=== PATIENT | female | born 1945 | race Caucasian/White ===

== ENCOUNTER → 2017-07-19 08:21 | Outpatient (CLI) | payer MEDICARE, OTHER, SELFPAY ==
[2017-07-19 12:34] LABS: AST(SGOT) 32 U/L (15-37); Alanine Aminotransfer ALT/SGPT 47 U/L (13-56); Albumin, Serum 3.5 g/dL (3.2-5.0); Alkaline Phosphatase 107 U/L (45-117); Bilirubin, Direct 0.07 mg/dL (0.00-0.30); Cholesterol 171 mg/dL (200); Globulin 3.8 g/dL (2.2-4.2); High Density Lipoprotein 50 mg/dL; Protein, Total 7.3 g/dL (6.4-8.2); Triglycerides 165 mg/dL; Very Low Density Lipoprotein 33 mg/dL (5-40)
== END ==
PROVIDERS: Family Provider Family Medicine; PCP Family Medicine; Visit Provider Physician Assistant Medical
DX: E78.5 Hyperlipidemia, unspecified (principal); Z79.899 Other long term (current) drug therapy
CPT/HCPCS: 36415; 80061; 80076

== ENCOUNTER → 2018-02-16 09:44 | Outpatient (CLI) | payer MEDICARE, OTHER, SELFPAY ==
[2018-02-16 12:18] LABS: Absolute Lymphocyte Count 1.27 X10^3/ul (0.83-4.51); Absolute Neutrophil Count 3.6 X10^3/uL (2.0-7.7); Basophil# 0.06 X10^3/uL; Basophil% 1.1 % (0-1); Eosinophil# 0.18 X10^3/uL; Eosinophils% 3.3 % (0-5); Hematocrit 39.2 % (37-47); Lymphocyte # 1.27 X10^3/ul (4.0); Lymphocyte % 23.4 % (19-41); Mean Corp Hgb Conc 30.6 g/gl (32-36); Mean Corpuscular Hgb 25.2 pg (27.0-32.0); Mean Corpuscular Volume 82.4 fL (81-99); Mean Platelet Vol. 9.8 fl (6.2-12.0); Monocyte# 0.33 X10^3/uL; Monocyte% 6.1 % (0-10); Neutrophil # 3.58 X10^3/uL (2.7-7.7); Neutrophil % 65.9 % (47-70); Platelet Count 275 K/mm3 (150-450); RBC Distribution Width CV 14.5 % (11.6-14.6); RBC Distribution Width SD 43.3 fl (35.1-43.9); Red Blood Count 4.76 M/mm3 (4.2-5.4); White Blood Count 5.4 K/mm3 (4.4-11.0)
[2018-02-16 12:21] LABS: POSITIVE COUNT NO; POSITIVE DIFFERENTIAL NO; POSITIVE MORPHOLOGY NO
[2018-02-16 12:36] LABS: ALB/GLOB Ratio 0.8 RATIO (0.9-2.4); AST(SGOT) 27 U/L (15-37); Alanine Aminotransfer ALT/SGPT 36 U/L (13-56); Albumin, Serum 3.4 g/dL (3.2-5.0); Alkaline Phosphatase 110 U/L (45-117); Anion Gap 9 (5-15); BUN 16 mg/dL (7-18); BUN/Creat Ratio 16.1 RATIO (10-20); Calcium,Total 8.5 mg/dL (8.5-10.1); Chloride 109 mmol/L (98-107); Creatinine, Serum 0.99 mg/dL (0.55-1.02); EST Glomerular Filtration Rate 59 mL/min (>60); Est Glom Filt Rate - Afr Amer 71 mL/min (>60); Globulin 4.1 g/dL (2.2-4.2); Glucose 110 mg/dL (74-106); Protein, Total 7.5 g/dL (6.4-8.2); Sodium Level 141 mmol/L (136-145); T4 Free Direct 1.21 ng/dL (0.76-1.46); Thyroid Stim Hormone (TSH) 5.14 uIU/mL (0.358-3.74)
== END ==
PROVIDERS: Family Provider Family Medicine; PCP Family Medicine; Visit Provider Nurse Practitioner Family
DX: E03.9 Hypothyroidism, unspecified (principal); E78.5 Hyperlipidemia, unspecified; R73.01 Impaired fasting glucose
CPT/HCPCS: 36415; 80053; 84439; 84443; 85025

== ENCOUNTER → 2018-03-31 10:41 | Outpatient (CLI) | payer MEDICARE, OTHER, SELFPAY ==
--- NOTE | 2018-03-31 10:44 | BI_ITS ---
MAMMOGRAPHY - BILATERAL SCREENING REASON FOR EXAM: Female, 72 years old. Routine annual screening examination. PERTINENT HISTORY: Mother with breast cancer. TECHNIQUE: Digital bilateral breast jelena (3D mammographic acquisition) in the CC and MLO projections. 2-D mediolateral oblique (MLO) and craniocaudad (CC) views of both breasts were obtained. CAD: Full Field Digital Mammography with Computer Added Detection was performed. COMPARISON: Comparison is made with prior study dated December 22, 2016 and December 16, 2015. FINDINGS: Breast Composition: There are scattered areas of fibroglandular density. There now is evidence of a 1 cm x 1 cm slightly irregular nodule in the deep upper lateral portion of the right breast. Correlation with ultrasound is recommended. No other significant abnormalities are identified. BI/SCREENING MAMM (CAD), BILAT IMPRESSION: 1 cm x 1 cm slightly irregular nodule in the deep upper lateral portion of the right breast. Correlation with ultrasound is recommended. ASSESSMENT CATEGORY: BIRADS Category 0: Incomplete. Need additional imaging evaluation. A letter regarding these results will be sent to the patient by the facility within 30 days. Approximately 10% of breast cancers are not detected by mammography. A normal mammogram should not delay biopsy of a clinically suspicious abnormality. [id number] Electronically Signed: Jarad Max MD at 12:26 EST Tel [phone], Service support ,
--- OUTSIDE RECORDS SUMMARY | 2018-05-26 06:49 | XMS RPT_ITS ---
:1945 Author Organization OHIP Support Name Relationship Address Phone RADHA THORNTON Unavailable [address] [facility] + [place] [address] R Unavailable Unavailable Unavailable NORBERTO, RADHA Unavailable [address] [facility] + [place] [address] R Unavailable Unavailable Unavailable NORBERTO, RADHA Unavailable [address] [facility] + [place] [address] R Unavailable Unavailable Unavailable NORBERTO, RADHA Unavailable [address] [facility] + [place] [address] R Unavailable Unavailable Unavailable NORBERTO, RADHA Unavailable [address] [facility] + [place] [address] R Unavailable Unavailable Unavailable NORBERTO, RADHA Unavailable [address] [facility] + [place] [address] R Unavailable Unavailable Unavailable NORBERTO, RADHA Unavailable [address] [facility] + [place] [address] R Unavailable Unavailable Unavailable NORBERTO, RADHA Unavailable [address] [facility] + [place] [address] R Unavailable Unavailable Unavailable NORBERTO, RADHA Unavailable [address] [facility] + [place] [address] R Unavailable Unavailable Unavailable NORBERTO, RADHA Unavailable [address] [facility] + [place] [address] R Unavailable Unavailable Unavailable Care Team Providers Name Role Phone Ermias Vallejo Attending Unavailable Portillo Qureshi Referring Unavailable Nova Hussein Attending Unavailable Portillo Qureshi Primary Care Unavailable Cecilia Mcmanus Attending Unavailable Cecilia Mcmanus Attending Unavailable Cathy Camargo Attending Unavailable Alexis Noriega Attending Unavailable Portillo Qureshi Referring Unavailable Portillo Qureshi Primary Care Unavailable Alexis Noriega Attending Unavailable Portillo Qureshi Referring Unavailable Hari, Alexis Humphrey Attending Unavailable Portillo Qureshi Primary Care Unavailable Portillo Qureshi Attending Unavailable Portillo Qureshi Primary Care Unavailable Portillo Qureshi Attending Unavailable Portillo Qureshi Primary Care Unavailable PROBLEMS PROBLEMS DATE TYPE CONDITION / CODE ATTENDING STATUS SOURCE 03/31/2018 Unknown Z12.31 - Encounter Portillo Qureshi Active [place] for screening Community mammogram for Hospital malignant neoplasm of Repository breast / Z12.31(ICD-10) 02/16/2018 Unknown R73.01 - Impaired RoofAlexis Active [place] fasting glucose / Community R73.01(ICD-10) Hospital Repository 02/16/2018 Unknown E03.9 - Roof, Alexis Active [place] Hypothyroidism, Community unspecified / Hospital E03.9(ICD-10) Repository 02/16/2018 Unknown E78.5 - RoofAlexis Active [place] Hyperlipidemia, [facility] unspecified / Hospital E78.5(ICD-10) Repository 02/13/2018 Unknown I25.10 - Alexis Noriega Active [place] Atherosclerotic heart [facility] disease [facility] coronary artery Repository without angina pectoris / I25.10(ICD-10) 02/13/2018 Unknown E78.00 - Pure RoofAlexis Active [place] hypercholesterolemia, [facility] unspecified / Hospital E78.00(ICD-10) Repository 02/13/2018 Unknown I10 - Essential Alexis Noriega Active [place] (primary) Community hypertension / Hospital I10(ICD-10) Repository 08/19/2017 Unknown Z98.61 - [facility] [place] [facility] status / Community Z98.61(ICD-10) Hospital Repository PROCEDURES PROCEDURES No Procedure Records FoundRESULTS RESULTS BREAST LIMITED Observed: 04/03/2018 Status: F Source: [place] UNILATERAL 12:06 PM [facility] REPOSITORY [facility] Imaging Services [address] [place] [address] Breast Limited Unilateral MR#: [id number] Acct: [id number] Name: SUJATHA THORNTON Rep #: [id number] : 1945 F 72 From: Jarad Max MD PCP: Portillo Qureshi MD Status: REG CLI Study: Breast Limited Unilateral Date of Exam: 04/03/18 Exam# [id number] Ordering Dr: Portillo Qureshi MD STUDY: ULTRASOUND BREAST - RIGHT REASON FOR EXAM: Female, 72 years old. Abnormal screening mammogram. TECHNIQUE: Axial and longitudinal images of the RIGHT breast were performed with a high resolution ultrasound transducer. COMPARISON: Comparison is made with prior mammogram done earlier in the day and prior ultrasound of the right breast dated February 11, 2014. FINDINGS: RIGHT Breast: 9 mm x 9 mm x 4 mm septated cyst at the 11:00 position of the breast at 7 cm from the nipple. US/Breast Limited Unilateral IMPRESSION: The mammographic abnormality corresponds to a small septated cyst at the 11:00 position of the breast at 7 cm from the nipple. ASSESSMENT CATEGORY: BIRADS Category 2: Benign. A letter regarding these results will be sent to the patient by the facility within 30 days. Electronically Signed: Jarad Max MD at 15:05 EST Tel [phone], Service support , CC: Portillo Qureshi MD Car Blocker: Signed SCREENING MAMM (CAD), Observed: 03/31/2018 Status: F Source: [place] BILAT 10:44 AM [facility] [place] [facility] Imaging Services [address] [place] [id number] SCREENING MAMM (CAD), BILAT MR#: [id number] Acct: [id number] Name: SUJATHA THORNTON Rep #: [id number] : 1945 F 72 From: Jarad Max MD PCP: Portillo Qureshi MD Status: [facility] CLI Study: SCREENING MAMM (CAD), BILAT Date of Exam: 03/31/18 Exam# [id number] Ordering Dr: Portillo Qureshi MD MAMMOGRAPHY - BILATERAL SCREENING REASON FOR EXAM: Female, 72 years old. Routine annual screening examination. PERTINENT HISTORY: Mother with breast cancer. TECHNIQUE: Digital bilateral breast jelena (3D mammographic acquisition) in the CC and MLO projections. 2-D mediolateral oblique (MLO) and craniocaudad (CC) views of both breasts were obtained. CAD: Full Field Digital Mammography with Computer Added Detection was performed. COMPARISON: Comparison is made with prior study dated December 22, 2016 and December 16, 2015. FINDINGS: Breast Composition: There are scattered areas of fibroglandular density. There now is evidence of a 1 cm x 1 cm slightly irregular nodule in the deep upper lateral portion of the right breast. Correlation with ultrasound is recommended. No other significant abnormalities are identified. BI/SCREENING MAMM (CAD), BILAT IMPRESSION: 1 cm x 1 cm slightly irregular nodule in the deep upper lateral portion of the right breast. Correlation with ultrasound is recommended. ASSESSMENT CATEGORY: BIRADS Category 0: Incomplete. Need additional imaging evaluation. A letter regarding these results will be sent to the patient by the facility within 30 days. Approximately 10% of breast cancers are not detected by mammography. A normal mammogram should not delay biopsy of a clinically suspicious abnormality. [id number] Electronically Signed: Jarad Max MD at 12:26 EST Tel [phone], Service support , CC: Portillo Qureshi MD Car Blocker: Signed CBC W/DIFF, AUTOMATED Collected: 02/16/2018 Status: F Source: [place] 9:47 AM [facility] [place] Order Comment: PLEASE SEND FINISH REMOVER. ROOF COPY OF CMP TYPE CODE TESTS RESULT OUT OF RANGE REFERENCE UNITS LAB L100.1000 4.4-11.0 K/mm3 Normal WBC 5.4 LAB L100.1200 4.2-5.4 M/mm3 Normal RBC 4.76 LAB L100.1300 12.0-15.0 g/dl Normal HGB 12.0 LAB L100.1400 37-47 % Normal HCT 39.2 LAB L100.1500 81-99 fL Normal MCV 82.4 LAB L100.1600 27.0-32.0 pg Low MCH 25.2 LAB L100.1700 32-36 g/gl Low MCHC 30.6 LAB L100.1810 11.6-14.6 % Normal RDW CV 14.5 LAB L100.1820 35.1-43.9 fl Normal RDW SD 43.3 LAB L100.1900 150-450 K/mm3 Normal PLT 275 LAB L100.2000 6.2-12.0 fl Normal MPV 9.8 LAB L100.2100 47-70 % Normal NEUT% 65.9 LAB L100.2200 19-41 % Normal LY% 23.4 LAB L100.2300 0-10 % Normal MONO% 6.1 LAB L100.2400 0-5 % Normal EO% 3.3 LAB L100.2500 0-1 % High BASO% 1.1 LAB L100.2550 0.0-0.9 % Normal IM GRAN % 0.200 Result Comment: IG% - Immature Granulocytes (promyelocytes, myelocytes and metamyelocytes) > 1% indicates that a LEFT SHIFT is Present. LAB L100.2620 2.0-7.7 X10 3/uL Normal Absolute Neut 3.6 LAB L100.2720 0.83-4.51 X10 3/ul Normal Absolute Lymph 1.27 Performed By: #### L100.0100 #### [facility] [address] [place], [address] COMPREHENSIVE METABOLIC Collected: 02/16/2018 Status: F Source: [place]OME[place] 9:47 AM [facility] [place] Order Comment: PLEASE SEND FINISH REMOVER. ROOF COPY OF CMP TYPE CODE TESTS RESULT OUT OF RANGE REFERENCE UNITS LAB L501.0100 74-106 mg/dL High GLU 110 Result Comment: Fasting Glucose result from 100 to 125 mg/dL suggests IMPAIRED HOMEOSTASIS per A.D.A. criteria. Please note revised GLUCOSE reference range effective 2017. LAB L501.1000 7-18 mg/dL Normal BUN 16 LAB L501.1100 0.55-1.02 mg/dL Normal CREAT,SERUM 0.99 Result Comment: The validity of the calculated GFR AND GFRAA in patients over 70 years has not been determined. Clinical correlation is essential. LAB L501.1110 >60 mL/min Low EST GFR 59 Result Comment: Non- GFR Calc LAB L501.1115 >60 mL/min Normal EST GFR - AA 71 Result Comment: GFR Calc LAB L501.1300 10-20 RATIO Normal BUN/CRE 16.1 LAB L501.1500 6.4-8.2 g/dL T Normal PROT 7.5 LAB L501.1800 3.2-5.0 g/dL Normal ALB 3.4 LAB L501.1950 2.2-4.2 g/dL Normal GLOB 4.1 LAB L501.2000 0.9-2.4 RATIO Low A/G 0.8 LAB L501.2200 8.5-10.1 mg/dL CA Normal 8.5 LAB L501.4100 15-37 U/L Normal AST 27 LAB L501.4305 45-117 U/L Normal ALK P 110 LAB L501.4405 13-56 U/L Normal ALT 36 LAB L501.4600 0.20-1.00 mg/dL T Normal BILI 0.40 LAB L501.5300 136-145 mmol/L NA Normal 141 LAB L501.5600 3.5-5.1 mmol/L K Normal 4.0 LAB L501.5900 98-107 mmol/L High CL 109 LAB L501.6100 21.0-32.0 mmol/L Normal CO2 23.0 LAB L501.6200 5-15 Normal GAP 9 Performed By: #### L500.4050, L501.9520, L506.0400 #### [facility] [address] [place], [place], [id number] THYROID STIM HORMONE Collected: 02/16/2018 Status: F Source: [place] (TSH) 9:47 AM [facility] [place] Order Comment: PLEASE SEND FINISH REMOVER. ROOF COPY OF CMP TYPE CODE TESTS RESULT OUT OF RANGE REFERENCE UNITS LAB L501.9520 0.358-3.74 uIU/mL High TSH 5.14 Performed By: #### L500.4050, L501.9520, L506.0400 #### [facility] [address] [place], [address] T4 FREE DIRECT Collected: 02/16/2018 Status: F Source: [place] 9:47 AM [facility] Order Comment: PLEASE SEND NP. NORIEGA COPY OF CMP TYPE CODE TESTS RESULT OUT OF RANGE REFERENCE UNITS LAB L506.0400 0.76-1.46 ng/dL Normal T4 FREE 1.21 DIRECT Performed By: #### L500.4050, L501.9520, L506.0400 #### [facility] [address] [place], [address] CARDIOLOGY VISIT Observed: 02/13/2018 Status: F Source: [place] REPORT 11:56 AM [facility] [place] [facility] [address] [place] [address] OFFICE VISIT Date of Service: 02/13/18 MR#: [id number] Acct: [id number] Name: SUJATHA THORNTON Rep #: [id number] : 1945 Provider: RED Noriega Age/Sex: 72/F Location: [facility] Status: Signed HPI HPI Details: SUJATHA THORNTON, is a 72 F who presents to the office today for a cardiovascular outpatient follow-up. She is a history of coronary artery disease status post angioplasty and stenting to the mid to proximal LAD and PTCA diagonal 1 in September 2014. She also has history of hypertension and hyperlipidemia. Pt denies chest, arm, jaw, or neck discomfort. Her exercise tolerance is stable. Pt denies symptoms of CHF, lightheadedness, near syncopal or syncopal episodes. Pt denies edema or claudication issues. Pt. denies orthopnea, PND, fever, chills, blood in urine, blood in stool, myalgia, or unexplainable fatigue. Pt. states when resting she gets a spell that she describes a flutter. This occurs rarely and can occur at rest and with exertion. She states feeling dizziness with quick position changes. Intake Vital Signs02/13/18 Height 5 ft 4 in 02/13/18 Weight: 190 lb 02/13/18 Body Mass Index (BMI) 32.5 02/13/18 Blood Pressure 148/78 H 02/13/18 Blood Pressure Location Lt brachial Intake Visit Reasons: 6 M FU Supervisory Clerk Required: No Accompanied by: None Is patient in pain?: No Allergies Penicillins Allergy (Unknown, Verified 02/13/18 11:13) Hives Medications Fluoxetine HCl [Sarafem] 40 mg PO DAILY 09/17/13 [History Confirmed 02/13/18] Naproxen Sodium [Aleve] 220 mg PO DAILY PRN PRN 09/17/13 [History Confirmed 02/13/18] Aspirin [Aspirin, Baby] 81 mg PO DAILY@0800 10/15/14 [History Confirmed 02/13/18] atorvastatin 80 mg tablet 80 mg PO QDAY 08/16/17 [History Confirmed 02/13/18] clopidogrel 75 mg tablet 75 mg PO QDAY 08/16/17 [History Confirmed 02/13/18] lisinopril 5 mg tablet 5 mg PO QDAY 08/16/17 [History Confirmed 02/13/18] metoprolol succinate ER 25 mg tablet,extended release 24 hr 25 mg PO QDAY 08/16/17 [History Confirmed 02/13/18] omeprazole 20 mg capsule,delayed release 20 mg PO BID cap 08/19/17 [History Confirmed 02/13/18] levothyroxine 100 mcg capsule 100 mcg PO DAILY 02/13/18 [History Confirmed 02/13/18] Ejection fraction %: 65 to 70 PFSH Medical History Pure hypercholesterolemia (Chronic) Atherosclerosis of torres martinez coronary artery of torres martinez heart without angina pectoris (Chronic) Palpitations (Chronic) Nonrheumatic mitral valve insufficiency (Chronic) Abnormal stress test (Chronic) Encounter for long-term current use of high risk medication (Chronic) Bradycardia, sinus (Chronic) Essential (primary) hypertension (Chronic) Dizziness and giddiness (Acute) Surgical History History of carpal tunnel surgery (Resolved) History of tonsillectomy (Resolved) H/O percutaneous transluminal coronary angioplasty (Resolved) History of herniated intervertebral disc (Resolved) Family History Mother Breast cancer Hypertension Father Cancer lung Brother CAD (coronary artery disease) Myocardial infarction Social History Smoking Status: Never smoker alcohol intake: current alcohol intake frequency: a few times a month Alcohol type: wine substance use type: does not use caffeine: Yes Type: coffee Number of servings: 2 what type of physical activity do you participate in: none seatbelt use: always do you feel safe at home: Yes ROS Const Const: Negative for fatigue, weakness, body ache, fever(s) or chills ENT ENT: Positive for dizziness Cardio Chest Pain: No Palpitations: Yes (unchanged) Edema: None Muscle aches with walking: None Resp Respiratory: Negative for SOB with activity, SOB at rest, SOB orthopnea\SOB lying down or paroxysmal nocturnal dyspnea GI GI: Negative nausea, black,tarry stools, bright, red blood in stools or vomiting blood/hematemesis : Negative for hematuria or frequent nighttime urination/ nocturia Musc Musc: Positive for joint pain; negative for muscle aches/ myalgia Skin Skin: Negative non-healing lesions or rash Neuro Neuro: Positive for dizziness; negative for weakness, lightheadedness, near syncope, syncope or orthostatic symptoms Endo Endo: Negative for fatigue Allergy Allergy/Immunology: Negative for rash Cardiology Exam Const Appearance: cooperative, healthy appearing, comfortable and no acute distress Nutritional Appearance: average body habitus and well nourished Orientation: alert, awake and oriented x3 Head Head: normal to inspection Ears: hearing grossly normal bilaterally Nose: external nose normal Face and Sinus: face symmetric Mouth: oral mucosae normal Eyes General: appearance normal, both eyes and all related structures Eyelids: eyelids normal EOM: EOM intact bilaterally Neck Neck: no JVD and normal visual inspection Carotids: normal carotid upstroke Chest Chest inspection: normal inspection of the chest and normal respiratory effort; negative cough Auscultation: Bilateral: Clear to Auscultation Cardio Rate: regular rate Rhythm: regular rhythm Heart sounds: S1 normal and S2 normal; negative rub or gallop Murmur: Grade 1/6, soft and RLSB GI GI: normal to inspection Neuro General: alert, awake, oriented x3 and CN's II-XI intact bilaterally Skin Skin: no rashes or lesions noted Extremities Pulses: Normal: Right Posterior Tibial Pulse, Left Posterior Tibial Pulse, Right Radial Pulse, Left Radial Pulse Lower Extremity Edema: None: Bilateral Psych Psychological: normal affect Supplemental Info Heart catheterization from September 2014 showed an estimated ejection fraction of 65%, left main coronary artery that is angiographically normal, proximal LAD with 95% stenosis second diagonal 35% stenosis, LCx with minimal luminal irregularities as a large codominant vessel, intermediate ramus that was angiographically normal, RCA was a moderate-sized codominant vessel with proximal 25% stenosis, and trace mitral valve regurgitation. She underwent successful stenting of mid and proximal LAD. Echocardiogram from September 2014 should estimate ejection fraction of 65%, mild mitral valve insufficiency, trivial tricuspid valve insufficiency, trivial pulmonic valve insufficiency, and an RVSP of 30 mmHg. Assessment AND Plan 1. Atherosclerosis of torres martinez coronary artery of torres martinez heart without angina pectoris I25.10 S/P angioplasty and stenting to mid to proximal LAD and PTCA to first diagonal in September 2014 @ CC; Plan Patient denies any chest pain, arm pain, jaw pain, neck pain, shortness of breath, or fatigue suggestive of angina at this time. We will continue to monitor this. We will not make any medication regimen changes and will continue risk factor modification. Orders Orders: 2. Essential (primary) hypertension I10 Plan Patient's blood pressure is slightly elevated today in office. She did not take her medications prior to office visit. She is instructed to continue medications daily and to monitor blood pressure at home. She was also instructed to contact our office if she knows that it is consistently elevated. Orders Orders: 3. Pure hypercholesterolemia E78.00 Plan Her lipid panel in June 2017 showed cholesterol: 71, HDL: 50, LDL: 88, and triglycerides: 165. She will repeat liver and lipid panel at her earliest convenience. She will continue with current high-dose statin medication in the interim. Further recommendation will be made based on laboratory results. Orders Orders: Plan Detail Additional Comments She will keep July [address] Vallejo for further evaluation. Thank you for allowing us to participate in the patient's plan of care, if you have any questions please do not hesitate to call. This note was generated using a voice recognition system and there may be incorrect words, spelling, or punctuation that were not noted upon reviewing the office note prior to saving. Coding Level of Care Code Off vis,est,level 3 Diagnoses Atherosclerosis of torres martinez coronary artery of torres martinez heart without angina pectoris I25.10 Essential (primary) hypertension I10 Pure hypercholesterolemia E78.00 Coding Level of Care Code Off vis,est,level 3 Diagnoses Atherosclerosis of torres martinez coronary artery of torres martinez heart without angina pectoris I25.10 Essential (primary) hypertension I10 Pure hypercholesterolemia E78.00 02/13/18 1156 <Electronically signed by Alexis SAAVEDRA> Date Alexis SAAVEDRA Cosigner Signature: Date (if applicable) CC: Portillo Qureshi MD CARDIOLOGY VISIT Observed: 08/19/2017 Status: F Source: [place] REPORT 4:37 PM [facility] [place] [address] [place] [address] OFFICE VISIT Date of Service: 08/19/17 MR#: [id number] Acct: [id number] Name: SUJATHA THORNTON Rep #: [id number] : 1945 Provider: RED Noriega Age/Sex: 72/F Location: [facility] [place] Status: Signed HPI HPI Details: SUJATHA THORNTON, is a 72 F who presents to the office today for a cardiovascular outpatient follow-up. She is a history of coronary artery disease status post angioplasty and stenting to the mid to proximal LAD and diagonal 1 in September 2014. She also has history of hypertension and hyperlipidemia. Pt denies chest, arm, jaw, or neck discomfort. Her exercise tolerance is stable. Pt denies symptoms of CHF, lightheadedness, near syncopal or syncopal episodes. Pt denies edema or claudication issues. Pt. denies orthopnea, PND, fever, chills, blood in urine, blood in stool, myalgia, or unexplainable fatigue. Pt. states when resting she gets a spell that she describes a flutter and chest pressure. This occurs rarely. Intake Vital Signs08/19/17 Height 5 ft 4 in 08/19/17 Weight: 188 lb 08/19/17 Body Mass Index (BMI) 32.2 08/19/17 Blood Pressure 132/70 Intake Visit Reasons: 6 M FU Supervisory Clerk Required: No Accompanied by: NONE Is patient in pain?: No Allergies Penicillins Allergy (Unknown, Verified 08/19/17 13:54) Hives Medications Fluoxetine HCl [Sarafem] 40 mg PO DAILY 09/17/13 [History Confirmed 08/19/17] Naproxen Sodium [Aleve] 220 mg PO DAILY PRN PRN 09/17/13 [History Confirmed 08/19/17] Aspirin [Aspirin, Baby] 81 mg PO DAILY@0800 10/15/14 [History Confirmed 08/19/17] Levothyroxine [Synthroid] 125 mcg PO DAILY 10/15/14 [History Confirmed 08/19/17] atorvastatin 80 mg tablet 80 mg PO QDAY 08/16/17 [History Confirmed 08/19/17] clopidogrel 75 mg tablet 75 mg PO QDAY 08/16/17 [History Confirmed 08/19/17] lisinopril 5 mg tablet 5 mg PO QDAY 08/16/17 [History Confirmed 08/19/17] metoprolol succinate ER 25 mg tablet,extended release 24 hr 25 mg PO QDAY 08/16/17 [History Confirmed 08/19/17] nitroglycerin 0.4 mg sublingual tablet 0.4 mg SUBLINGUAL Q5M PRN 08/16/17 [History Confirmed 08/19/17] omeprazole 20 mg capsule,delayed release 20 mg PO BID cap 08/19/17 [History Confirmed 08/19/17] Ejection fraction %: 65 to 70 PFSH Medical History Abnormal stress test (Chronic) Encounter for long-term current use of high risk medication (Chronic) Bradycardia, sinus (Chronic) Essential (primary) hypertension (Chronic) Hyperlipidemia (Chronic) Atherosclerotic heart disease of torres martinez coronary artery without angina pectoris (Chronic) Dizziness and giddiness (Acute) Surgical History History of carpal tunnel surgery (Resolved) H/O neck surgery (Resolved) History of tonsillectomy (Resolved) H/O percutaneous transluminal coronary angioplasty (Resolved) Family History Mother Breast cancer Hypertension Father Cancer lung Brother CAD (coronary artery disease) Myocardial infarction Social History Smoking Status: Never smoker alcohol intake: current alcohol intake frequency: holidays/special occasions only substance use type: does not use caffeine: Yes Type: coffee Number of servings: 2 what type of physical activity do you participate in: none seatbelt use: always do you feel safe at home: Yes ROS Const Const: Negative for fatigue, weakness, body ache, fever(s) or chills ENT ENT: Positive for dizziness Cardio Chest Pain: No Palpitations: Yes Edema: None Muscle aches with walking: None Resp Respiratory: Negative for SOB with activity, SOB at rest, SOB orthopnea\SOB lying down or paroxysmal nocturnal dyspnea GI GI: Negative nausea, black,tarry stools, bright, red blood in stools or vomiting blood/hematemesis : Negative for hematuria or frequent nighttime urination/ nocturia Musc Musc: Negative for muscle aches/ myalgia Neuro Neuro: Positive for dizziness; negative for weakness, lightheadedness, near syncope, syncope or orthostatic symptoms Endo Endo: Negative for fatigue Supplemental Info Heart catheterization from September 2014 showed an estimated ejection fraction of 65%, left main coronary artery that is angiographically normal, proximal LAD with 95% stenosis second diagonal 35% stenosis, LCx with minimal luminal irregularities as a large codominant vessel, intermediate ramus that was angiographically normal, RCA was a moderate-sized codominant vessel with proximal 25% stenosis, and trace my valve regurgitation. She underwent successful stenting of mid and proximal LAD. Echocardiogram from September 2014 should estimate ejection fraction of 65%, mild mitral valve insufficiency, trivial tricuspid valve insufficiency, trivial pulmonic valve insufficiency, and an RVSP of 30 mmHg. Assessment AND Plan 1. Atherosclerosis of torres martinez coronary artery of torres martinez heart without angina pectoris I25.10 S/P angioplasty and stenting to mid to proximal LAD and first diagonal in September 2014; Plan Patient's EKG in office today showed sinus rhythm at a rate of 60 bpm with nonspecific T-wave abnormality. Patient denies any chest pain, arm pain, jaw pain, neck pain, shortness of breath, or fatigue suggestive of angina at this time. We will continue to monitor this. We will not make any medication regimen changes and will continue risk factor modification. Orders Orders: 2. Essential (primary) hypertension I10 Plan Patient's blood pressure is well-controlled today in the office. We will continue to monitor this. We will not make any medication regimen changes. 3. Pure hypercholesterolemia E78.00; E78.0 Plan Patient's most recent lipid panel from June 2017 showed cholesterol: 171, HDL: 50, LDL: 88, and triglycerides: 165. She will continue with current cholesterol- lowering medication. She is expected to repeat both liver and lipid profile approximately 6 months. We will wait for the results of these laboratory tests for further recommendation. 4. 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 Patient denies any shortness of breath or activity intolerance. We will continue to monitor this through history, exam, and repeat echocardiogram as needed. 5. Palpitations R00.2 Plan Patient describes very infrequent/rare episodes of palpitations. She denies any secondary symptoms during these episodes. These episodes are very brief. We will continue to monitor this. She was instructed to contact our office if she notices secondary symptoms with this and/or notices increase in frequency. At that time we can consider an event monitor for further evaluation. She will continue current medications. Plan Detail Other Orders Orders: Additional Comments Thank you for allowing us to participate in the patients plan of care, if you have any questions please do not hesitate to call. This note was generated using a voice recognition system and there may be incorrect words, spelling or punctuation that were not noted when reviewing the office note prior to saving. 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 Palpitations R00.2 08/19/17 1637 <Electronically signed by Alexis ARAUJOC> Date Alexis Noriega FINISH REMOVER-C Cosigner Signature: Date (if applicable) CC: Portillo Qureshi 12 LEAD EKG PERFORMED Observed: 08/19/2017 Status: F Source: [place] [facility] [place] 1:49 PM [facility] [address] [place] [address] 12 Lead EKG performed by [facility] 08/19/17 1348 MR#: [id number] Acct: [id number] Name: SUJATHA THORNTON Rep #: [id number] : 1945 72 From: Alexis Noriega FINISH REMOVER-C Attending Dr: Alexis Noriega NP Status: DEP AMB Ordering Dr: Alexis Noriega Date: 08/19/17 [place] [facility] [place]: F C Admitted: [facility]/12 Lead EKG performed by [facility] ECG Report Interpretation Sinus Rhythm Nonspecific T-abnormalityABNORMAL Electronically signed on 08/24/2017 at 16:20 by Ermias Vallejo 08/24/17 1621 Date Alexis Noriega FINISH REMOVERArielle CC: Portillo Qureshi Date Dictated: 08/19/17 1348 Date Transcribed: 08/19/171347 Car Blocker: ZOË Signed LIVER PROFILE Collected: 07/19/2017 Status: F Source: [place] 8:25 AM [facility] Order Comment: Order Date: 12/06/16 Order Info: 0788-1 - *Hepatic Function Panel Order Info: 09204-7 - *Lipid Profile CC PCP Comments: 12 hours fasting, may have water. TYPE CODE TESTS RESULT OUT OF RANGE REFERENCE UNITS LAB L501.1500 6.4-8.2 g/dL Normal T PROT 7.3 LAB L501.1800 3.2-5.0 g/dL Normal ALB 3.5 LAB L501.1950 2.2-4.2 g/dL Normal GLOB 3.8 LAB L501.4100 15-37 U/L Normal AST 32 LAB L501.4305 45-117 U/L Normal ALK P 107 LAB L501.4405 13-56 U/L Normal ALT 47 Result Comment: Please note revised ALT reference range effective 2017. LAB L501.4600 0.20-1.00 mg/dL Normal T BILI 0.40 LAB L501.4700 0.00-0.30 mg/dL Normal D BILI 0.07 Performed By: #### L500.3400 #### [facility] [address] [facility] [place], [place], [id number] LIPID PROFILE Collected: 07/19/2017 Status: F Source: [place] 8:25 AM [facility] Order Comment: Order Date: 12/06/16 Order Info: 0788-1 - *Hepatic Function Panel Order Info: [id number] - *Lipid Profile CC PCP Comments: 12 hours fasting, may have water. TYPE CODE TESTS RESULT OUT OF RANGE REFERENCE UNITS LAB L501.4900 200 mg/dL Normal CHOL 171 Result Comment: <200 mg/dL Desirable 200-240 mg/dL Borderline >240 mg/dL High Risk LAB L501.5000 mg/dL Normal TRIG 165 Result Comment: The drugs N-Acetylcysteine and Metamizole may falsely depress this assay. Serum Triglycerides Reference Interval Normal <150 mg/dL Borderline high 150 - 199 mg/dL High 200 - 499 mg/dL Very High > or = 500 mg/dL LAB L501.6400 mg/dL Normal HDL 50 Result Comment: The drugs N-Acetylcysteine and Metamizole may falsely depress this assay. Reference Range HDL <40 mg/dL Low HDL Cholesterol HDL >or= 60 mg/dL High HDL Cholesterol LAB L501.6500 0-130 mg/dL Normal LDL 88 LAB L501.6600 5-40 mg/dL Normal VLDL 33 Performed By: #### L500.4100 #### [facility] [address] [place], [address] ALLERGIES ALLERGIES DATE TYPE / CODE NAME / CODE REACTION SEVERITY SOURCE 02/13/2018 Drug Penicillins/ Hives Unknown [facility] Allergy/4160 [id number]([facility] [address](SNOMED XNORM) Repository CT) ENCOUNTERS ENCOUNTERS ADMIT/DISCHARGE ACCOUNT ADMITTING ENCOUNTER LOCATION SOURCE NUMBER CLASS 04/03/2018 [id number] Ambulatory [place] 6 [facility] ing:OPUS Repository 03/31/2018 [id number] Ambulatory [place] 6 [facility] ing:OPBI Repository 02/16/2018 [id number] Ambulatory [place] 8 [facility] ing:BFHLAB Repository 02/13/2018/ [id number] Ambulatory B[facility]:B [place] 8 0 [facility] Repository 08/19/2017/ [id number] Ambulatory BMSBuilding:B [place] 8 3 [facility] Repository 08/16/2017 [id number] Ambulatory B[place] 2 [facility] Repository 08/10/2017 [id number] Ambulatory BMSBuilding:B [place] 3 [facility] Repository 08/10/2017 [id number] Ambulatory BMSBuilding:B [place] 9 [facility] Repository 07/19/2017 [id number] [facility] 9 [facility] ing:BFHLAB Repository 07/18/2017 [id number] Ambulatory BMSBuilding:B [place] 0 [facility] Repository PAYERS PAYERS ENCOUNTER GUARANTOR PAYER SUBSCRIBER SOURCE 04/03/2018 RADHA H Primary SUJATHA [place] [id number] W Insurance:MEDICARE LANCEDOB: [facility] PART A [facility] [id number] [facility]ERN Number: [place] [id number]: (330) Date:2018-03-31 [phone] () 04/03/2018 Secondary RADHA H [place] Insurance:WPS LANCEDOB: [facility] [id number] Hospital Number: Repository [id number] Date:[id number] [address]KB: 04/03/2018 Tertiary NOT GIVENUNK [place] Insurance:SELF PAY [facility] Number: Effective Repository Date:2018-03-31 03/31/2018 RADHA H Primary SUJATHA [place] [id number] W Insurance:MEDICARE LANCEDOB: [facility] [id number] [facility] Number: [place] [id number]: (330) Date:2018-02-16 [phone] () 03/31/2018 Secondary RADHA H [place] Insurance:WPS LANCEDOB: [facility] [id number] Hospital Number: Repository [id number] Date:9492-29-97TW [facility] [address] [place] [address]SO: 03/31/2018 Tertiary NOT GIVENUNK [place] Insurance:SELF PAY [facility] Number: Effective Repository Date:2018-02-16 02/16/2018 RADHA H Primary SUJATHA [place] [id number] W Insurance:MEDICARE LANCEDOB: [facility] [id number] Hospital [facility]STERN Number: [place] [id number]: 330) Date:2018-02-16 [phone] () 02/16/2018 Secondary RADHA H [place] Insurance:WPS LANCEDOB: [facility] [id number] Hospital Number: Repository [id number] Date:2342-47-03LW [address] [address]GH: 02/16/2018 Tertiary NOT GIVENUNK [place] Insurance:SELF PAY [facility] Number: Effective Repository Date:2018-02-16 02/13/2018 RADHA H Primary SUJATHA [place] [id number] W Insurance:MEDICARE LANCEDOB: [facility] [id number] Hospital [facility] Number: [place]ository [place] [id number]: (330) Date:2017-08-19 [phone] () 02/13/2018 Secondary RADHA H [place] Insurance:WPS LANCEDOB: [facility] [id number] Hospital Number: Repository [id number] Date:3063-16-89MO [address] [place] [address]UZ: 02/13/2018 Tertiary NOT GIVENUNK [place] Insurance:SELF PAY [facility] Number: Effective Repository Date:2018-02-13 08/19/2017 RADHA H Primary SUJATHA [place] [id number] W Insurance:MEDICARE LANCEDOB: [id number] Number: [place] [id number]: (330) Date:2017-06-15 [phone] () 08/19/2017 Secondary RADHA H [place] Insurance:WPS LANCEDOB: [facility] [id number] Hospital Number: Repository [id number] Date:4734-51-59MC [address] [place] [address]DD: 08/19/2017 Tertiary NOT GIVENUNK [place] Insurance:SELF PAY [facility] Number: Effective Repository Date:2017-08-19 08/16/2017 RADHA H Primary SUJATHA [place] [id number] W Insurance:MEDICARE LANCEDOB: [facility] [id number] County Hospital Number: [place] [id number]: (330) Date:2017-08-16 [phone] () 08/16/2017 Secondary RADHA H [place] Insurance:WPS LANCEDOB: [facility] [id number] Hospital Number: Repository [id number] Date:0910-17-37CL [address] [place] [address]NZ: 08/16/2017 Tertiary NOT GIVENUNK [place] Insurance:SELF PAY [facility] Number: Effective Repository Date:2017-08-16 08/10/2017 RADHA H Primary SUJATHA [place] [id number] W Insurance:MEDICARE LANCEDOB: [place] [id number] Number: Repository [place] [id number]: (330) Date:2017-08-10 () 08/10/2017 Secondary RADHA H [place] Insurance:WPS LANCEDOB: [place] [id number] Hospital Number: Repository [id number] Date:9550-64-51KV [address] [place] [address]ZG: 08/10/2017 Tertiary NOT GIVENUNK [place] Insurance:SELF PAY [facility] Number: Effective Repository Date:2017-08-10 08/10/2017 RADHA H Primary SUJATHA [place] [id number] W Insurance:MEDICARE LANCEDOB: [facility] [id number] [facility] Number: [place]ository [place] [id number]: (330) Date:2017-08-10 [phone] () 08/10/2017 Secondary RADHA H [place] Insurance:WPS LANCEDOB: [place] [id number] Hospital Number: Repository [id number] Date:0153-47-57LC [address] [place] [address]NQ: 08/10/2017 Tertiary NOT GIVENUNK [place] Insurance:SELF PAY [facility] Number: Effective Repository Date:2017-08-10 07/19/2017 RADHA H Primary SUJATHA [place] [id number] W Insurance:MEDICARE LANCEDOB: [address]03-23[facility] Number: Repository [place] [id number]: (330) Date:2017-07-19806 () 07/19/2017 Secondary RADHA H [place] Insurance:WPS LANCEDOB: [facility] [id number] Hospital Number: Repository [id number] Date:4547-26-74JL [address] [place] [address]VP: 07/19/2017 Tertiary NOT GIVENUNK [place] Insurance:SELF PAY [facility] Number: Effective Repository Date:2017-07-19 07/18/2017 Radha H Primary SUJATHA [place] [id number] W Insurance:MEDICARE LANCEDOB: [facility] [id number] [facility] Number: Repository [place] [id number]: (330) Date:2017-04-13 [phone] () 07/18/2017 Secondary Radha H [place] Insurance:WPS LanceDOB: [facility] [id number] Hospital Number: Repository [id number] Date:5582-99-02AJ [address] [place] [address]RP: 07/18/2017 Tertiary NOT GIVENUNK [place] Insurance:SELF PAY [facility] Number: Effective Repository Date:2017-04-13
== END ==
PROVIDERS: Family Provider Family Medicine; PCP Family Medicine; Visit Provider Family Medicine
DX: Z12.31 Encounter for screening mammogram for malignant neoplasm of breast (principal)
CPT/HCPCS: 77063; 77067

== ENCOUNTER → 2018-04-03 12:04 | Outpatient (CLI) | payer MEDICARE, OTHER, SELFPAY ==
--- NOTE | 2018-04-03 12:05 | US_ITS ---
STUDY: ULTRASOUND BREAST - RIGHT REASON FOR EXAM: Female, 72 years old. Abnormal screening mammogram. TECHNIQUE: Axial and longitudinal images of the RIGHT breast were performed with a high resolution ultrasound transducer. COMPARISON: Comparison is made with prior mammogram done earlier in the day and prior ultrasound of the right breast dated February 11, 2014. FINDINGS: RIGHT Breast: 9 mm x 9 mm x 4 mm septated cyst at the 11:00 position of the breast at 7 cm from the nipple. US/Breast Limited Unilateral IMPRESSION: The mammographic abnormality corresponds to a small septated cyst at the 11:00 position of the breast at 7 cm from the nipple. ASSESSMENT CATEGORY: BIRADS Category 2: Benign. A letter regarding these results will be sent to the patient by the facility within 30 days. Electronically Signed: Jarad Max MD at 15:05 EST Tel [phone], Service support ,
--- OUTSIDE RECORDS SUMMARY | 2018-05-27 18:18 | XMS RPT_ITS ---
:1945 Author Organization OHIP Support Name Relationship Address Phone RADHA THORNTON Unavailable [address] [facility] + [place] [address] R Unavailable Unavailable Unavailable NORBERTO, RADHA Unavailable [address] [facility] + [place] [address] R Unavailable Unavailable Unavailable NORBERTO, RADHA Unavailable [address] [facility] + [place] [address] R Unavailable Unavailable Unavailable NORBERTO, RADHA Unavailable [address] [facility] + [place] [address] R Unavailable Unavailable Unavailable NORBERTO, RADHA Unavailable [address] [facility] + [place] [address] R Unavailable Unavailable Unavailable NORBERTO, RADHA Unavailable [address] [facility] + [place] [address] R Unavailable Unavailable Unavailable NORBERTO, RADHA Unavailable [address] [facility] + [place] [address] R Unavailable Unavailable Unavailable NORBERTO, RADHA Unavailable [address] [facility] + [place] [address] R Unavailable Unavailable Unavailable NORBERTO, RADHA Unavailable [address] [facility] + [place] [address] R Unavailable Unavailable Unavailable NORBERTO, RADHA Unavailable [address] [facility] + [place] [address] R Unavailable Unavailable Unavailable Care Team Providers [...] Repository 02/16/2018 Unknown E78.5 - RoofAlexis Active [place] Hyperlipidemia, [facility] unspecified / Hospital E78.5(ICD-10) Repository 02/13/2018 Unknown I25.10 - Alexis Noriega Active [place] Atherosclerotic heart [facility] disease [facility] coronary artery Repository without angina pectoris / I25.10(ICD-10) 02/13/2018 Unknown E78.00 - Pure RoofAlexis Active [place] hypercholesterolemia, [facility] unspecified / Hospital E78.00(ICD-10) Repository 02/13/2018 Unknown I10 - Essential Alexis Noriega Active [place] (primary) Community hypertension / Hospital I10(ICD-10) Repository 08/19/2017 Unknown Z98.61 - [facility]ary [facility] [place] angioplasty status / Community Z98.61(ICD-10) Hospital Repository PROCEDURES PROCEDURES No Procedure Records FoundRESULTS RESULTS BREAST LIMITED Observed: 04/03/2018 Status: F Source: [place] UNILATERAL 12:06 PM [facility] REPOSITORY [facility] Imaging Services [address] [place] [address] Breast Limited Unilateral MR#: [id number] Acct: [id number] Name: SUJATHA THORNTON Rep #: [id number] : 1945 F 72 From: Jarad Max MD PCP: Portillo Qureshi MD Status: REG CLI Study: Breast Limited Unilateral Date of Exam: 04/03/18 Exam# [id number] Ordering Dr: Portillo Qureshi MD STUDY: ULTRASOUND [...] Jarad Max MD at 15:05 EST Tel [phone], Service support , CC: Portillo Qureshi MD Assembler Deck [employer] Hull: Signed SCREENING MAMM (CAD), Observed: 03/31/2018 Status: F Source: [place] BILAT 10:44 AM [facility] REPOSITORY [facility] Imaging Services [address] [place] [address] SCREENING MAMM (CAD), BILAT MR#: [id number] Acct: [id number] Name: SUJATHA THORNTON Rep #: [id number] : 1945 F 72 From: Jarad Max MD PCP: Portillo Qureshi MD Status: [facility] CLI Study: SCREENING MAMM (CAD), BILAT Date of Exam: 03/31/18 Exam# [id number] Ordering Dr: Portillo Qureshi MD MAMMOGRAPHY - [...] delay biopsy of a clinically suspicious abnormality. [id number] Electronically Signed: Jarad Max MD at 12:26 EST Tel [phone], Service support , CC: Portillo Qureshi MD Assembl[employer] Hull: Signed CBC W/DIFF, AUTOMATED Collected: 02/16/2018 Status: F Source: [place] 9:47 AM [facility] REPOSITORY Order Comment: PLEASE SEND PAPER SALES REPRESENTATIVE. ROOF COPY OF CMP TYPE CODE TESTS [...] Lymph 1.27 Performed By: #### L100.0100 #### [facility] [address] [place], [address] COMPREHENSIVE METABOLIC Collected: 02/16/2018 Status: F Source: [place] GOMEZ 9:47 AM [facility] REPOSITORY Order Comment: PLEASE SEND PAPER SALES REPRESENTATIVE. ROOF COPY OF CMP TYPE CODE TESTS [...] Performed By: #### L500.4050, L501.9520, L506.0400 #### [facility] [address] [place], [place], [id number] THYROID STIM HORMONE Collected: 02/16/2018 Status: F Source: [place] (TSH) 9:47 AM [facility] REPOSITORY Order Comment: PLEASE SEND PAPER SALES REPRESENTATIVE. ROOF COPY OF CMP TYPE CODE TESTS RESULT OUT OF RANGE REFERENCE UNITS LAB L501.9520 0.358-3.74 uIU/mL High TSH 5.14 Performed By: #### L500.4050, L501.9520, L506.0400 #### [facility] [address] [place], [address] T4 FREE DIRECT Collected: 02/16/2018 Status: F Source: [place] 9:47 AM [facility] REPOSITORY Order Comment: PLEASE SEND NP. NORIEGA COPY OF CMP TYPE CODE TESTS RESULT OUT OF RANGE REFERENCE UNITS LAB L506.0400 0.76-1.46 ng/dL Normal T4 FREE 1.21 DIRECT Performed By: #### L500.4050, L501.9520, L506.0400 #### [facility] [address] [place], [address] CARDIOLOGY VISIT Observed: 02/13/2018 Status: F Source: [place] REPORT 11:56 AM [facility] REPOSITORY [facility] [address] [place] [address] OFFICE VISIT Date of Service: 02/13/18 MR#: [id number] Acct: [id number] Name: SUJATHA THORNTON Rep #: [id number] : 1945 Provider: RED Noriega Age/Sex: 72/F Location: [facility] Status: Signed HPI HPI Details: SUJATHA THORNTON, [...] brachial Intake Visit Reasons: 6 M FU Preparation Room Worker Required: No Accompanied by: None Is patient [...] Medical History Pure hypercholesterolemia (Chronic) Atherosclerosis of [place] coronary artery of [place] heart without angina pectoris (Chronic) Palpitations (Chronic) [...] mmHg. Assessment AND Plan 1. Atherosclerosis of [place] coronary artery of [place] heart without angina pectoris I25.10 S/P angioplasty [...] Code Off vis,est,level 3 Diagnoses Atherosclerosis of [place] coronary artery of [place] heart without angina pectoris I25.10 Essential (primary) hypertension I10 Pure hypercholesterolemia E78.00 Coding Level of Care Code Off vis,est,level 3 Diagnoses Atherosclerosis of [place] coronary artery of [place] heart without angina pectoris I25.10 Essential (primary) hypertension I10 Pure hypercholesterolemia E78.00 02/13/18 1156 <Electronically signed by Alexis SAAVEDRA> Date Alexis SAAVEDRA Cosigner Signature: Date (if applicable) CC: Portillo Qureshi MD CARDIOLOGY VISIT Observed: 08/19/2017 Status: F Source: [place] REPORT 4:37 PM [facility] REPOSITORY [facility] [address] [place] [address] OFFICE VISIT Date of Service: 08/19/17 MR#: [id number] Acct: [id number] Name: SUJATHA THORNTON Rep #: [id number] : 1945 Provider: RED Noriega Age/Sex: 72/F [place] [facility] Status: Signed HPI HPI Details: SUJATHA THORNTON, [...] 132/70 Intake Visit Reasons: 6 M FU Preparation Room Worker Required: No Accompanied by: NONE Is patient [...] (Chronic) Hyperlipidemia (Chronic) Atherosclerotic heart disease of [place] coronary artery without angina pectoris (Chronic) Dizziness [...] mmHg. Assessment AND Plan 1. Atherosclerosis of [place] coronary artery of [place] heart without angina pectoris I25.10 S/P angioplasty [...] Follow Up 12 Months (PFM) 6 Months (PAPER SALES REPRESENTATIVE/PA) Coding Level of Care Code Off vis,est,level 3 Diagnoses Atherosclerosis of [place] coronary artery of [place] heart without angina pectoris I25.10 [place] vs. transplanted heart: [place] heart Essential (primary) hypertension I10 Pure hypercholesterolemia E78.00; E78.0 Hyperlipidemia type: pure hypercholesterolemia Nonrheumatic mitral valve insufficiency I34.0 Palpitations R00.2 Coding Level of Care Code Off vis,est,level 3 Diagnoses Atherosclerosis of [place] coronary artery of [place] heart without angina pectoris I25.10 [place] vs. transplanted heart: [place] heart Essential (primary) hypertension I10 Pure hypercholesterolemia E78.00; E78.0 Hyperlipidemia type: pure hypercholesterolemia Nonrheumatic mitral valve insufficiency I34.0 Palpitations R00.2 08/19/17 1637 <Electronically signed by Alexis ARAUJOC> Date Alexis Noriega PAPER SALES REPRESENTATIVE-C Cosigner Signature: Date (if applicable) CC: Portillo Qureshi 12 LEAD EKG PERFORMED Observed: 08/19/2017 Status: F Source: [place] [facility] 1:49 PM [facility] REPOSITORY [facility] [address] [place] [address] 12 Lead EKG performed by [facility] 08/19/17 1348 MR#: [id number] Acct: [id number] Name: SUJATHA THORNTON Rep #: [id number] : 1945 72 From: Alexis Noriega PAPER SALES REPRESENTATIVE-C Attending Dr: Alexis Noriega NP Status: DEP AMB Ordering Dr: Alexis Noriega Date: 08/19/17 [place] [facility] Sex: F C Admitted: [facility]12 Lead EKG performed by [facility] ECG Report Interpretation Sinus Rhythm Nonspecific T-abnormalityABNORMAL Electronically signed on 08/24/2017 at 16:20 by Ermias Vallejo 08/24/17 1621 Date Alexis Noriega PAPER SALES REPRESENTATIVEArielle CC: Portillo Qureshi Date Dictated: 08/19/17 1348 Date Transcribed: 08/19/171347 Assembler Deck [employer] Hull: ZOË Signed LIVER PROFILE Collected: 07/19/2017 Status: F Source: [place] 8:25 AM [facility] REPOSITORY Order Comment: Order Date: 12/06/16 Order Info: 0788-1 - *Hepatic Function Panel Order Info: 91048-2 - *Lipid Profile CC PCP Comments: 12 [...] BILI 0.07 Performed By: #### L500.3400 #### [facility] [address] [facility] [place], [place], [address] LIPID PROFILE Collected: 07/19/2017 Status: F Source: [place] 8:25 AM [facility] REPOSITORY Order Comment: Order Date: 12/06/16 Order Info: 0788-1 - *Hepatic Function Panel Order Info: 56902-0 - *Lipid Profile CC PCP Comments: 12 [...] VLDL 33 Performed By: #### L500.4100 #### [facility] [address] [place], [address] ALLERGIES ALLERGIES DATE TYPE / CODE NAME / CODE REACTION SEVERITY SOURCE 02/13/2018 Drug Penicillins/ Hives Unknown [facility] Allergy/4160 [id number]([facility] 22461(SNOMED XNORM) Repository CT) ENCOUNTERS ENCOUNTERS ADMIT/DISCHARGE ACCOUNT ADMITTING ENCOUNTER LOCATION SOURCE NUMBER CLASS 04/03/2018 [id number] Ambulatory [place] 6 [facility] ing:OPUS Repository 03/31/2018 [id number] Ambulatory [place] 6 [facility] ing:OPBI Repository 02/16/2018 [id number] Ambulatory [place] 8 [facility] ing:BFHLAB Repository 02/13/2018/ [id number] Ambulatory [facility]:B [place] 8 0 [facility] Repository 08/19/2017/ [id number] Ambulatory [facility]:B [place] 8 3 [facility] Repository 08/16/2017 [id number] Ambulatory [facility] [place] 2 [facility] Repository 08/10/2017 [id number] Ambulatory BMSBuilding:B [place] 3 [facility] Repository 08/10/2017 [id number] Ambulatory BMSBuilding:B [place] 9 [facility] Repository 07/19/2017 [id number] Ambulatory [facility] 9 [facility] ing:BFHLAB Repository 07/18/2017 [id number] Ambulatory BMSBuilding:B [place] 0 [facility] Repository PAYERS PAYERS ENCOUNTER GUARANTOR PAYER SUBSCRIBER SOURCE 04/03/2018 RADHA H Primary SUJATHA [place] [id number] W Insurance:MEDICARE LANCEDOB: [facility] PART A [facility] [id number] [facility]STERN Number: [place] [id number]: (330) Date:2018-03-31 [phone] () 04/03/2018 Secondary RADHA H [place] Insurance:WPS LANCEDOB: [facility] [id number] Hospital Number: Repository [id number] Date:[id number] [address]LK: 04/03/2018 Tertiary NOT GIVENUNK [place] Insurance:SELF PAY [facility] Hospital Number: Effective Repository Date:2018-03-31 03/31/2018 RADHA H Primary SUJATHA [place] [id number] W Insurance:MEDICARE LANCEDOB: [facility] [id number] Hospital WESTERN Number: [place] [id number]: (330) Date:2018-02-16 [phone] () 03/31/2018 Secondary RADHA H [place] Insurance:WPS LANCEDOB: [facility] [id number] Hospital Number: Repository [id number] Date:5289-95-84DS [facility] [place] [address]NA: 03/31/2018 Tertiary NOT GIVENUNK [place] Insurance:SELF PAY [facility] Hospital Number: Effective Repository Date:2018-02-16 02/16/2018 RADHA H Primary SUJATHA [place] [id number] W Insurance:MEDICARE LANCEDOB: [facility] [id number] Hospital WESTERN Number: [place] [id number]: [phone]) Date:2018-02-16 [phone] () 02/16/2018 Secondary RADHA H [place] Insurance:WPS LANCEDOB: [facility] [id number] Hospital Number: Repository [id number] Date:1753-95-49RH [address], [place] [address]XS: 02/16/2018 Tertiary NOT GIVENUNK [place] Insurance:SELF PAY [facility] Number: Effective Repository Date:2018-02-16 02/13/2018 RADHA H Primary SUJATHA [place] [id number] W Insurance:MEDICARE LANCEDOB: [facility] [id number] Hospital WESTERN Number: [place] [id number]: (330) Date:2017-08-19 [phone] () 02/13/2018 Secondary RADHA H [place] Insurance:WPS LANCEDOB: [facility] [id number] Hospital Number: Repository [id number] Date:9124-94-94AW [address], [place] [address]MV: 02/13/2018 Tertiary NOT GIVENUNK [place] Insurance:SELF PAY [facility] Hospital Number: Effective Repository Date:2018-02-13 08/19/2017 RADHA H Primary SUJATHA [place] [id number] W Insurance:MEDICARE LANCEDOB: [facility] [id number] Number: [place] [id number]: (330) Date:2017-06-15 [phone] () 08/19/2017 Secondary RADHA H [place] Insurance:WPS LANCEDOB: [facility] [id number] Hospital Number: Repository [id number] Date:6030-78-82HV [address], [place] [address]EI: 08/19/2017 Tertiary NOT GIVENUNK [place] Insurance:SELF PAY [facility] Hospital Number: Effective Repository Date:2017-08-19 08/16/2017 RADHA H Primary SUJATHA [place] [id number] W Insurance:MEDICARE LANCEDOB: [facility] [id number] Number: [place]ository [place] [id number]: (330) Date:2017-08-16 [phone] () 08/16/2017 Secondary RADHA H [place] Insurance:WPS LANCEDOB: [facility] [id number] Hospital Number: Repository [id number] Date:6372-44-78IJ [address], [place] [address]ZM: 08/16/2017 Tertiary NOT GIVENUNK [place] Insurance:SELF PAY [facility] Number: Effective Repository Date:2017-08-16 08/10/2017 RADHA H Primary SUJATHA [place] [id number] W Insurance:MEDICARE LANCEDOB: [place] [id number] Number: Repository [place] [id number]: (330) Date:2017-08-10 () 08/10/2017 Secondary RADHA H [place] Insurance:WPS LANCEDOB: [place] [id number] Hospital Number: Repository [id number] Date:5268-94-82NF [address], [place] [address]XP: 08/10/2017 Tertiary NOT GIVENUNK [place] Insurance:SELF PAY [facility] Number: Effective Repository Date:2017-08-10 08/10/2017 RADHA H Primary SUJATHA [place] [id number] W Insurance:MEDICARE LANCEDOB: [facility] [id number] Center Number: Repository [place] [id number]: (330) Date:2017-08-10 [phone] () 08/10/2017 Secondary RADHA H [place] Insurance:WPS LANCEDOB: [place] [id number] Hospital Number: Repository [id number] Date:3133-77-44QJ [address], [place] [address]WA: 08/10/2017 Tertiary NOT GIVENUNK [place] Insurance:SELF PAY [facility] Number: Effective Repository Date:2017-08-10 07/19/2017 RADHA H Primary SUJATHA [place] [id number] W Insurance:MEDICARE LANCEDOB: [address]03-23[facility] Number: Repository [place] [id number]: (330) Date:2017-07-19791 () 07/19/2017 Secondary RADHA H [place] Insurance:WPS LANCEDOB: [facility] [id number] Hospital Number: Repository [id number] Date:3585-02-89TJ [address], [place] [address]BU: 07/19/2017 Tertiary NOT GIVENUNK [place] Insurance:SELF PAY [facility] Hospital Number: Effective Repository Date:2017-07-19 07/18/2017 Radha H Primary SUJATHA [place] [id number] W Insurance:MEDICARE LANCEDOB: [facility] [id number] [facility] Number: Repository [place], [place] [id number]: (330) Date:2017-04-13 [phone] () 07/18/2017 Secondary Radha H [place] Insurance:WPS LanceDOB: [facility] 1944-03-38ECM Hospital Number: Repository [id number] Date:3341-26-18LM [address], [place] [address]GA: 07/18/2017 Tertiary NOT GIVENUNK [place] Insurance:SELF PAY [facility] Hospital Number: Effective Repository Date:2017-04-13
== END ==
PROVIDERS: Family Provider Family Medicine; PCP Family Medicine; Visit Provider Family Medicine
DX: R92.8 Other abnormal and inconclusive findings on diagnostic imaging of breast (principal)
CPT/HCPCS: 76642

== ENCOUNTER → 2018-08-09 11:35 | Outpatient (CLI) | payer MEDICARE, OTHER, SELFPAY ==
[2018-02-13 11:08] VITALS: BMI 32.5
[2018-08-09 16:24] LABS: T4 Free Direct 1.18 ng/dL (0.76-1.46); Thyroid Stim Hormone (TSH) 4.26 uIU/mL (0.358-3.74)
== END ==
PROVIDERS: Family Provider Family Medicine; PCP Family Medicine; Visit Provider Family Medicine
DX: E03.9 Hypothyroidism, unspecified (principal)
CPT/HCPCS: 36415; 84439; 84443

== ENCOUNTER → 2018-08-14 08:51 | Outpatient (CLI) | payer MEDICARE, OTHER, SELFPAY ==
[2018-08-14 12:47] LABS: AST(SGOT) 30 U/L (15-37); Alanine Aminotransfer ALT/SGPT 44 U/L (13-56); Albumin, Serum 3.6 g/dL (3.2-5.0); Alkaline Phosphatase 122 U/L (45-117); Bilirubin, Direct 0.07 mg/dL (0.00-0.30); Cholesterol 184 mg/dL (200); Globulin 3.9 g/dL (2.2-4.2); High Density Lipoprotein 47 mg/dL; Protein, Total 7.5 g/dL (6.4-8.2); Triglycerides 135 mg/dL; Very Low Density Lipoprotein 27 mg/dL (5-40)
== END ==
PROVIDERS: Family Provider Family Medicine; PCP Family Medicine; Visit Provider Nurse Practitioner Family
DX: E78.00 Pure hypercholesterolemia, unspecified (principal)
CPT/HCPCS: 36415; 80061; 80076

== ENCOUNTER → 2018-09-20 10:27 | Outpatient (CLI) | payer MEDICARE, OTHER, SELFPAY ==
[2018-08-21 13:04] VITALS: BMI 33.1
[2018-09-20 13:07] LABS: Thyroid Stim Hormone (TSH) 1.39 uIU/mL (0.358-3.74)
== END ==
PROVIDERS: Family Provider Family Medicine; PCP Family Medicine; Visit Provider Family Medicine
DX: E03.9 Hypothyroidism, unspecified (principal)
CPT/HCPCS: 36415; 84443

== ENCOUNTER → 2019-03-13 09:31 | Outpatient (CLI) | payer MEDICARE, OTHER, SELFPAY ==
[2018-08-21 13:04] VITALS: BMI 33.1
[2019-03-13 12:20] LABS: Absolute Lymphocyte Count 1.42 X10^3/uL (0.83-4.51); Absolute Neutrophil Count 2.9 X10^3/uL (2.0-7.7); Basophil# 0.08 X10^3/uL; Basophil% 1.6 % (0-1); Eosinophils% 5.8 % (0-5); Hemoglobin 10.5 g/dL (12.0-15.0); Lymphocyte # 1.42 X10^3/ul (4.0); Lymphocyte % 27.7 % (19-41); Mean Corp Hgb Conc 29.2 g/dL (32-36); Mean Corpuscular Hgb 22.2 pg (27.0-32.0); Mean Corpuscular Volume 76.1 fL (81-99); Mean Platelet Vol. 9.9 fl (6.2-12.0); Monocyte# 0.39 X10^3/uL; Monocyte% 7.6 % (0-10); NRBC Flagged by Analyzer 0 % (0-5); Neutrophil # 2.93 X10^3/uL (2.7-7.7); Neutrophil % 57.1 % (47-70); Platelet Count 291 K/mm3 (150-450); RBC Distribution Width CV 18.1 % (11.6-14.6); RBC Distribution Width SD 49.1 fl (35.1-43.9); Red Blood Count 4.73 M/mm3 (4.2-5.4); White Blood Count 5.1 K/mm3 (4.4-11.0)
[2019-03-13 12:26] LABS: Erythrocyte Sedimentation Rate 42 mm/hr (0-30)
[2019-03-13 13:00] LABS: Vitamin D,25 Hydroxy 23.4 ng/mL (29.95-100.01)
[2019-03-13 13:06] LABS: ALB/GLOB Ratio 0.8 RATIO (0.9-2.4); AST(SGOT) 26 U/L (15-37); Alanine Aminotransfer ALT/SGPT 36 U/L (13-56); Albumin, Serum 3.3 g/dL (3.2-5.0); Alkaline Phosphatase 131 U/L (45-117); Anion Gap 9 (5-15); BUN 22 mg/dL (7-18); CRP < 2.90 mg/L (0.0-3.0); Calcium,Total 8.3 mg/dL (8.5-10.1); Chloride 110 mmol/L (98-107); Creatinine, Serum 0.96 mg/dL (0.55-1.02); EST Glomerular Filtration Rate 61 mL/min (>60); Est Glom Filt Rate - Afr Amer 74 mL/min (>60); Glucose 104 mg/dL (74-106); Potassium 4.3 mmol/L (3.5-5.1); Protein, Total 7.3 g/dL (6.4-8.2); Rheumatoid Factor < 10.0 IU/mL (<15); Sodium Level 141 mmol/L (136-145); T4 Free Direct 1.23 ng/dL (0.76-1.46); Thyroid Stim Hormone (TSH) 1.55 uIU/mL (0.358-3.74)
[2019-03-14 08:25] LABS: Ferritin 8 ng/mL (8-252); Iron 29 ug/dL (50-170)
[2019-03-15 11:34] LABS: CCP IgG Antibodies 8 units (0-19)
== END ==
PROVIDERS: Family Provider Family Medicine; PCP Family Medicine; Visit Provider Family Medicine
DX: E03.9 Hypothyroidism, unspecified (principal); I25.10 Atherosclerotic heart disease of native coronary artery without angina pectoris; E78.00 Pure hypercholesterolemia, unspecified; F32.9 Major depressive disorder, single episode, unspecified; M06.4 Inflammatory polyarthropathy; R53.83 Other fatigue; D50.9 Iron deficiency anemia, unspecified; E55.9 Vitamin D deficiency, unspecified
CPT/HCPCS: 36415; 80053; 82306; 82728; 83540; 84439; 84443; 85025; 85652; 86140; 86200; 86431

== ENCOUNTER → 2019-03-16 13:10 | Outpatient (CLI) | payer MEDICARE, OTHER, SELFPAY ==
[2018-08-21 13:04] VITALS: BMI 33.1
[2019-03-16 13:15] LABS: Bacteria 0 SEEN /hpf (None Seen); Mucous, Urine 0 SEEN /hpf (<or=2+); Red Blood Cells-Urine 0 SEEN /hpf (0-5); White Blood Cells 0 SEEN /hpf (0-5)
[2019-03-16 16:01] LABS: Color, Urine Yellow (Yellow); Glucose, Dipstick Normal (Normal); Ketone-Dipstick Negative (Negative); Leukocyte Esterase-Dipstick Negative /ul (Negative); Nitrite-Dipstick Negative (Negative); Occult Blood-Urine Negative /ul (Negative); Protein-Dipstick Negative (Negative); Specific Gravity, Urine 1.005 (1.002-1.030); Urine Bilirubin Dipstick Negative (Negative); Urine Clarity Clear (Clear); Urine Urobilinogen Normal (Normal)
[2019-03-16 16:16] LABS: Squamous Epithelial Cells - UA 0-5 SEEN /hpf (5-10)
== END ==
PROVIDERS: Family Provider Family Medicine; PCP Family Medicine; Visit Provider Family Medicine
DX: D64.9 Anemia, unspecified (principal)
CPT/HCPCS: 81001

== ENCOUNTER → 2019-04-19 11:10 | Outpatient (CLI) | payer MEDICARE, OTHER, SELFPAY ==
[2018-08-21 13:04] VITALS: BMI 33.1
--- NOTE | 2019-04-19 11:12 | BI_ITS ---
MAMMOGRAPHY - BILATERAL SCREENING REASON FOR EXAM: Female, 73 years old. Routine annual screening examination. PERTINENT HISTORY: Mother with breast cancer. Prior ultrasound of the right breast demonstrated breast cysts. TECHNIQUE: Digital bilateral breast casey (3D mammographic acquisition) in the CC and MLO projections. 2-D mediolateral oblique (MLO) and craniocaudad (CC) views of both breasts were obtained. CAD: Full Field Digital Mammography with Computer Added Detection was performed. COMPARISON: Comparison is made with prior mammogram dated #32,018 and December 22, 2016. FINDINGS: Breast Composition: There are scattered areas of fibroglandular density. There are no dominant masses or suspicious calcifications. Stable 1 cm nodular density in the deep upper lateral aspect of the right breast. This was demonstrated to be a cyst on prior sonogram. Stable appearance of the small bilateral axillary lymph nodes. No other significant abnormalities are identified. There has been no significant change since the prior study. BI/SCREEN MAMM (CAD) W/CASEY BILAT IMPRESSION: Stable bilateral screening mammogram. Yearly follow-up mammogram recommended. (A) ASSESSMENT CATEGORY: BIRADS Category 2: Benign. A letter regarding these results will be sent to the patient by the facility within 30 days. Approximately 10% of breast cancers are not detected by mammography. A normal mammogram should not delay biopsy of a clinically suspicious abnormality. [id number] Electronically Signed: Jarad Max, at 12:59 EST , Service support ,
== END ==
PROVIDERS: Family Provider Family Medicine; PCP Family Medicine; Referring Provider Family Medicine; Visit Provider Family Medicine
DX: Z12.31 Encounter for screening mammogram for malignant neoplasm of breast (principal)
CPT/HCPCS: 77063; 77067

== ENCOUNTER → 2020-05-22 11:19 | Outpatient (CLI) | payer MEDICARE, OTHER, SELFPAY ==
[2018-08-21 13:04] VITALS: BMI 33.1
--- NOTE | 2020-05-22 11:23 | BI_ITS ---
MAMMOGRAPHY - BILATERAL SCREENING REASON FOR EXAM: Female, 74 years old. Routine annual screening examination. PERTINENT HISTORY: Mother with breast cancer. TECHNIQUE: Digital bilateral breast casey (3D mammographic acquisition) in the CC and MLO projections. 2-D mediolateral oblique (MLO) and craniocaudad (CC) views of both breasts were obtained. CAD: Full Field Digital Mammography with Computer Added Detection was performed. COMPARISON: Comparison is made with prior examination dated 04/19/2019 and 03/31/2018. FINDINGS: Breast Composition: There are scattered areas of fibroglandular density. There are no dominant masses or suspicious calcifications. Stable 1 cm nodular density in the deep upper lateral aspect of the right breast. No other significant abnormalities are identified. There has been no significant change since the prior study. BI/SCRN MAMM (CAD)W/CASEY BILAT IMPRESSION: Stable bilateral screening mammogram. Yearly follow-up mammogram recommended. (A) ASSESSMENT CATEGORY: BIRADS Category 2: Benign. A letter regarding these results will be sent to the patient by the facility within 30 days. Approximately 10% of breast cancers are not detected by mammography. A normal mammogram should not delay biopsy of a clinically suspicious abnormality. [id number] Electronically Signed: Jarad Max MD at 12:35 EST , Service support ,
== END ==
PROVIDERS: PCP Family Medicine; Referring Provider Family Medicine; Visit Provider Family Medicine
DX: Z12.31 Encounter for screening mammogram for malignant neoplasm of breast (principal)
CPT/HCPCS: 77063; 77067

== ENCOUNTER → 2020-08-13 11:22 | Outpatient (CLI) | payer MEDICARE, OTHER, SELFPAY ==
[2018-08-21 13:04] VITALS: BMI 33.1
[2020-08-13 15:11] LABS: Absolute Lymphocyte Count 1.48 X10^3/uL (0.83-4.51); Absolute Neutrophil Count 3.2 X10^3/uL (2.0-7.7); Basophil# 0.08 X10^3/uL; Basophil% 1.4 % (0-1); Eosinophils% 5.3 % (0-5); Hematocrit 44.1 % (37-47); Lymphocyte # 1.48 X10^3/ul (0.83-4.51); Lymphocyte % 26.1 % (19-41); Mean Corp Hgb Conc 31.7 g/dL (32-36); Mean Corpuscular Hgb 29.2 pg (27.0-32.0); Mean Corpuscular Volume 91.9 fL (81-99); Mean Platelet Vol. 10.3 fl (6.2-12.0); Monocyte# 0.55 X10^3/uL; Monocyte% 9.7 % (0-10); NRBC Flagged by Analyzer 0 % (0-5); Neutrophil # 3.24 X10^3/uL (2.7-7.7); Neutrophil % 57.3 % (47-70); Platelet Count 273 K/mm3 (150-450); RBC Distribution Width CV 12.7 % (11.6-14.6); RBC Distribution Width SD 42.9 fl (35.1-43.9); White Blood Count 5.7 K/mm3 (4.4-11.0)
[2020-08-13 15:30] LABS: Vitamin D,25 Hydroxy 27.3 ng/mL
[2020-08-13 15:40] LABS: ALB/GLOB Ratio 0.9 RATIO (0.9-2.4); AST(SGOT) 24 U/L (15-37); Alanine Aminotransfer ALT/SGPT 37 U/L (13-56); Albumin, Serum 3.5 g/dL (3.2-5.0); Alkaline Phosphatase 124 U/L (45-117); Anion Gap 3 (5-15); BUN 18 mg/dL (7-18); BUN/Creat Ratio 21.7 RATIO (10-20); Calcium,Total 8.6 mg/dL (8.5-10.1); Chloride 110 mmol/L (98-107); Cholesterol 153 mg/dL (200); Creatinine, Serum 0.83 mg/dL (0.55-1.02); EST Glomerular Filtration Rate 72 mL/min (>60); Est Glom Filt Rate - Afr Amer 87 mL/min (>60); Ferritin 10 ng/mL (8-252); Globulin 3.7 g/dL (2.2-4.2); Glucose 102 mg/dL (74-106); High Density Lipoprotein 52 mg/dL; Iron 75 ug/dL (50-170); Potassium 4.3 mmol/L (3.5-5.1); Protein, Total 7.2 g/dL (6.4-8.2); Sodium Level 139 mmol/L (136-145); T4 Free Direct 1.27 ng/dL (0.76-1.46); Thyroid Stim Hormone (TSH) 1.31 uIU/mL (0.358-3.74); Triglycerides 95 mg/dL; Very Low Density Lipoprotein 19 mg/dL (5-40)
== END ==
PROVIDERS: PCP Family Medicine; Referring Provider Family Medicine; Visit Provider Family Medicine
DX: E78.5 Hyperlipidemia, unspecified (principal); E03.9 Hypothyroidism, unspecified; D50.9 Iron deficiency anemia, unspecified; I10 Essential (primary) hypertension; E55.9 Vitamin D deficiency, unspecified
CPT/HCPCS: 36415; 80053; 80061; 82306; 82728; 83540; 84439; 84443; 85025

== ENCOUNTER 2021-03-24 18:39 | Observation (INO) | payer MEDICARE, OTHER, SELFPAY ==
[2021-03-24 18:40] VITALS: BP 159/67; PULSE 71; RESP 17; TEMP 37; O2SAT 100; BMI 32.5
--- NOTE | 2021-03-24 18:50 | ED.RN ---
pt c/o new onset of confusion that started about 1.5 hours [employer]OD [employer]. Pt unsure of why she is at the hospital. Pts , David is at bedside. David states she has been more confused lately. She was sitting at the bed with her pants off crying hysterically. Pt states she does not remember any of this.
--- NOTE | 2021-03-24 18:53 | ED.RN ---
DR. CAMPBELL NOTIFIED OF PT SX AT 1850. PT HAVING DIFFICULTY RECALLING THE LAST TWO HOURS. NIH 0. BG 131.
--- NOTE | 2021-03-24 19:10 | CT_ITS ---
STUDY: CT BRAIN WITHOUT CONTRAST REASON FOR EXAM: Female, 75 years old. Confusion. RADIATION DOSAGE (If Supplied By Facility): CTDIvol = ( 44.99 ) mGy, DLP = ( 812.98 ) mGycm TECHNIQUE: Transaxial CT imaging of the brain was performed without administration of intravenous contrast material. Individualized dose optimization techniques were used for this CT. COMPARISON: No relevant priors. FINDINGS: Normal soft tissue structures. Normal calvarium. Normal size ventricles and extra-axial spaces for the patient''s age. There is mild low attenuation in the right matter of the frontoparietal regions. This extends downward into the bilateral basal ganglia. There is also a low-attenuation area in the right thalamus. These findings suggest subacute infarcts. There is no associated mass effect or midline shift. There is no sulcal effacement. Normal brainstem. Normal cerebellum. There is no intracranial hemorrhage. There are no findings of an acute ischemic infarction. Normal visualized paranasal sinuses. CT/Brain/Head without Contrast IMPRESSION: Questionable remote versus subacute infarcts in the basal ganglia and white matter. Correlation with MRI is recommended. N.B. : The above Results were Read Back by Parrish Dorsey DO to Zane Castillo DO, and understanding confirmed on 03/24/2021 20:16:15 (ET). Electronically Signed: Parrish Dorsey DO at 20:17 EST Tel [phone], Service support ,
--- NOTE | 2021-03-24 19:13 | EKG12_ITS ---
Test Reason : CONFUSION Blood Pressure : / mmHG Vent. Rate : 065 BPM Atrial Rate : 065 BPM P-R Int : 132 ms QRS Dur : 088 ms QT Int : 446 ms P-R-T Axes : 053 014 093 degrees QTc Int : 463 ms Normal sinus rhythm Normal ECG Confirmed by PATIENCE HANNON, JNOES ([id number]), newspaper editor RYANN GARY ([id number]) on 03/27/2021 6:59:07 AM Referred By: RITO Confirmed By:JONES MORIN MD
--- NOTE | 2021-03-24 19:15 | EX.ED.DYSGE1 ---
HPI History of Present Illness Chief Complaint: Hypertension Informant: patient and spouse/S.O. Onset/Context/Timing Onset: Today Context: Sudden Onset Timing: Intermittent Worsened by: Nothing Relieved by: Nothing Narrative Narrative: Patient presents with confusion that began tonight. states that patient has had some nausea earlier today. reports that they were planning on going out to dinner. On the way to the restaurant, the patient felt nauseated and had an episode of vomiting. states he took her back home and went to go get some food. Patient states that when he came back patient was more confused and sitting in a chair with her pants undone. Patient does not remember any of this. Patient knows that she is confused. Patient knows that she is in the emergency department and is oriented to person place and time. Patient denies any headaches. states patient was recently started on pantoprazole instead of omeprazole. Patient denies any recent fevers or chills. Patient admits to mild headache. Patient denies any paresthesias or weakness. [facility] Medical History Abnormal stress test Atherosclerosis of [place] coronary artery of [place] heart without angina pectoris Bradycardia, sinus Dizziness and giddiness Encounter for long-term current use of high risk medication Essential (primary) hypertension Nonrheumatic mitral valve insufficiency Palpitations Pure hypercholesterolemia Home Medications naproxen sodium 220 mg PO DAILY PRN PRN 09/17/13 [History Last Taken Unknown] aspirin 81 mg PO DAILY@0800 10/15/14 [History Last Taken 10/15/14 81 mg] atorvastatin 80 mg tablet 80 mg PO QDAY 08/16/17 [History Last Taken Unknown] clopidogrel 75 mg tablet 75 mg PO QDAY 08/16/17 [History Last Taken Unknown] lisinopril 5 mg tablet 5 mg PO QDAY 08/16/17 [History Last Taken Unknown] omeprazole 20 mg capsule,delayed release 20 mg PO BID cap 08/19/17 [History Last Taken Unknown] fluoxetine 20 mg tablet 60 mg PO DAILY tab 08/21/18 [History Last Taken Unknown] levothyroxine 125 mcg tablet 125 mcg PO DAILY 08/21/18 [History Last Taken Unknown] metoprolol succinate 50 mg tablet,extended release 24 hr 50 mg PO DAILY 08/21/18 [History Last Taken Unknown] vitamins A,C,P-rzni-lcjhcs 14,320 unit-226 mg-200 unit capsule 1 cap PO DAILY cap 08/21/18 [History Last Taken Unknown] Allergy/AdvReac Type Severity Reaction Status Date / Time Penicillins Allergy Unknown Hives Verified 08/21/18 13:04 Family History Mother Breast cancer Hypertension Father Cancer lung Brother CAD (coronary artery disease) Myocardial infarction Surgical History H/O percutaneous transluminal coronary angioplasty History of carpal tunnel surgery History of herniated intervertebral disc History of tonsillectomy Social History (Updated 03/24/21 @ 23:24 by Maria C Amanda) household members: spouse housing: house current occupational status: retired pets and animals: Yes (dog) leisure activities: reading Smoking Status: Never smoker alcohol intake: current alcohol intake frequency: a few times a month Alcohol type: wine substance use type: does not use caffeine: Yes Type: coffee Number of servings: 2 what type of physical activity do you participate in: none seatbelt use: always do you feel safe at home: Yes ROS ROS ED Constitutional Constitutional ED: Denies chills or fever(s) Eyes Eyes: Denies blurry vision or change in vision ENT ENT ED: Denies rhinorrhea or sore throat Cardiovascular Cardiovascular: Denies chest pain or palpitations Respiratory/Chest Respiratory/Chest: Denies cough or dyspnea Gastrointestinal Gastrointestinal: Reports nausea and vomiting Genitourinary Genitourinary ED: Denies dysuria or hematuria Musculoskeletal Musculoskeletal: Denies back pain or neck pain Integumentary Reports rash; Denies abscess Neurologic Neurologic: Reports headache(s); Denies weakness Allergic/Immunologic Allergic/Immunologic ED: Denies mouth swelling or urticaria EXAM Physical Exam Const Vital Signs: 03/24/21 18:40 03/24/21 20:32 Temperature 98.6 F Temperature Source Oral Pulse Rate 71 85 Respiratory Rate 17 18 Blood Pressure 159/67 H 143/70 H Blood Pressure Mean 97 94 Pulse Ox 100 97 Oxygen Delivery Method Room Air Room Air Positive well nourished and well developed General Appearance ED: well developed HEENT Reports moist mucous membranes Neck supple and no JVD Resp normal respiratory effort and clear to auscultation bilaterally Cardio regular rate, regular rhythm and no murmurs GI normal to inspection, nondistended, normoactive bowel sounds and non-tender Palpation: soft Extremity normal to inspection General Extremety ED: Negative for edema or tenderness General Extremity: Negative for edema Neuro oriented x3, CN's II-XII intact bilaterally and no sensory deficits noted Sensorium / Orientation: awake and alert Speech: speech normal Motor Exam: strength 5/5 throughout, no pronator drift and no tremor Psych mental status grossly normal Skin no rashes or lesions noted MDM MDM MDM Narrative Medical decision making narrative: CBC and comprehensive metabolic profile were obtained and were essentially within normal limits. Lactate was normal. Urinalysis does not show any evidence of urinary tract infection. EKG was obtained. On my interpretation, there is a normal sinus rhythm with a rate of 65. The NC interval, QRS interval, QTC intervals were normal. [place] was normal. There are no acute ST or T wave changes. CT scan of the brain was obtained. There is questionable remote versus subacute infarcts in the basal ganglia white matter. This was interpreted by the radiologist and reviewed by myself. Portable 1 view chest x-ray was obtained. On my interpretation, lung henley are clear. There is normal cardiac silhouette. Bony thorax is normal. There is no acute process noted. Radiologist also interpreted the x-ray and agrees. Case was discussed with the hospitalist. He will admit the patient for observation. Patient and family understood and were agreeable with the plan. All questions were answered. Lab Data Attestation: I reviewed the patient's lab results. Labs: Laboratory Results - last 24 hr 03/24/21 03/24/21 03/24/21 18:50 18:50 19:21 WBC 10.8 RBC 5.13 Hgb 14.1 Hct 43.1 MCV 84.0 MCH 27.5 MCHC 32.7 RDW Std Deviation 41.4 RDW Coeff of [place] 13.4 Plt Count 315 MPV 9.6 Immature Gran % (Auto) 0.600 Neut % (Auto) 73.9 H Lymph % (Auto) 15.6 L [place] % (Auto) 5.2 Eos % (Auto) 4.2 Baso % (Auto) 0.5 Absolute Neuts (auto) 8.0 H Absolute Lymphs (auto) 1.68 Nucleated RBC % 0 Sodium 136 Potassium 3.6 Chloride 105 Carbon Dioxide 22.0 Anion Gap 9 BUN 19 H Creatinine 0.91 Estim Creat Clear Calc 46.84 Est GFR (MDRD) Af Amer 77 Est GFR (MDRD) Non-Af 64 BUN/Creatinine Ratio 20.8 H Glucose 118 H Lactic Acid 1.6 Calcium 8.7 Total Bilirubin 0.50 AST 18 ALT 26 Alkaline Phosphatase 118 H Troponin I High Sens 8 Total Protein 7.4 Albumin 3.4 Globulin 4.0 Albumin/Globulin Ratio 0.8 L Urine Color Urine Clarity Urine pH Ur Specific [place] Urine Protein Urine Glucose (UA) Urine Ketones Urine Occult Blood Urine Nitrite Urine Bilirubin Urine Urobilinogen Ur Leukocyte Esterase Urine RBC Urine WBC Ur Squamous Epith Cells Urine Bacteria Urine Mucus 03/24/21 20:10 WBC RBC Hgb Hct MCV MCH MCHC RDW Std Deviation RDW Coeff of [place] Plt Count MPV Immature Gran % (Auto) Neut % (Auto) Lymph % (Auto) [place] % (Auto) Eos % (Auto) Baso % (Auto) Absolute Neuts (auto) Absolute Lymphs (auto) Nucleated RBC % Sodium Potassium Chloride Carbon Dioxide Anion Gap BUN Creatinine Estim Creat Clear Calc Est GFR (MDRD) Af Amer Est GFR (MDRD) Non-Af BUN/Creatinine Ratio Glucose Lactic Acid Calcium Total Bilirubin AST ALT Alkaline Phosphatase Troponin I High Sens Total Protein Albumin Globulin Albumin/Globulin Ratio Urine Color Yellow Urine Clarity Clear Urine pH 6.0 Ur Specific [place] 1.020 Urine Protein 15 H Urine Glucose (UA) Normal Urine Ketones 5 H Urine Occult Blood Negative Urine Nitrite Negative Urine Bilirubin Negative Urine Urobilinogen Normal Ur Leukocyte Esterase Negative Urine RBC 0 SEEN Urine WBC 0 SEEN Ur Squamous Epith Cells 0-5 SEEN Urine Bacteria 0 SEEN Urine Mucus 0 SEEN Radiography Chest X-Ray - ED: 1 View, Read by ED Physician, Read by Radiologist and Normal Diagnostic Testing: Clinical Impression(s) from Imaging Studies Brain CT 03/24/21 19:10 IMPRESSION: Questionable remote versus subacute infarcts in the basal ganglia and white matter. Correlation with MRI is recommended. N.B. : The above Results were Read Back by Parrish Dorsey DO to Zane Castillo DO, and understanding confirmed on 03/24/2021 20:16:15 (ET). Electronically Signed: Parrish Dorsey DO at 20:17 EST Tel [phone], Service support , ADDENDUM: 03/24/212023 IMPRESSION: Questionable remote versus subacute infarcts in the basal ganglia and white matter. Correlation with MRI is recommended. N.B. : The above Results were Read Back by Parrish Dorsey DO to Zane Castillo DO, and understanding confirmed on 03/24/2021 20:16:15 (ET). Electronically Signed: Parrish Dorsey DO at 20:17 EST Tel [phone], Service support , Chest X-Ray 03/24/21 19:39 IMPRESSION: No acute cardiopulmonary disease or major interval change. Electronically Signed: Parrish Dorsey DO at 20:18 EST Tel [phone], Service support , EKG Initial EKG: Attestation: I personally reviewed and interpreted this EKG as follows: Interpretation: Sinus Rhythm (65) and No Acute Injury Pattern Treatment and Re-Evaluation Vital Sign Attestation:: Vital signs were reviewed prior to admission. They are stable. Discharge Plan Dx/Rx/DC Orders Clinical Impression: Confusion Disposition Disposition: Acute Care Hospital [facility] Discharge Date/Time: 03/24/21 22:52
[2021-03-24 19:32] LABS: Absolute Lymphocyte Count 1.68 X10^3/uL (0.83-4.51); Basophil# 0.05 X10^3/uL; Basophil% 0.5 % (0-1); Eosinophil# 0.45 X10^3/uL; Eosinophils% 4.2 % (0-5); Hematocrit 43.1 % (37-47); Hemoglobin 14.1 g/dL (12.0-15.0); Lymphocyte # 1.68 X10^3/ul (0.83-4.51); Lymphocyte % 15.6 % (19-41); Mean Corp Hgb Conc 32.7 g/dL (32-36); Mean Corpuscular Hgb 27.5 pg (27.0-32.0); Mean Platelet Vol. 9.6 fl (6.2-12.0); Monocyte# 0.56 X10^3/uL; Monocyte% 5.2 % (0-10); NRBC Flagged by Analyzer 0 % (0-5); Neutrophil # 7.95 X10^3/uL (2.7-7.7); Neutrophil % 73.9 % (47-70); Platelet Count 315 K/mm3 (150-450); RBC Distribution Width CV 13.4 % (11.6-14.6); RBC Distribution Width SD 41.4 fl (35.1-43.9); Red Blood Count 5.13 M/mm3 (4.2-5.4); White Blood Count 10.8 K/mm3 (4.4-11.0)
--- NOTE | 2021-03-24 19:39 | RAD_ITS ---
STUDY: X-RAY CHEST REASON FOR EXAM: Female, 75 years old. Cough. TECHNIQUE: Single AP portable view of the chest. COMPARISON: 10/14/2014. FINDINGS: The lungs are clear and expanded. There is no demonstrated pleural abnormality. Normal size heart. Normal mediastinum and mukul. Normal visualized pulmonary arteries. Normal visualized aortic arch and descending thoracic aorta. There are diffuse degenerative changes of the visualized thoracic spine. Normal visualized ribs, clavicles, and shoulders. There is no demonstrated abnormality of the visualized soft tissue structures of the upper abdomen. RAD/Chest 1 View (Portable) IMPRESSION: No acute cardiopulmonary disease or major interval change. Electronically Signed: Parrish Dorsey DO at 20:18 EST Tel [phone], Service support ,
[2021-03-24 19:44] LABS: ALB/GLOB Ratio 0.8 RATIO (0.9-2.4); AST(SGOT) 18 U/L (15-37); Alanine Aminotransfer ALT/SGPT 26 U/L (13-56); Albumin, Serum 3.4 g/dL (3.2-5.0); Alkaline Phosphatase 118 U/L (45-117); Anion Gap 9 (5-15); BUN 19 mg/dL (7-18); BUN/Creat Ratio 20.8 RATIO (10-20); Calcium,Total 8.7 mg/dL (8.5-10.1); Chloride 105 mmol/L (98-107); Creatinine, Serum 0.91 mg/dL (0.55-1.02); EST Glomerular Filtration Rate 64 mL/min (>60); Est Glom Filt Rate - Afr Amer 77 mL/min (>60); Estimated Creatinine Clearance 46.84 ml/min; Glucose 118 mg/dL (74-106); Potassium 3.6 mmol/L (3.5-5.1); Protein, Total 7.4 g/dL (6.4-8.2); Sodium Level 136 mmol/L (136-145); Troponin-I HS 8 pg/mL (3.0-54.0)
[2021-03-24 20:13] LABS: Lactic Acid 1.6 mmol/L (0.4-1.9)
[2021-03-24 20:21] LABS: Bacteria 0 SEEN /hpf (None Seen); Mucous, Urine 0 SEEN /hpf (<or=2+); Red Blood Cells-Urine 0 SEEN /hpf (0-5); White Blood Cells 0 SEEN /hpf (0-5)
[2021-03-24 20:24] LABS: Color, Urine Yellow (Yellow); Glucose, Dipstick Normal (Normal); Ketone-Dipstick 5 mg/dl (Negative); Leukocyte Esterase-Dipstick Negative /ul (Negative); Nitrite-Dipstick Negative (Negative); Occult Blood-Urine Negative /ul (Negative); Protein-Dipstick 15 mg/dl (Negative); Urine Bilirubin Dipstick Negative (Negative); Urine Clarity Clear (Clear); Urine Urobilinogen Normal (Normal)
[2021-03-24 20:29] LABS: Squamous Epithelial Cells - UA 0-5 SEEN /hpf (5-10)
[2021-03-24 20:32] VITALS: BP 143/70; PULSE 85; RESP 18; O2SAT 97
--- NOTE | 2021-03-24 22:22 | PCM.HP.STD ---
HPI - General General Date of Admission: 03/24/21 Date of Service: 03/24/21 HPI Narrative SUJATHA THORNTON, is a 75 F with a significant history of hypertension; CAD status post stent who presents to the emergency department with persistent altered mental status on the same day of presentation. Her altered mental status resolved however patient remains partly amnestic to events that happened on the same day of presentation. Reportedly patient and her was going to eat. Patient got nauseous on her way and vomited. Her and patient returned home without going to eat. Her went back to get some burgers on his own. When her returned patient was still nauseous and confused. [facility], [facility] Medical History Abnormal stress test Atherosclerosis of [place] coronary artery of [place] heart without angina pectoris Bradycardia, sinus Dizziness and giddiness Encounter for long-term current use of high risk medication Essential (primary) hypertension Nonrheumatic mitral valve insufficiency Palpitations Pure hypercholesterolemia Home Medications naproxen sodium 220 mg PO DAILY PRN PRN 09/17/13 [History Last Taken Unknown] aspirin 81 mg PO DAILY@0800 10/15/14 [History Last Taken 10/15/14 81 mg] atorvastatin 80 mg tablet 80 mg PO QDAY 08/16/17 [History Last Taken Unknown] clopidogrel 75 mg tablet 75 mg PO QDAY 08/16/17 [History Last Taken Unknown] lisinopril 5 mg tablet 5 mg PO QDAY 08/16/17 [History Last Taken Unknown] fluoxetine 20 mg tablet 60 mg PO DAILY tab 08/21/18 [History Last Taken Unknown] levothyroxine 125 mcg tablet 125 mcg PO DAILY 08/21/18 [History Last Taken Unknown] metoprolol succinate 50 mg tablet,extended release 24 hr 50 mg PO DAILY 08/21/18 [History Last Taken Unknown] vitamins A,C,F-lhva-byvvnw 14,320 unit-226 mg-200 unit capsule 1 cap PO DAILY cap 08/21/18 [History Last Taken Unknown] Allergy/AdvReac Type Severity Reaction Status Date / Time Penicillins Allergy Unknown Hives Verified 08/21/18 13:04 Family History Mother Breast cancer Hypertension Father Cancer lung Brother CAD (coronary artery disease) Myocardial infarction Surgical History H/O percutaneous transluminal coronary angioplasty History of carpal tunnel surgery History of herniated intervertebral disc History of tonsillectomy Social History household members: spouse housing: house current occupational status: retired pets and animals: Yes (dog) leisure activities: reading Smoking Status: Never smoker alcohol intake: current alcohol intake frequency: a few times a month Alcohol type: wine substance use type: does not use caffeine: Yes Type: coffee Number of servings: 2 what type of physical activity do you participate in: none seatbelt use: always do you feel safe at home: Yes ROS ROS Narrative Constitutional: Denies fever, chills, fatigue, anorexia and change in weight Eyes: Denies blurry vision, change in eye color, change in vision, discharge from eye(s), double vision, erythema, eye pain, loss of vision or other HEENT: Denies abnormal hearing, dysphagia, ear pain, epistaxis, headache(s), hearing loss, nasal congestion, nasal discharge, post nasal drip, sinus pressure, sore throat or other Cardiovascular: Denies chest pain or palpitations. Denies dyspnea on exertion, orthopnea and paroxysmal nocturnal dyspnea Respiratory/Chest: Denies cough, excessive phlegm production, shortness of breath with exertion and wheezing Gastrointestinal: Reports nausea vomiting and loose stools. Denies abdominal pain, coffee ground emesis, constipation,hematemesis, hematochezia, melena, or other Genitourinary: Denies burning urination, difficulty urinating, dysuria, hematuria, nocturia, urinary frequency, urinary hesitancy, urinary incontinence, urinary urgency or other Musculoskeletal: Denies arthralgias, back pain, joint pain, joint stiffness, joint swelling, myalgias, neck pain or other Neurologic: Reports confusion. Denies abnormal gait, abnormal speech, disequilibrium, dizziness, focal weakness, headache(s), numbness, paresthesias, seizure-like activity, seizures, syncope, tingling, tremor(s) or other Psychiatric: Denies anxiety, depression, homicidal ideation, suicidal ideation or other Endocrinology: Denies change in body appearance, cold intolerance, excessive sweating, heat intolerance, polydipsia, polyuria or other Hematologic/Lymphatic: Denies anemia, easy bleeding, easy bruising, lymphadenopathy or other Integumentary: Denies rashes Allergic/Immunologic: Denies rhinitis, hives, eczema, asthma or other Vital Signs Vital Signs Vital Signs: 03/24/21 18:40 03/24/21 20:32 Temperature 98.6 F Temperature Source Oral Pulse Rate 71 85 Respiratory Rate 17 18 Blood Pressure 159/67 H 143/70 H Blood Pressure Mean 97 94 Pulse Ox 100 97 Oxygen Delivery Method Room Air Room Air Weight Weight: 86.183 kg Body Mass Index (BMI) 32.5 Physical Exam Narrative Physical exam: General: Well-nourished, well-developed. Head: Normocephalic, atraumatic, no tenderness Eyes: PERRLA, EOMI ENT, no trauma, moist mucous membranes, no rhinorrhea Neck: Nontender, full range of motion, no spinal tenderness, deformities, step-off CVS: Regular rate and rhythm. S1-S2 present. No murmur, gallop or rub. Respiratory : clear to auscultation bilaterally, chest wall nontender, no wheezing Abdomen: Soft, nontender, nondistended, normal bowel sounds, no masses : Deferred Back: Nontender, no CVA tenderness, no midline spinal tenderness, deformities, step-offs Extremities: Nontender full range of motion, no trauma Skin: Normal color, no trauma, abrasions Neuro: Alert, oriented, cranial nerves II through XII grossly intact. No dysmetria. Deep tendon reflexes in biceps and knee not hyperreflexia. Psychiatry: Normal mood. Normal affect. Not depressed. Not anxious. Results Lab / Micro Data Result Diagrams: 03/24/21 18:50 03/24/21 18:50 Labs: Laboratory Results - last 24 hr 03/24/21 18:50: WBC 10.8, RBC 5.13, Hgb 14.1, Hct 43.1, MCV 84.0, MCH 27.5, MCHC 32.7, RDW Std Deviation 41.4, RDW Coeff of [place] 13.4, Plt Count 315, MPV 9.6, Immature Gran % (Auto) 0.600, Neut % (Auto) 73.9 H, Lymph % (Auto) 15.6 L, [place] % (Auto) 5.2, Eos % (Auto) 4.2, Baso % (Auto) 0.5, Absolute Neuts (auto) 8.0 H, Absolute Lymphs (auto) 1.68, Nucleated RBC % 0 03/24/21 18:50: Sodium 136, Potassium 3.6, Chloride 105, Carbon Dioxide 22.0, Anion Gap 9, BUN 19 H, Creatinine 0.91, Estim Creat Clear Calc 46.84, Est GFR (MDRD) Af Amer 77, Est GFR (MDRD) Non-Af 64, BUN/Creatinine Ratio 20.8 H, Glucose 118 H, Calcium 8.7, Total Bilirubin 0.50, AST 18, ALT 26, Alkaline Phosphatase 118 H, Troponin I High Sens 8, Total Protein 7.4, Albumin 3.4, Globulin 4.0, Albumin/Globulin Ratio 0.8 L 03/24/21 19:21: Lactic Acid 1.6 03/24/21 20:10: Urine Color Yellow, Urine Clarity Clear, Urine pH 6.0, Ur Specific [place] 1.020, Urine Protein 15 H, Urine Glucose (UA) Normal, Urine Ketones 5 H, Urine Occult Blood Negative, Urine Nitrite Negative, Urine Bilirubin Negative, Urine Urobilinogen Normal, Ur Leukocyte Esterase Negative, Urine RBC 0 SEEN, Urine WBC 0 SEEN, Ur Squamous Epith Cells 0-5 SEEN, Urine Bacteria 0 SEEN, Urine Mucus 0 SEEN Radiology Impression Brain CT 03/24/21 19:10 IMPRESSION: Questionable remote versus subacute infarcts in the basal ganglia and white matter. Correlation with MRI is recommended. N.B. : The above Results were Read Back by Parrish Dorsey DO to Zane Castillo DO, and understanding confirmed on 03/24/2021 20:16:15 (ET). Electronically Signed: Parrish Dorsey DO at 20:17 EST Tel [phone], Service support , ADDENDUM: 03/24/212023 IMPRESSION: Questionable remote versus subacute infarcts in the basal ganglia and white matter. Correlation with MRI is recommended. N.B. : The above Results were Read Back by Parrish Dorsey DO to Zane Castillo DO, and understanding confirmed on 03/24/2021 20:16:15 (ET). Electronically Signed: Parrish Dorsey DO at 20:17 EST Tel [phone], Service support , Chest X-Ray 03/24/21 19:39 IMPRESSION: No acute cardiopulmonary disease or major interval change. Electronically Signed: Parrish Dorsey DO at 20:18 EST Tel [phone], Service support , Assessment & Plan Assessment/Plan (1) Acute encephalopathy: (2) CVA (cerebral vascular accident): QUALIFIERS: CVA mechanism: unspecified Qualified Code(s): I63.9 - Cerebral infarction, unspecified PLAN: Acute metabolic Encephalopathy Etiology unclear. Cannot rule out acute posterior circulation stroke in the setting of a questionable remote versus subacute infarct in the basal ganglia and white matter. Chest x-ray independently interpreted showed no acute cardiopulmonary process and I agree with radiologist interpretation. Brain CT was independently interpreted and I agree with radiologist interpretation above. Serial NIH is ordered. Get MRI and MRA brain. Check echocardiogram. On home aspirin; high intensity statin and Plavix; continued. Permissive hypertension per stroke protocol ordered. Hold home blood pressure medications. CAD status post stent ASA; Plavix and high intensity statin continued Depression/anxiety Fluoxetine continued Hypothyroidism Synthroid continued. In the setting of acute encephalopathy TSH ordered. DVT prophylaxis SCD ordered. Charges/Coding Visit Charges OBSV E&M: 22282 Initial observation care L3
[2021-03-24 22:49] VITALS: BP 99/77; PULSE 67; RESP 13; TEMP 36.3; O2SAT 97
[2021-03-24 23:04] VITALS: BMI 33.5
--- NOTE | 2021-03-24 23:04 | ECHOCS_ITS ---
Reason For Study: TIA/CVA Procedure This was a 2D Doppler, Color Flow transthoracic echocardiogram. The study was technically difficult. Contrast injection was performed. Exam performed portable in patient room. Left Ventricle Normal LV size. Mild concentric left ventricular hypertrophy. Left ventricular systolic function is normal. The estimated ejection fraction is 60 %. Stage 1 diastolic dysfunction. No regional wall motion abnormalities noted. Right Ventricle Normal RV size. Normal systolic function. Atria Normal left atrium. Normal right atrium. Mitral Valve Normal mitral valve. Tricuspid Valve Normal tricuspid valve. Aortic Valve Normal aortic valve. Pulmonic Valve Normal pulmonic valve. Great Vessels Normal aortic root. The pulmonary artery is normal size. Normal inferior vena cava. Pericardium/Pleural No pericardial effusion. Medication Diluted definity 3ml given slow IV push to enhance endocardial definition. Performed a rapid injection of agitated mix of 9 cc saline and 1cc air to assess for atrial septal defect. MMode/2D Measurements & Calculations LVIDd: 4.3 cm IVSd: 1.3 cm LA dimension: 4.0 cm LVIDs: 2.7 cm LVPWd: 1.2 cm FS: 36.3 % LAV(MOD-sp4): 37.1 ml LA A4 area: 14.3 cm2 RA A4 area: 12.4 cm2 Time Measurements MV dec time: 0.33 sec Doppler Measurements & Calculations MV E max ricardo: 52.3 cm/sec Lat Peak E' Ricardo: 7.5 cm/sec Med Peak E' Ricardo: 5.0 cm/sec MV A max ricardo: 89.5 cm/sec E/E' lat: 7.0 E/E' med: 10.5 MV E/A: 0.58 MV V2 max: 95.4 cm/sec MV P1/2t max ricardo: 57.2 cm/sec Ao V2 max: 140.8 cm/sec MV max P.6 mmHg MV P1/2t: 130.2 msec Ao max P.9 mmHg MV V2 mean: 41.2 cm/sec MV dec slope: 128.6 cm/sec2 MV mean P.85 mmHg MV V2 VTI: 27.5 cm MVA(P1/2t): 1.7 cm2 LV V1 max: 126.2 cm/sec PA V2 max: 97.3 cm/sec LV V1 max P.4 mmHg ECHO/Echo Complete W/ Contrast Interpretation Summary Normal LV size. Left ventricular systolic function is normal. The estimated ejection fraction is 60 %. Stage 1 diastolic dysfunction. Mild concentric left ventricular hypertrophy. Contrast injection was performed. Ordering Physician: Ronnie Aden Referring Physician: Portillo Qureshi Performed By: Manjeet Gama RCS
--- NOTE | 2021-03-24 23:05 | PCS.PANDOC ---
PANDEMIC DOCUMENTATION INITIATED: Date: 12/15/2020 Time: 190
[2021-03-24 23:17] VITALS: BP 166/70; PULSE 69; RESP 16; TEMP 36.7; O2SAT 100
[2021-03-24 23:18] VITALS: PULSE 68
[2021-03-25] VITALS (10 sets, daily range): BP systolic 137–153; BP diastolic 62–77; PULSE 59–70; RESP 14–16; TEMP 36.6–36.9; O2SAT 94–95; BMI 33.5
[2021-03-25 06:28] LABS: Absolute Lymphocyte Count 2.28 X10^3/uL (0.83-4.51); Absolute Neutrophil Count 7.5 X10^3/uL (2.0-7.7); Basophil# 0.03 X10^3/uL; Basophil% 0.3 % (0-1); Eosinophil# 0.31 X10^3/uL; Eosinophils% 2.8 % (0-5); Hematocrit 41.4 % (37-47); Hemoglobin 13.5 g/dL (12.0-15.0); Lymphocyte # 2.28 X10^3/ul (0.83-4.51); Lymphocyte % 20.9 % (19-41); Mean Corp Hgb Conc 32.6 g/dL (32-36); Mean Corpuscular Volume 85.7 fL (81-99); Mean Platelet Vol. 9.7 fl (6.2-12.0); Monocyte% 6.4 % (0-10); NRBC Flagged by Analyzer 0 % (0-5); Neutrophil # 7.53 X10^3/uL (2.7-7.7); Neutrophil % 69.2 % (47-70); Platelet Count 311 K/mm3 (150-450); RBC Distribution Width CV 13.7 % (11.6-14.6); RBC Distribution Width SD 42.4 fl (35.1-43.9); Red Blood Count 4.83 M/mm3 (4.2-5.4); White Blood Count 10.9 K/mm3 (4.4-11.0)
[2021-03-25 06:53] LABS: Anion Gap 8 (5-15); BUN 16 mg/dL (7-18); BUN/Creat Ratio 19.3 RATIO (10-20); Calcium,Total 8.6 mg/dL (8.5-10.1); Chloride 106 mmol/L (98-107); Cholesterol 189 mg/dL (200); Creatinine, Serum 0.83 mg/dL (0.55-1.02); EST Glomerular Filtration Rate 71 mL/min (>60); Est Glom Filt Rate - Afr Amer 86 mL/min (>60); Estimated Creatinine Clearance 51.35 ml/min; Glucose 103 mg/dL (74-106); High Density Lipoprotein 52 mg/dL; Potassium 4.2 mmol/L (3.5-5.1); Sodium Level 138 mmol/L (136-145); Triglycerides 112 mg/dL; Very Low Density Lipoprotein 22 mg/dL (5-40)
--- NOTE | 2021-03-25 09:00 | MRI_ITS ---
STUDY: MRA OF THE HEAD WITHOUT CONTRAST REASON FOR EXAM: Female, 75 years old. Stroke altered mental status TECHNIQUE: 3-D atma-gk-ofndkf (TOF) imaging was performed with MIPs. The study was performed unenhanced. COMPARISON: None. FINDINGS: Bilateral base of skull carotids, bifurcations, anterior and middle cerebral arteries and proximal branches are patent. Posterior communicating arteries are not well seen Posterior cerebral arteries and superior cerebellar arteries and proximal branches are patent. Vertebral arteries, basilar arteries are patent. MRI/MRA Head ONLY without Contrast IMPRESSION: 1. Unremarkable [place] and proximal branches. Electronically Signed: Raji Cm MD at 17:25 EST Tel , Service support ,
--- NOTE | 2021-03-25 09:00 | MRI_ITS ---
STUDY: MRI BRAIN WITHOUT CONTRAST REASON FOR EXAM: Female, 75 years old. Stroke altered mental status follow-up of brain abnormality TECHNIQUE: Standardized multiplanar fat and water weighted pulse sequences were obtained. COMPARISON: 24 March 2021 FINDINGS: Brain parenchyma is intact without focal lesions, mass effect, extra parenchymal fluid collections, hydrocephalus or herniation. There is moderately extensive deep cerebral, thalamic and pontine chronic ischemic change. Major vascular flow structures are intact. Craniocervical junction is unremarkable. Appearance is similar to prior. MRI/Brain without Contrast IMPRESSION: 1. No acute infarct. 2. No focal disease. 3. Moderate chronic small vessel ischemic change. Electronically Signed: Raji Cm MD at 16:58 EST Tel , Service support ,
--- NOTE | 2021-03-25 09:00 | MRI_ITS ---
STUDY: MRA NECK WITHOUT CONTRAST REASON FOR EXAM: Female, 75 years old. Altered mental status vascular assessment, possible stroke TECHNIQUE: Source images were obtained, MIPs were performed. The study was performed unenhanced. COMPARISON: None. FINDINGS: Origins and intramediastinal portions of the great vessels are evaluated in a limited fashion due to pulsation artifact. Bilateral common carotid, internal and external carotid arteries are patent. Intraosseous cervical vertebral arteries are patent. MRI/MRA Neck without Contrast IMPRESSION: Unremarkable cervical arteries. Electronically Signed: Raji Cm MD at 19:45 EST Tel , Service support ,
[2021-03-25] MEDS: Clopidogrel Bisulfate 75 MG Tablet PO (10:50)
[2021-03-25] MEDS: Multivitamin (Healthy Eyes) Capsule 1 CAP PO (10:50)
[2021-03-25] MEDS: FLUoxetine 20 MG Capsule 60 MG PO (10:50)
[2021-03-25] MEDS: Aspirin 81 MG TAB.CHEW PO (10:50)
--- NOTE | 2021-03-25 10:54 | PCM.DC ---
Discharge Instructions Diet Discharge Diet: No restrictions Activity Discharge Activity: Return to Normal Activity Weight Bearing Status: Weight bearing as tolerated Dressing / Incision Call your doctor if you observe: Fever of 101 or Higher, Numbness or Tingling, Shortness of breath, Dizziness, Chest pain, Increased palpitations (irregular heartbeat) and Calf discomfort Follow Up Care Please Follow Up With: Primary care provider When: Within the next two weeks. Test Results: Test results from this visit will be discussed in further detail at your follow-up appointment, if applicable. Discharge Plan Admission Admit Date/Time: 03/24/21 22:11 Primary Reason for Your Visit: Stroke like symptoms Attending Provider: Hussein Helms Primary Care Provider: Portillo Qureshi Discharge Orders/Prescriptions Prescriptions: Continued atorvastatin 80 mg tablet 80 mg PO QDAY RF: 0 clopidogrel 75 mg tablet 75 mg PO QDAY RF: 0 lisinopril 5 mg tablet 5 mg PO QDAY RF: 0 levothyroxine 125 mcg tablet 125 mcg PO DAILY RF: 0 metoprolol succinate 50 mg tablet extended release 24 hr 50 mg PO DAILY RF: 0 PreserVision AREDS 14,320-226-200 kodu-vt-fwad capsule 1 cap PO DAILY RF: 0 naproxen sodium 220 MG tablet 220 mg PO DAILY PRN PRN (Reason: Pain) RF: 0 fluoxetine 20 mg tablet 60 mg PO DAILY RF: 0 aspirin 81 MG tablet,chewable 81 mg PO DAILY@0800 RF: 0 Referrals / Follow Up: Portillo Qureshi MD [Primary Care Provider] - Within 2 Weeks Disposition Disposition (needs filled in before D/C Order can be placed): Home, Self Care
--- NOTE | 2021-03-25 11:30 | CASEMGMT ---
DIANE FRANCES NOTE: DIANE FRANCES to pt room. Introduced self and role. Pt resting in bed. Awake/alert/oriented. Denies having any concerns w/going home @ discharge. MRI results negative for acute infarction. Gagandeep BORRERON DIANE FRANCES
[2021-03-25] MEDS: Mag Hydrox/Al Hydrox/Simeth 30 ML UDC PO (14:04)
[2021-03-25] MEDS: Acetaminophen 325 MG Tablet 650 MG PO (14:07)
--- NOTE | 2021-03-25 15:45 | DS.PCM_ITS ---
Documented by User: Alexis LEVY 03/25/21 18:48 Providers Date of Admission: 03/24/21 Primary Care Physician: Dr. Portillo Qureshi MD Reason For Visit: ACUTE ENCEPHALOPATHY Diagnosis Discharge Diagnosis (1) Acute encephalopathy: Status: Acute Code(s): G93.40 - Encephalopathy, unspecified (2) CVA (cerebral vascular accident): Status: Acute Code(s): I63.9 - Cerebral infarction, unspecified Qualifiers: CVA mechanism: unspecified Qualified Code(s): I63.9 - Cerebral infarction, unspecified Medications at Discharge Home Medications naproxen sodium 220 mg PO DAILY PRN PRN 09/17/13 aspirin 81 mg PO DAILY@0800 10/15/14 atorvastatin 80 mg tablet 80 mg PO QDAY 08/16/17 clopidogrel 75 mg tablet 75 mg PO QDAY 08/16/17 lisinopril 5 mg tablet 5 mg PO QDAY 08/16/17 fluoxetine 20 mg tablet 60 mg PO DAILY tab 08/21/18 levothyroxine 125 mcg tablet 125 mcg PO DAILY 08/21/18 metoprolol succinate 50 mg tablet,extended release 24 hr 50 mg PO DAILY 08/21/18 vitamins A,C,L-hbpv-wlygch 14,320 unit-226 mg-200 unit capsule 1 cap PO DAILY cap 08/21/18 Hospital Course Summary of Care Provided Minutes Spent on Discharge: 35 Hospital Course: Patient is a 75-year-old female who was admitted to the hospital on 03/24/2021 for strokelike symptoms. Strokelike symptoms for admi ssion have resolved and patient did not demonstrate any focal neurological deficits on my exam. Brain MRI was obtained did not demonstrate any evidence of acute ischemia or infarct. Head MRI did not demonstrate any significant stenosis. Echocardiogram was obtained and demonstrated normal LV size and function, an estimated EF of 60% and stage I diastolic dysfunction. Patient's home medication regimen already includes aspirin 81 mg daily, high intensity statin and Plavix and 75 mg daily. No physical therapy occupational therapy needs were noted on PT/OT eval. Patient will be discharged home for outpatient follow-up with her primary care provider. Patient seen by Alexis Avila PA-C, under the supervision of Dr. Helms. Physical Exam Narrative Patient is a 75-year-old female comfortably resting in bed, alert and orient x3. Patient reports resolution of dizziness and N/V from admission. Denies development of any new symptoms overnight. Does not demonstrate any focal neurological deficits. Does not appear in acute distress. Const alert, oriented x3 and no apparent distress HEENT normocephalic, head/scalp atraumatic and hearing grossly normal bilaterally Eyes PERRL, EOMs intact bilaterally and conjunctivae normal Neck no lymphadenopathy, supple and no JVD Resp normal respiratory effort, no retractions, no use of accessory muscles and clear to auscultation bilaterally Cardio regular rate, regular rhythm, no murmurs and no JVD GI normal to inspection, nondistended, normoactive bowel sounds, soft to palpation and non-tender Extremity normal to inspection, full ROM and no clubbing, cyanosis or edema Skin no rashes or lesions noted, no wounds and skin turgor normal Neuro CN's II-XII intact bilaterally Psych affect normal Weight / BMI Weight Weight: 195 lb Body Mass Index (BMI) 33.5 ABG / Lab / Microbiology Data Result Diagrams: 03/25/21 04:55 03/25/21 05:28 Laboratory: Laboratory Results - last 24 hr 03/24/21 18:50: WBC 10.8, RBC 5.13, Hgb 14.1, Hct 43.1, MCV 84.0, MCH 27.5, MCHC 32.7, RDW Std Deviation 41.4, RDW Coeff of Chad 13.4, Plt Count 315, MPV 9.6, Immature Gran % (Auto) 0.600, Neut % (Auto) 73.9 H, Lymph % (Auto) 15.6 L, George % (Auto) 5.2, Eos % (Auto) 4.2, Baso % (Auto) 0.5, Absolute Neuts (auto) 8.0 H, Absolute Lymphs (auto) 1.68, Nucleated RBC % 0 03/24/21 18:50: Sodium 136, Potassium 3.6, Chloride 105, Carbon Dioxide 22.0, Anion Gap 9, BUN 19 H, Creatinine 0.91, Estim Creat Clear Calc 46.84, Est GFR (MDRD) Af Amer 77, Est GFR (MDRD) Non-Af 64, BUN/Creatinine Ratio 20.8 H, Glucose 118 H, Calcium 8.7, Total Bilirubin 0.50, AST 18, ALT 26, Alkaline Phosphatase 118 H, Troponin I High Sens 8, Total Protein 7.4, Albumin 3.4, Globulin 4.0, Albumin/Globulin Ratio 0.8 L 03/24/21 19:21: Lactic Acid 1.6 03/24/21 20:10: Urine Color Yellow, Urine Clarity Clear, Urine pH 6.0, Ur Specific [place] 1.020, Urine Protein 15 H, Urine Glucose (UA) Normal, Urine Ketones 5 H, Urine Occult Blood Negative, Urine Nitrite Negative, Urine Bilirubin Negative, Urine Urobilinogen Normal, Ur Leukocyte Esterase Negative, Urine RBC 0 SEEN, Urine WBC 0 SEEN, Ur Squamous Epith Cells 0-5 SEEN, Urine Bacteria 0 SEEN, Urine Mucus 0 SEEN 03/25/21 04:55: WBC 10.9, RBC 4.83, Hgb 13.5, Hct 41.4, MCV 85.7, MCH 28.0, MCHC 32.6, RDW Std Deviation 42.4, RDW Coeff of Chad 13.7, Plt Count 311, MPV 9.7, Imm ature Gran % (Auto) 0.400, Neut % (Auto) 69.2, Lymph % (Auto) 20.9, George % (Auto) 6.4, Eos % (Auto) 2.8, Baso % (Auto) 0.3, Absolute Neuts (auto) 7.5, Absolute Lymphs (auto) 2.28, Nucleated RBC % 0 03/25/21 05:28: Sodium 138, Potassium 4.2, Chloride 106, Carbon Dioxide 24.0, A nion Gap 8, BUN 16, Creatinine 0.83, Estim Creat Clear Calc 51.35, Est GFR (MDRD) Af Amer 86, Est GFR (MDRD) Non-Af 71, BUN/Creatinine Ratio 19.3, Glucose 103, Calcium 8.6, Triglycerides 112, Cholesterol 189, LDL Cholesterol 115, VLDL Cholesterol 22, HDL Cholesterol 52 Radiography Diagnostic Testing: Radiology Impression Brain CT 03/24/21 19:10 IMPRESSION: Questionable remote versus subacute infarcts in the basal ganglia and white matter. Correlation with MRI is recommended. N.B. : The above Results were Read Back by Parrish Dorsey DO to Zane Castillo DO, and understanding confirmed on 03/24/2021 20:16:15 (ET). Electronically Signed: Parrish Dorsey DO at 20:17 EST Tel [phone], Service support , ADDENDUM: 03/24/212023 IMPRESSION: Questionable remote versus subacute infarcts in the basal ganglia and white matter. Correlation with MRI is recommended. N.B. : The above Results were Read Back by Parrish Dorsey DO to Zane Castillo DO, and understanding confirmed on 03/24/2021 20:16:15 (ET). Electronically Signed: Parrish Dorsey DO at 20:17 EST Tel [phone], Service support , Chest X-Ray 03/24/21 19:39 IMPRESSION: No acute cardiopulmonary disease or major interval change. Electronically Signed: Parrish Dorsey DO at 20:18 EST Tel [phone], Service support , Echocardiogram 03/24/21 23:04 Interpretation Summary Normal LV size. Left ventricular systolic function is normal. The estimated ejection fraction is 60 %. Stage 1 diastolic dysfunction. Mild concentric left ventricular hypertrophy. Contrast injection was performed. Ordering Physician: Ronnie Aden Referring Physician: Portillo Qureshi Performed By: Manjeet Gama RCS D/C Instructions Discharge Diet: No restrictions Weight Bearing Status: Weight bearing as tolerated Call your doctor if you observe: Fever of 101 or Higher, Numbness or Tingling, Shortness of breath, Dizziness, Chest pain, Increased palpitations (irregular heartbeat) and Calf discomfort Please Follow Up With: Primary care provider When: Within the next two weeks. Meaningful Use Info Meaningful Use Diagnoses (Choose all that apply): None applicable Discharge Plan Admission Admit Date/Time: 03/24/21 22:11 Primary Reason for Your Visit: Stroke ruled out Attending Provider: Hussein Helms Primary Care Provider: Portillo Qureshi Discharge Orders/Prescriptions Prescriptions: Continued atorvastatin 80 mg tablet 80 mg PO QDAY RF: 0 clopidogrel 75 mg tablet 75 mg PO QDAY RF: 0 lisinopril 5 mg tablet 5 mg PO QDAY RF: 0 levothyroxine 125 mcg tablet 125 mcg PO DAILY RF: 0 metoprolol succinate 50 mg tablet extended release 24 hr 50 mg PO DAILY RF: 0 PreserVision AREDS 14,320-226-200 uhdt-ns-vgqn capsule 1 cap PO DAILY RF: 0 naproxen sodium 220 MG tablet 220 mg PO DAILY PRN PRN (Reason: Pain) RF: 0 fluoxetine 20 mg tablet 60 mg PO DAILY RF: 0 aspirin 81 MG tablet,chewable 81 mg PO DAILY@0800 RF: 0 Referrals / Follow Up: Portillo Qureshi MD [Primary Care Provider] - Within 2 Weeks Disposition Disposition (needs filled in before D/C Order can be placed): Home, Self Care Documented by User: Dr. Hussein Helms MD 03/26/21 09:40 Providers Date of Admission: 03/24/21 Reason For Visit: ACUTE ENCEPHALOPATHY Medications at Discharge Home Medications naproxen sodium 220 mg PO DAILY PRN PRN 09/17/13 aspirin 81 mg PO DAILY@0800 10/15/14 atorvastatin 80 mg tablet 80 mg PO QDAY 08/16/17 clopidogrel 75 mg tablet 75 mg PO QDAY 08/16/17 lisinopril 5 mg tablet 5 mg PO QDAY 08/16/17 fluoxetine 20 mg tablet 60 mg PO DAILY tab 08/21/18 levothyroxine 125 mcg tablet 125 mcg PO DAILY 08/21/18 metoprolol succinate 50 mg tablet,extended release 24 hr 50 mg PO DAILY 08/21/18 vitamins A,C,K-pjnj-qzabdw 14,320 unit-226 mg-200 unit capsule 1 cap PO DAILY cap 08/21/18 Hospital Course Summary of Care Provided Hospital Course: This patient was seen in conjunction with CAM Yao. I have independently interviewed and examined the patient and reviewed pertinent history, examination findings, laboratory and plan of management. I have reviewed the note and agree with the documented findings with the few additional points. In brief, patient was admitted for altered mental status/confusion probably from nausea and vomiting. She is on baseline mental status. Nausea and vomiting is resolved. Stroke work-up was done and MRI negative for acute infarct or intracranial change. Head MRA did not show hemodynamically significant stenosis. Echo was done confining admission above. Negative for PFO. Sinus rhythm on clinical research monitor. Patient has history of coronary artery disease status post PCI. No previous episodes of TIA or stroke. Discharge medication reconciliation done. Discharge follow-up instructions completed. Discharge process discussed with the patient and all questions were answered to patient's satisfaction. Patient wants to go home. Patient on aspirin, Plavix and high intensity statin Total time spent, exact 35 minutes on discharge meds reconciliation, examination, coordination of care with nurses and ancillary staff, review of imaging and blood test and discussion with the patient on follow-up instructions I have discussed my assessment with CAM Yao and orders have been reviewed. Physical Exam Narrative Seen and examined. Patient feels on the normal baseline. The patient was admitted with confusion/amnestic event after she had nausea and vomiting about 2-3 times. She did not had unusual food or suspicion of food poisoning. The nausea and vomiting are resolved now. Physical exam General: Alert, Oriented x3, Cooperative HEENT: Atraumatic, PERRLA, EOMI, Normocephalic Oral: No Gingival or Mucosal Lesions/ Ulcerations Neck: Supple, No JVD, Negative Carotid Bruits Lungs: Air entry equal in bilateral lung bases. No crepitation/rhonchi Cardiovascular: Regular rate, Regular Rhythm, Normal S1, Normal S2, No murmurs Abdomen: Bowel Sounds Present, Soft, Non Tender, Non-Distended : No renal angle tenderness. No suprapubic tenderness. Extremities: No edema, Capillary Refill Less than 3 Seconds Skin: No rashes, No breakdown Musculoskeletal: No Tenderness to Palpation of Joints or Extremities. Muscle strength 5/5 at major joints. Neurological: Cranial nerves II-XII grossly intact, DTR 2+/4 and Symmetrical, Neuro grossly intact Psych/Mental Status: Normal Affect, Appropriate. ABG / Lab / Microbiology Data Result Diagrams: 03/25/21 04:55 03/25/21 05:28 Discharge Plan Admission Admit Date/Time: 03/24/21 22:11 Primary Reason for Your Visit: Stroke ruled out Attending Provider: Hussein Helms Primary Care Provider: Portillo Qureshi Discharge Orders/Prescriptions Prescriptions: Continued atorvastatin 80 mg tablet 80 mg PO QDAY RF: 0 clopidogrel 75 mg tablet 75 mg PO QDAY RF: 0 lisinopril 5 mg tablet 5 mg PO QDAY RF: 0 levothyroxine 125 mcg tablet 125 mcg PO DAILY RF: 0 metoprolol succinate 50 mg tablet extended release 24 hr 50 mg PO DAILY RF: 0 PreserVision AREDS 14,320-226-200 xpla-xc-jqrl capsule 1 cap PO DAILY RF: 0 naproxen sodium 220 MG tablet 220 mg PO DAILY PRN PRN (Reason: Pain) RF: 0 fluoxetine 20 mg tablet 60 mg PO DAILY RF: 0 aspirin 81 MG tablet,chewable 81 mg PO DAILY@0800 RF: 0 Referrals / Follow Up: Portillo Qureshi MD [Primary Care Provider] - Within 2 Weeks Disposition Disposition (needs filled in before D/C Order can be placed): Home, Self Care Charges/Coding Visit Charges Inpatient E&M: 09214 Disch Hosp
== END 2021-03-25 19:15 | disposition home or self-care (01) ==
LOC: ED 22:16 → PCU 22:26
PROVIDERS: Admitting Provider Hospitalist; Emergency Provider Emergency Medicine; PCP Family Medicine; Visit Provider Internal Medicine
DX: I63.9 Cerebral infarction, unspecified (principal); G93.41 Metabolic encephalopathy; I10 Essential (primary) hypertension; I25.10 Atherosclerotic heart disease of native coronary artery without angina pectoris; R94.39 Abnormal result of other cardiovascular function study; F41.9 Anxiety disorder, unspecified; F32.A Depression, unspecified; E03.9 Hypothyroidism, unspecified; E78.00 Pure hypercholesterolemia, unspecified; Z79.899 Other long term (current) drug therapy; Z79.02 Long term (current) use of antithrombotics/antiplatelets; Z79.82 Long term (current) use of aspirin; Z95.5 Presence of coronary angioplasty implant and graft
CPT/HCPCS: 36415; 70450; 70544; 70547; 70551; 71045; 80048; 80053; 80061; 81001; 83605; 84484; 85025; 93005; 93306; 94762; 97162; 97166; 99218; 99285; Q9957; A4216; C8929; G0378; J3490

== ENCOUNTER 2021-05-26 10:57 | Outpatient (CLI) | payer MEDICARE, OTHER, SELFPAY ==
[2021-05-26 15:27] LABS: Absolute Lymphocyte Count 1.75 X10^3/uL (0.83-4.51); Absolute Neutrophil Count 3.8 X10^3/uL (2.0-7.7); Basophil% 1.5 % (0-1); Eosinophil# 0.56 X10^3/uL; Eosinophils% 8.3 % (0-5); Hematocrit 44.3 % (37-47); Hemoglobin 13.9 g/dL (12.0-15.0); Lymphocyte # 1.75 X10^3/ul (0.83-4.51); Lymphocyte % 25.8 % (19-41); Mean Corp Hgb Conc 31.4 g/dL (32-36); Mean Corpuscular Hgb 27.3 pg (27.0-32.0); Mean Platelet Vol. 10.1 fl (6.2-12.0); Monocyte# 0.51 X10^3/uL; Monocyte% 7.5 % (0-10); NRBC Flagged by Analyzer 0 % (0-5); Neutrophil # 3.84 X10^3/uL (2.7-7.7); Neutrophil % 56.6 % (47-70); Platelet Count 337 K/mm3 (150-450); RBC Distribution Width CV 13.4 % (11.6-14.6); Red Blood Count 5.09 M/mm3 (4.2-5.4); White Blood Count 6.8 K/mm3 (4.4-11.0)
[2021-05-26 15:50] LABS: ALB/GLOB Ratio 0.8 RATIO (0.9-2.4); AST(SGOT) 22 U/L (15-37); Alanine Aminotransfer ALT/SGPT 34 U/L (13-56); Albumin, Serum 3.5 g/dL (3.2-5.0); Alkaline Phosphatase 128 U/L (45-117); Anion Gap 6 (5-15); BUN 16 mg/dL (7-18); BUN/Creat Ratio 18.7 RATIO (10-20); Calcium,Total 9.1 mg/dL (8.5-10.1); Chloride 107 mmol/L (98-107); Creatinine, Serum 0.85 mg/dL (0.55-1.02); EST Glomerular Filtration Rate 69 mL/min (>60); Est Glom Filt Rate - Afr Amer 83 mL/min (>60); Globulin 4.2 g/dL (2.2-4.2); Glucose 94 mg/dL (74-106); Potassium 4.1 mmol/L (3.5-5.1); Protein, Total 7.7 g/dL (6.4-8.2); Sodium Level 138 mmol/L (136-145)
[2021-05-26 16:18] LABS: Erythrocyte Sedimentation Rate 23 mm/hr (0-30)
[2021-05-27 11:04] LABS: Rheumatoid Factor < 10.0 IU/mL (<15)
[2021-06-01 18:08] LABS: Immunoglobulin A 141 mg/dL (64-422); Immunoglobulin E 115 IU/mL (6-495); Immunoglobulin G 1134 mg/dL (586-1602); Immunoglobulin M 165 mg/dL (26-217); PROEL- A/G Ratio 1.2 (0.7-1.7); PROEL- Albumin 3.6 g/dL (2.9-4.4); PROEL- Alpha-1 Globulin 0.2 g/dL (0.0-0.4); PROEL- Alpha-2 Globulin 0.8 g/dL (0.4-1.0); PROEL- Gamma Globulin 1.1 g/dL (0.4-1.8); PROEL- TOTAL PROTEIN 6.6 g/dL (6.0-8.5)
[2021-06-02 12:10] LABS: Thyroid Peroxidase AB 223 IU/mL (0-34)
== END 2021-05-26 23:59 | disposition short-term general hospital (02) ==
LOC: MTLAB 10:58
PROVIDERS: PCP Family Medicine; Referring Provider Dermatology; Visit Provider Dermatology
DX: L50.3 Dermatographic urticaria (principal)
CPT/HCPCS: 36415; 80053; 82784; 82785; 83520; 84165; 85025; 85652; 86038; 86376; 86431

== ENCOUNTER 2021-07-27 10:51 | Outpatient (CLI) | payer MEDICARE, OTHER, SELFPAY ==
--- NOTE | 2021-07-27 10:54 | BI_ITS ---
MAMMOGRAPHY - BILATERAL SCREENING REASON FOR EXAM: Female, 76 years old. Routine annual screening examination. PERTINENT HISTORY: Mother with breast cancer. TECHNIQUE: Digital bilateral breast casey (3D mammographic acquisition) in the CC and MLO projections. 2-D mediolateral oblique (MLO) and craniocaudad (CC) views of both breasts were obtained. CAD: Full Field Digital Mammography with Computer Added Detection was performed. COMPARISON: Comparison is made with prior study dated 11/19/2020 and 04/19/2019. FINDINGS: Breast Composition: There are scattered areas of fibroglandular density. There are no dominant masses or suspicious calcifications. Stable benign-appearing bilateral axillary lymph nodes. No other significant abnormalities are identified. There has been no significant change since the prior study. BI/SCRN MAMM (CAD)W/CASEY BILAT IMPRESSION: Stable bilateral screening mammogram. Yearly follow-up mammogram recommended. (A) ASSESSMENT CATEGORY: BIRADS Category 2: Benign. A letter regarding these results will be sent to the patient by the facility within 30 days. Approximately 10% of breast cancers are not detected by mammography. A normal mammogram should not delay biopsy of a clinically suspicious abnormality. [id number] Electronically Signed: Jarad Max MD at 12:01 EDT ,
== END 2021-07-27 23:59 | disposition home or self-care (01) ==
LOC: OPBI 10:52
PROVIDERS: PCP Family Medicine; Visit Provider Family Medicine
DX: Z12.31 Encounter for screening mammogram for malignant neoplasm of breast (principal)
CPT/HCPCS: 77063; 77067

== ENCOUNTER → 2021-10-21 | Outpatient (CLI) | payer MEDICARE, OTHER, SELFPAY ==
--- NOTE | 2021-10-21 10:59 | STRESSREP ---
Stress Test Report Date: 10-21-2021 Procedure: Pharmacologic stress nuclear imaging study Indications: CAD, PCI, hyperlipidemia, hypertension, preoperative cardiovascular evaluation Consent: Per the patient Procedure: The patient underwent pharmacologic (Regadenoson 0.4mg ) evaluation with a peak heart rate of 65 beats per minute (44%predicted maximal heart rate) and a peak blood pressure of 152/92 mmHg. The baseline ECG demonstrated sinus bradycardia. The peak pharmacologic ECG demonstrated no obvious ECG changes. There were no cardiac dysrhythmias pretest, during pharmacologic infusion, or recovery. There was no complaint of chest discomfort during pharmacologic infusion or recovery. The examination was discontinued secondary to completion of protocol. Impression: 1. Pharmacologic (Regadenoson) evaluation 2. Peak pharmacologic ECG with no obvious ECG changes. 3. There were no cardiac dysrhythmias pretest, during pharmacologic infusion, or recovery. 4. Nuclear images pending Myocardial perfusion imaging study: Technique: The patient was injected with 11.9 millicuries of technetium 99m Cardiolite and subsequently rest SPECT Cardiolite nuclear imaging was obtained in the horizontal long, vertical long, and short axis views. The patient underwent pharmacologic (Regadenoson) evaluation with a peak heart rate of 65 beats per minute (44% percent predicted maximal heart rate) and a peak blood pressure of 152/92 mmHg. The patient was injected with 34.7 millicuries of technetium 99m Cardiolite and subsequently stress SPECT Cardiolite nuclear imaging was obtained in the horizontal long, vertical long, and short axis views. A gated Cardiolite study at peak stress was obtained. Interpretation: Rest and stress SPECT Cardiolite nuclear imaging status post realignment, normalization, and attenuation correction demonstrate relative uniform tracer uptake and myocardial perfusion appearing within normal limits. There is end systolic thickening and brightening. The gated Cardiolite study demonstrates myocardial thickening and inward wall motion. The reported LVEF is 77%. Impression: 1. Rest and stress SPECT Cardiolite nuclear imaging demonstrate relative uniform tracer uptake and myocardial perfusion appearing within normal limits. 2. The gated Cardiolite study reports an LVEF of 77%. This note was generated with [employer] software. It may contain incorrect words, spelling, and punctuation that were not noted in checking the note before signing.
== END | disposition home or self-care (01) ==
LOC: CVS 06:50
PROVIDERS: PCP Family Medicine; Referring Provider Internal Medicine Cardiovascular Disease; Visit Provider Internal Medicine Cardiovascular Disease
DX: R53.83 Other fatigue (principal); E34.0 Carcinoid syndrome; E78.00 Pure hypercholesterolemia, unspecified; I25.10 Atherosclerotic heart disease of native coronary artery without angina pectoris; R00.1 Bradycardia, unspecified; I10 Essential (primary) hypertension; Z95.5 Presence of coronary angioplasty implant and graft
CPT/HCPCS: 78452; 93017; A9500; A4216; J2785

== ENCOUNTER → 2021-11-17 | Outpatient (CLI) | payer MEDICARE, OTHER, SELFPAY ==
--- NOTE | 2021-11-17 13:50 | CT_ITS ---
STUDY: CT SCAN OR EXTREMITY RIGHT REASON FOR EXAM: Female, 76 years old. ARTHRITIS/PRE OP.AMRIT protocol. RADIATION DOSAGE (If Supplied By Facility): CTDIvol = ( 18.76 ) mGy, DLP = ( 1201.67 ) mGycm. Individualized dose optimization techniques were used for this CT.? TECHNIQUE: Multiple axial tomographic images of the right hip joint, knee joint and ankle joint were obtained. Coronal and sagittal reconstruction was obtained as well. COMPARISON: None. FINDINGS: Imaging of the right hip joint was performed. No significant joint space narrowing is seen. No bony abnormality is present. Imaging of the knee joint was obtained. There is a moderate degree of joint space narrowing involving the medial compartment of the knee joint with degenerative spur formation along the medial femoral condyle and medial tibial plateau. There is a moderate size joint effusion. Mild degree of patellofemoral osteoarthritis. There is also evidence of a 5.6 mm joint mouse. Imaging of the ankle joint was obtained. There is evidence of calcaneal spurs. The joint space is well-maintained. There appears be an old avulsion fracture of the lateral malleolus. CT/Extremity Lower without Contra IMPRESSION: Moderate degree of joint space narrowing of the medial compartment of the knee joint with a moderate joint effusion. 5.6 mm joint body seen within the right knee joint. Electronically Signed: Jarad Max MD at 14:51 EDT ,
== END | disposition home or self-care (01) ==
PROVIDERS: PCP Family Medicine; Referring Provider Orthopaedic Surgery; Visit Provider Orthopaedic Surgery
DX: M17.11 Unilateral primary osteoarthritis, right knee (principal)
CPT/HCPCS: 73700

== ENCOUNTER 2021-11-30 14:05 | Observation (INO) | payer MEDICARE, OTHER, SELFPAY ==
[2021-11-17 16:25] LABS: Absolute Lymphocyte Count 1.92 X10^3/uL (0.83-4.51); Absolute Neutrophil Count 3.1 X10^3/uL (2.0-7.7); Basophil# 0.06 X10^3/uL; Eosinophil# 0.35 X10^3/uL; Eosinophils% 5.9 % (0-5); Hematocrit 43.9 % (37-47); Hemoglobin 13.8 g/dL (12.0-15.0); Lymphocyte # 1.92 X10^3/ul (0.83-4.51); Lymphocyte % 32.5 % (19-41); Mean Corp Hgb Conc 31.4 g/dL (32-36); Mean Corpuscular Hgb 26.8 pg (27.0-32.0); Mean Corpuscular Volume 85.2 fL (81-99); Monocyte# 0.47 X10^3/uL; NRBC Flagged by Analyzer 0 % (0-5); Neutrophil # 3.09 X10^3/uL (2.7-7.7); Neutrophil % 52.4 % (47-70); Platelet Count 303 K/mm3 (150-450); RBC Distribution Width CV 13.7 % (11.6-14.6); RBC Distribution Width SD 42.5 fl (35.1-43.9); Red Blood Count 5.15 M/mm3 (4.2-5.4); White Blood Count 5.9 K/mm3 (4.4-11.0)
[2021-11-17 16:47] LABS: Anion Gap 6 (5-15); BUN 21 mg/dL (7-18); Calcium,Total 9.2 mg/dL (8.5-10.1); Chloride 107 mmol/L (98-107); EST Glomerular Filtration Rate 57 mL/min (>60); Est Glom Filt Rate - Afr Amer 70 mL/min (>60); Glucose 130 mg/dL (74-106); Sodium Level 139 mmol/L (136-145)
[2021-11-17 21:51] LABS: Magnesium 2.1 mg/dL (1.6-2.6); Thyroid Stim Hormone (TSH) 1.16 uIU/mL (0.358-3.74)
[2021-11-30] VITALS (12 sets, daily range): BP systolic 108–154; BP diastolic 49–69; PULSE 60–80; RESP 14–18; TEMP 36.4–36.8; O2SAT 90–99; BMI 33.7
[2021-11-30] MEDS: Acetaminophen 500 MG Tablet 1000 MG PO ×3 (08:48→21:55)
[2021-11-30] MEDS: Gabapentin 600 MG Tablet PO (08:48)
[2021-11-30] MEDS: Lactated Ringers 1,000 ML 125 ML IV ×2 (08:49→14:46)
[2021-11-30] MEDS: Clindamycin 900 MG/50 ML BAG 75 MG IV (10:05)
[2021-11-30] MEDS: TXA 1000mg in NS100 100ml (IVPB at Closure) 660 MG IV (10:20)
--- NOTE | 2021-11-30 10:25 | KNEE_PTH ---
PATIENT: SUJATHA THORNTON LOC: [facility]3 U#:[id number] AGE/SX: 76/F ROOM: [facility] RE11/30/[address]: Dr. Alvaro Del Castillo DO : 1945 BED: 1 DIS: 12/01/2021 SPEC #: [id number] RECD: 11/30/21 13:09 STATUS: TABITHA JACK #: [id number] NHUNG: 11/30/21 10:[address]: Alvaro Del Castillo DEPT: SURGICAL PATHOLOGY RECD BY: Bebe Lagunas ENTERED: 11/30/21 13:23 SP TYPE: TOTAL KNEE OTHR DR: MD Dr. Portillo Zamora MD Tissues: Knee, NOS Procedures: Decalcification bone/plaque Surgery Specimen Level IV HEADER OPERATION: ERAS, total knee replacement robotic arm assist PRE-OP DIAGNOSIS: Right knee osteoarthritis TISSUE SUBMITTED: Bone and soft tissue right knee MICROSCOPIC DIAGNOSIS Bone and soft tissue, right knee, total knee replacement/resection: Pieces of bone with degenerative osteoarthritic changes. RICHARD:tod 12/03/2021 MICROSCOPIC DESCRIPTION Slides are reviewed. GROSS DESCRIPTION Received is one container designated bone and soft tissue right knee. The specimen consists of multiple fragments of ybarra-yellow bone measuring in aggregate 9 x 7 x 3.5 cm. No soft tissue is identified. A number of bony fragments contain articular surfaces consistent with tibial plateau and femoral condyle and displaying prominent osteophyte formation, eburnation, and bone erosion. Box Maker Paperboard sections are submitted in one cassette after decalcification. / RICHARD:tod 11/30/2021 TC:5 CPT: 47134, 54970
[2021-11-30 10:50] LABS: Bedside Glucose 90 mg/dL (74-106)
--- NOTE | 2021-11-30 11:49 | PCM.OPRPT ---
Report of Operation Date of Procedure: 11/30/21 Pre-Operative Diagnosis: OA right knee Post-Operative Diagnosis: same Surgery/Procedure Performed:: Right TKR Description of Surgical Findings:: Report of Operation Date of Procedure: 11/30/2021 Preoperative Diagnosis: [right ] knee primary osteoarthritis Postoperative Diagnosis: [ right ] knee primary osteoarthritis Operation: Robotic Assisted Knee Total Arthroplasty, [right ] knee Surgeon: Dr Alvaro Del Castillo DO Sizing Machine Operator: Alex Franz PA-C Anesthesia: Zane Bell M.D. Anesthesiologist: general Findings: Stable knee with good patella tracking Specimen(s): Bony cuts Complications: No intraoperative complications Estimated Blood Loss: 30 cc IV Fluids: 1000 cc crystalloid Implants Used: 1. Patricia Triathlon press-fit CR size 4 femur 2. Randolph Triathlon size 4 tibia 3. 35 mm patella 4. 10 mm CS polyethylene Brief History Operative Indications: [ (76 y/o female) ] with history of [right ] knee osteoarthrosis with radiographic findings with loss of joint space, osteophyte formation and subchondral sclerosis. Failed conservative measures as mentioned in the H&P. Discussion of total knee arthroplasty as well as risk and benefits were discussed with the patient including but not limited to blood loss, DVTs, PEs, neurovascular damage, general risk of anesthesia including loss of life, and stiffness or instability were also discussed with the patient. Patient demonstrated understanding and was able to sign informed consent. Procedure: On the date of procedure, patient's [ right ] lower extremity was marked in the preoperative area. The patient was then taken back to the operating room where that patient was placed on the table in the supine position. All bony prominences were identified and well-padded. Anesthesia assumed control of the C-spine and airway throughout the remainder of the procedure. A tourniquet was placed on the [right ] upper thigh and the leg was prepped in a sterile fashion. The surgeon then scrubbed at this time. Upon reentering the room, the [right ] lower extremity was draped in a standard orthopedic fashion. A timeout was then called and everyone agreed upon the side, the site, the procedure to be performed, patient's identity and antibiotics given. Esmarch bandage was used to exsanguinate the extremity and the tourniquet was placed up to 250 mmHg with the knee in flexion. A midline skin incision was made and a sharp dissection was taken down through skin, subcutaneous tissue and fat. The standard medial parapatellar incision was made and the patella was subluxed laterally. An appropriate deep MCL release was done and the fat pad was resected. Our attention was then directed to the patella. The patella was everted and a flat resection was made. The knee was then flexed up and 2 femoral pins were placed inside the incision and 2 tibial pins were placed outside the incision in the medial tibia bicortically. Once this was completed, the 2 checkpoints in the femur and tibia were placed. Knee was then flexed up and the bony landmarks were registered. Once the was completed, the knee taken through range of motion and manually stressed allowing us to plan for an appropriate tibial cut. The robotic arm was brought into the field sterilely and checkpoint and saw were registered. Based on the patient's deformity, the tibial cut was made in [ 2 degrees varus ]. At this time, the tensioner was then placed in the joint and ligament tension was checked at 90 degrees and full extension. Based on the patient's ligamentous tension, appropriate adjustments were made to the operative plan and ligament releases were done. Once we were happy with our operative plan with balanced flexion and extension gaps, our attention was directed to the femur. The robot was brought into the field sterilely and registered. Posterior condylar cuts, anterior chamfer cuts and anterior cuts were appropriately made for a [size 4 ] femur. When these were completed, the saws were switched out in the distal femoral and posterior chamfer cuts were made. Protecting the soft tissue throughout this time. A [ size 4 ] base plate was selected. The knee was flexed to 90 degrees and soft tissues and posterior osteophytes were removed from the joint. 40 cc of the periarticular injection was injected into the posterior medial corner of the joint. The appropriate trials were then placed on the femur and tibia. A trial polyethylene was trialed to ensure proper balancing and stability of the knee. The appropriate tibial internal rotation was then marked with a bovie. Our attention was then directed to the patella. The lug holes were drilled and the patella trial was placed. Patellar tracking was checked and deemed appropriate. Once we were happy, lug holes were drilled for the femur and trial components were removed. The tibia was subluxed and pinned into place and the keel was punched and drilled appropriately. Final components were verified and opened. The wound was copiously irrigated with normal saline. The components were impacted into place with the tibia, femur and finally the patella. The trial poly component was placed and the knee was placed in full extension. The tracking, alignment and balance were verified and a [10 mm CS ] polyethylene component was placed. Once the final components were placed an Irrisept lavage was performed and the wound was copiously irrigated with normal saline solution and the periarticular injection was given. the wound was closed in a layer-garcia fashion using #1 vicryl interrupted sutures for the arthrotomy, 2-0 interrupted vicryl suture for the subcuticular layer and bekah for final skin closure. A sterile compressive dressing was then placed. The patient was then awakened from anesthesia, transferred to the [facility] and transferred to the PACU for recovery. My physician assistant attorney general was a vital part of this case. He was important in appropriate retraction during the case, and protection of soft tissues during bony cuts. His intimate knowledge of the case and my steps aided in safe and expedient completion of the procedure as well as appropriate position of the leg during the case. He was also vital in assisting with closure under my direct supervision. Due to the complexity of this case, robotic arm was used to assist in the surgery to improve accuracy and clinical outcomes. Post-op Plan: DVT ppx; ASA 81 mg BID, thigh high compression stockings Follow up: in office in 2 weeks for wound check PT: to start POD #0 at hospital, outpatient PT should be arranged. Preoperative antibiotic: Cleocin 900 mg IV Alvaro Del Castillo DO Surgeon: Alvaro Del Castillo news clipping cutter: Alex Franz Type of Anesthesia: General Anesthesiologist: Zane Bell Estimated Blood Loss (mL): 30 cc Fluids Replaced: 1000 cc crystalloid Admit VTE Documentation VTE Present on Admission: No VTE Mechan Device Prophylaxis: SCD's and Thigh High EUNICE Hose VTE Pharm Prophylaxis ordered?: Yes
--- NOTE | 2021-11-30 12:40 | RAD_ITS ---
STUDY: X-RAY - RIGHT KNEE REASON FOR EXAM: Postoperative evaluation of right total knee arthroplasty. TECHNIQUE: 2 view(s) of the knee. COMPARISON: CT images 11/17/2021. FINDINGS: There is a right total knee arthroplasty without evidence of complication. There is postoperative gas in the soft tissues and overlying skin bekah. RAD/Knee 1 or 2 Views IMPRESSION: Uncomplicated right total knee arthroplasty. Electronically Signed: Trae Graham MD at 13:48 EDT ,
[2021-11-30] MEDS: Lactated Ringers 1,000 ML 999 ML IV (12:51)
[2021-11-30] MEDS: Senna/Docusate Sodium 1 Tablet 2 TABLET PO ×2 (14:49→21:55)
[2021-11-30] MEDS: Clopidogrel Bisulfate 75 MG Tablet PO (14:50)
[2021-11-30] MEDS: Atorvastatin Calcium 80 MG Tablet PO (14:50)
[2021-11-30] MEDS: Clindamycin 600 MG/50 ML BAG 100 MG IV ×2 (15:44→21:59)
[2021-12-01 04:30] VITALS: BP 124/52; PULSE 76; RESP 18; TEMP 36.8; O2SAT 93
[2021-12-01] MEDS: Levothyroxine 125 MCG Tablet PO (04:52)
[2021-12-01] MEDS: Acetaminophen 500 MG Tablet 1000 MG PO ×2 (04:52→13:19)
[2021-12-01] MEDS: Clindamycin 600 MG/50 ML BAG 100 MG IV (04:52)
[2021-12-01 05:49] LABS: Hematocrit 34.3 % (37-47); Hemoglobin 10.7 g/dL (12.0-15.0); Mean Corp Hgb Conc 31.2 g/dL (32-36); Mean Corpuscular Hgb 26.9 pg (27.0-32.0); Mean Corpuscular Volume 86.2 fL (81-99); Mean Platelet Vol. 9.8 fl (6.2-12.0); Platelet Count 241 K/mm3 (150-450); RBC Distribution Width CV 13.4 % (11.6-14.6); RBC Distribution Width SD 42.2 fl (35.1-43.9); Red Blood Count 3.98 M/mm3 (4.2-5.4); White Blood Count 13.4 K/mm3 (4.4-11.0)
[2021-12-01 06:11] LABS: Anion Gap 4 (5-15); BUN 15 mg/dL (7-18); BUN/Creat Ratio 15.4 RATIO (10-20); Calcium,Total 8.7 mg/dL (8.5-10.1); Chloride 104 mmol/L (98-107); Creatinine, Serum 0.98 mg/dL (0.55-1.02); EST Glomerular Filtration Rate 59 mL/min (>60); Est Glom Filt Rate - Afr Amer 71 mL/min (>60); Estimated Creatinine Clearance 42.83 ml/min; Glucose 148 mg/dL (74-106); Potassium 4.4 mmol/L (3.5-5.1); Sodium Level 133 mmol/L (136-145)
--- NOTE | 2021-12-01 07:45 | PN.ORTHO_ITS ---
Subjective Subjective Patient sitting at bedside in a chair, states pain has been well managed. Patient denies chest pain, shortness of breath, calf pain, nausea vomiting. Patient has no other complaints. Patient states she is ready for discharge home. Patient does have all of her home-going medications as she had initially been planned as an outpatient. Objective Data Objective Data Vital Signs: Vital Signs Temp Pulse Resp BP Pulse Ox O2 Del Method O2 Flow Rate 98.2 F 76 18 124/52 H 93 Room Air 2 12/01/21 04:30 12/01/21 04:30 12/01/21 04:30 12/01/21 04:30 12/01/21 04:30 12/01/21 04:30 11/30/21 21:47 Oxygen Flow Rate (L/min) 2 Oxygen Delivery Method Room Air Weight: 89 kg Body Mass Index (BMI) 33.7 Intake & Output: Intake and Output for Last 24 Hours 11/29/21 11/30/21 12/01/21 23:59 23:59 23:59 Intake Total 3237.25 / 3237.25 50 / 50 Balance 3237.25 / 3237.25 50 / 50 Lab / Micro Data Result Diagrams: 12/01/21 05:22 12/01/21 05:22 Labs: Laboratory Results - last 24 hr 11/30/21 09:07: POC Glucose 90 12/01/21 05:22: WBC 13.4 H, RBC 3.98 L, Hgb 10.7 L, Hct 34.3 L, MCV 86.2, MCH 26.9 L, MCHC 31.2 L, RDW Std Deviation 42.2, RDW Coeff of Chad 13.4, Plt Count 241, MPV 9.8 12/01/21 05:22: Sodium 133 L, Potassium 4.4, Chloride 104, Carbon Dioxide 25.0, Anion Gap 4 L, BUN 15, Creatinine 0.98, Estim Creat Clear Calc 42.83, Est GFR (MDRD) Af Amer 71, Est GFR (MDRD) Non-Af 59 L, BUN/Creatinine Ratio 15.4, Glucose 148 H, Calcium 8.7 Micro: Microbiology 11/17/21 13:32 Swab (Method) Nasal Screen MRSA/MSSA - Final Radiography Diagnostic Testing: Radiology Impression Knee X-Ray 11/30/21 12:40 IMPRESSION: Uncomplicated right total knee arthroplasty. Electronically Signed: Trae Graham MD at 13:48 EDT , Physical Exam Narrative Patient sitting up sitting in chair at bedside. Alert oriented. No respiratory distress, speaking in full sentences. Good range of motion of the upper extremities good muscle tone and strength. The dressing was clean dry intact. No calf tenderness. No signs or symptoms of DVT. Neurovascular is otherwise intact. Vital signs and labs were all reviewed noted medical record Const alert and oriented x3 General Appearance: cooperative HEENT normocephalic Eyes PERRL Resp normal respiratory effort Effort and Inspection: able to speak in complete sentences Cardio regular rate Extremity normal capillary refill Neuro CN's II-XII intact bilaterally Psych mental status grossly normal and affect normal Assessment & Plan Assessment/Plan (1) Status post total right knee replacement not using cement: PLAN: 1. Continue all pain medications as prescribed 2. Continue aspirin, and Plavix as patient was taking preoperatively for postop DVT prophylaxis 3. Encourage incentive spirometry 4. Continue physical therapy with weightbearing as tolerated with walker 5. Discharge home today after p.m. therapy 6. Follow-up as scheduled see pink sheet 7. Patient will continue outpatient physical therapy at [facility] [place]
--- NOTE | 2021-12-01 07:49 | DCINST_ITS ---
Discharge Instructions Diet Discharge Diet: No restrictions Activity Discharge Activity: Return to Normal Activity and May Shower May resume sexual activity in: No Restrictions Ice area for (Minutes): 30 Weight Bearing Status: Weight bearing as tolerated Keep extremity elevated above heart level: Operative Extremity Dressing / Incision Call your doctor if your incision/area has: Continuous Slow Oozing, Sudden Increased Bleeding, Increased Pain/ Swelling, Increased Redness, Foul Smelling Discharge and Swelling at the incision site Call your doctor if you observe: Fever of 101 or Higher Change Dressing in: leave in place till F/U Follow Up Care Please Follow Up With: Alex Franz PA-C When: As scheduled Test Results: Test results from this visit will be discussed in further detail at your follow- up appointment, if applicable. Discharge Plan Admission Admit Date/Time: 11/30/21 14:05 Primary Reason for Your Visit: Right total knee arthroplasty Attending Provider: Alvaro Del Castillo Primary Care Provider: Portillo Qureshi Consulting Providers: Zane Bell Discharge Orders/Prescriptions Prescriptions: Continued atorvastatin 80 mg tablet 80 mg PO QDAY clopidogrel 75 mg tablet 75 mg PO QDAY Label Comments: LAST DAY PRIOR TO OR 11/25/21 lisinopril 5 mg tablet 5 mg PO QDAY levothyroxine 125 mcg tablet 125 mcg PO DAILY metoprolol succinate 50 mg tablet extended release 24 hr 50 mg PO DAILY PreserVision AREDS [phone] nyhl-yq-njny capsule 1 cap PO DAILY omeprazole 20 mg tablet,delayed release (DR/EC) 40 mg PO DAILY cholecalciferol (vitamin D3) 125 mcg (5,000 unit) capsule 125 mcg PO DAILY fluoxetine 20 mg tablet 40 mg PO DAILY Label Comments: DEPRESSION aspirin 81 MG tablet,chewable 81 mg PO DAILY@0800 Label Comments: [facility] Discontinued naproxen sodium 220 MG tablet 220 mg PO DAILY PRN PRN (Reason: Pain) Label Comments: PAIN Referrals / Follow Up: Portillo Qureshi MD [Primary Care Provider] - Disposition Disposition (needs filled in before D/C Order can be placed): Home, Self Care
[2021-12-01] MEDS: Cholecalciferol (Vit D3) 125 MCG CAPSULE (5,000 UNITS) PO (08:01)
[2021-12-01 08:02] VITALS: PULSE 63
[2021-12-01] MEDS: Senna/Docusate Sodium 1 Tablet 2 TABLET PO (08:02)
[2021-12-01] MEDS: Metoprolol(XL)Succ 50 MG Tablet PO (08:02)
[2021-12-01] MEDS: Multivitamin (Healthy Eyes) Capsule 1 CAP PO (08:02)
[2021-12-01] MEDS: FLUoxetine 20 MG Capsule 40 MG PO (08:02)
[2021-12-01] MEDS: Lisinopril 5 MG Tablet PO (08:02)
[2021-12-01] MEDS: Aspirin 81 MG TAB.CHEW PO (08:02)
[2021-12-01] MEDS: Atorvastatin Calcium 80 MG Tablet PO (08:02)
[2021-12-01] MEDS: Clopidogrel Bisulfate 75 MG Tablet PO (08:02)
[2021-12-01] MEDS: Pantoprazole Sodium 40 MG Tablet PO (08:03)
[2021-12-01] MEDS: oxyCODONE 5 MG Tablet PO ×2 (08:52→13:19)
[2021-12-01 09:24] VITALS: O2SAT 98
[2021-12-01 09:43] VITALS: O2SAT 93; O2SAT 95
--- NOTE | 2021-12-01 09:58 | CASEMGMT ---
DIANE FRANCES Assessment: Face to Face with pt for initial transition planning/care coordination assessment. RN YVROSE introduced self and role at [facility], pt voices understanding and consents to assessment. Pt is A/O x4 and answers all questions appropriately at this time. Pt sitting up in chair in no distress. Care providers, pharmacy, and demographics verified/updated. Admitting Dx: R total knee with Jono PCP:Kiera Specialists:[place], cardio; [place], ortho Preferred Pharmacy: [facility] Insurance: [facility], [employer] for Life Prescription Benefit: yes LW/HPOA: Pt denies having a LW/DPOA and denies need for info regarding AD. LNOK: David León, ; Y[address], dtr Living Arrangements: Pt lives with in a single story house with 2 steps to enter. Pt reports she was I in ADL's prior. Transportation: Pt drives self and denies concerns with transportation. will provide transportation until she is able to drive again. DME/HHC/SNF: Pt has a FWW, shower chair and motor vehicle representative. Pt denies hx of HHC or SNF stays. Pt states no concerns with going home at time of dc. She has outpt therapy set up at [facility] on 12/02 at 1030am. Pt states no further concerns/needs. CM to follow. Advised pt to ask CM if any further question/concerns/needs arise, voices understanding. Pt Goal: Home with outpt therapy set up Plan: Home with outpt therapy set up
[2021-12-01 10:26] VITALS: BP 129/58; PULSE 58; RESP 16; TEMP 36.5; O2SAT 94
[2021-12-01 15:52] VITALS: BP 129/58; PULSE 63; RESP 16; TEMP 36.4; O2SAT 94
== END 2021-12-01 15:00 | disposition home or self-care (01) ==
LOC: SDC 17:15 → MS3 12-01 07:19
PROVIDERS: Anesthesiology; Admitting Provider Orthopaedic Surgery; PCP Family Medicine; Referring Provider Orthopaedic Surgery; Visit Provider Orthopaedic Surgery
PROC: 0SRC0JZ Replacement of Right Knee Joint with Synthetic Substitute, Open Approach (ICD-10-PCS; CPT 27447; principal; 2021-11-30 09:55)
DX: M17.11 Unilateral primary osteoarthritis, right knee (principal); K21.9 Gastro-esophageal reflux disease without esophagitis; I25.10 Atherosclerotic heart disease of native coronary artery without angina pectoris; E78.00 Pure hypercholesterolemia, unspecified; I10 Essential (primary) hypertension; E07.9 Disorder of thyroid, unspecified; Z79.899 Other long term (current) drug therapy; Z79.02 Long term (current) use of antithrombotics/antiplatelets; Z79.82 Long term (current) use of aspirin; Z79.890 Hormone replacement therapy
CPT/HCPCS: 27447; S2900; 01402; 64447; 36415; 73560; 80048; 82962; 83036; 83735; 84443; 85025; 85027; 87081; 88305; 88311; 96361; 96365; 96366; 97110; 97116; 97162; 97166; 97530; 97535; 99218; 99251; C1776; J7120; G0378; G0463; J2405; J3475

== ENCOUNTER → 2022-03-24 | Outpatient (CLI) | payer MEDICARE, OTHER, SELFPAY ==
--- NOTE | 2022-03-24 12:22 | CT_ITS ---
EXAM: CT LEFT LOWER EXTREMITY WITHOUT INTRAVENOUS CONTRAST CLINICAL INDICATION: PREOP TECHNIQUE: Helically acquired images were obtained of the left lower extremity without intravenous contrast. 2-D reformats were performed by the technologist. This CT exam was performed using one or more of the following dose reduction techniques: automated exposure control, adjustment of the mA and/or kV according to patient size, and/or use of iterative reconstruction technique. This report was created using Peer[employer] report VitalsGuard technology. COMPARISON: None. FINDINGS: BONES/JOINTS: Multiplanar CT imaging of the left hip, knee and ankle demonstrate moderate sized knee joint effusion. Narrowing of the medial knee joint compartment noted associated with osteophytosis. Mild narrowing of the patellofemoral joint space is also present. Mild acetabular bony spurring noted. Mild narrowing of the left hip joint space. No acute fracture or subluxation. Narrowing of the ankle joints noted. No periarticular erosion or demineralization to suggest inflammatory arthritis. Plantar calcaneal spur noted. SOFT TISSUES: Normal. No soft tissue swelling or gas. No radiopaque foreign body. CT/Extremity Lower without Contra IMPRESSION: 1. Moderate osteoarthritis of the left knee with moderate size joint effusion. 2. Mild degenerative change of the left hip. 3. Moderate degenerative narrowing of the ankle joints. 4. Calcaneal spur. Electronically Signed: Juice Hines MD at 9:06 EST ,
== END | disposition home or self-care (01) ==
LOC: CT 12:07
PROVIDERS: PCP Family Medicine; Visit Provider Orthopaedic Surgery
DX: M17.12 Unilateral primary osteoarthritis, left knee (principal)
CPT/HCPCS: 73700

== ENCOUNTER 2022-04-05 09:59 | Observation (INO) | payer MEDICARE, OTHER, SELFPAY ==
--- NOTE | 2022-03-24 12:21 | EKG12_ITS ---
Test Reason : PREOP Blood Pressure : / mmHG Vent. Rate : 061 BPM Atrial Rate : 061 BPM P-R Int : 122 ms QRS Dur : 088 ms QT Int : 430 ms P-R-T Axes : 033 006 079 degrees QTc Int : 432 ms Normal sinus rhythm Normal ECG Confirmed by PATIENCE HANNON, JONES ([id number]), slot editor RYANN GARY ([id number]) on 03/26/2022 11:08:46 AM Referred By: Alvaro Del Castillo Confirmed By:JONES MORIN MD
[2022-03-24 12:26] LABS: Absolute Lymphocyte Count 1.68 X10^3/uL (0.83-4.51); Absolute Neutrophil Count 3.4 X10^3/uL (2.0-7.7); Basophil# 0.06 X10^3/uL; Eosinophil# 0.34 X10^3/uL; Eosinophils% 5.8 % (0-5); Hematocrit 39.8 % (37-47); Hemoglobin 12.5 g/dL (12.0-15.0); Lymphocyte # 1.68 X10^3/ul (0.83-4.51); Lymphocyte % 28.8 % (19-41); Mean Corp Hgb Conc 31.4 g/dL (32-36); Mean Corpuscular Hgb 25.7 pg (27.0-32.0); Mean Corpuscular Volume 81.7 fL (81-99); Mean Platelet Vol. 9.3 fl (6.2-12.0); Monocyte# 0.37 X10^3/uL; Monocyte% 6.3 % (0-10); NRBC Flagged by Analyzer 0 % (0-5); Neutrophil # 3.35 X10^3/uL (2.7-7.7); Neutrophil % 57.4 % (47-70); Platelet Count 321 K/mm3 (150-450); RBC Distribution Width CV 13.8 % (11.6-14.6); RBC Distribution Width SD 40.7 fl (35.1-43.9); Red Blood Count 4.87 M/mm3 (4.2-5.4); White Blood Count 5.8 K/mm3 (4.4-11.0)
[2022-03-24 12:54] LABS: Hemoglobin A1c 6.2 % (3.8-5.6)
[2022-03-24 12:57] LABS: Albumin, Serum 3.5 g/dL (3.2-5.0)
[2022-03-24 13:17] LABS: Anion Gap 7 (5-15); BUN 19 mg/dL (7-18); BUN/Creat Ratio 19.3 RATIO (10-20); Calcium,Total 8.6 mg/dL (8.5-10.1); Chloride 108 mmol/L (98-107); Creatinine, Serum 0.98 mg/dL (0.55-1.02); EST Glomerular Filtration Rate 58 mL/min (>60); Est Glom Filt Rate - Afr Amer 71 mL/min (>60); Glucose 181 mg/dL (74-106); Magnesium 2.4 mg/dL (1.6-2.6); Sodium Level 139 mmol/L (136-145); Thyroid Stim Hormone (TSH) 0.92 uIU/mL (0.358-3.74)
--- NOTE | 2022-03-31 15:05 | CASEMGMT ---
DIANE FRANCES Assessment: TC to pt for initial transition planning/care coordination assessment. RN YVROSE introduced self and role at [facility], pt voices understanding and consents to assessment. Care providers, pharmacy, and demographics verified/updated. Admitting Dx: Lt total knee with Jono PCP:Kiera Specialists:Yoni, cardio; ju Del Castillo Preferred Pharmacy: [facility] Insurance: [facility], for Life Prescription Benefit: yes LW/HPOA: Pt denies having a LW/DPOA and denies need for info regarding AD. LNOK: David León, ; Yudith [address], dtr Living Arrangements: Pt lives with in a single story house with 2 steps to enter. Pt reports she is I in ADL's. Transportation: Pt drives self and denies concerns with transportation. will provide transportation until she is able to drive again. DME/HHC/SNF: Pt has a FWW, shower chair, cane and fire control officer. Pt denies hx of HHC or SNF stays. Pt states no concerns with going home at time of dc. She has outpt therapy set up at [facility] on 04/09. Pt states no further concerns/needs. CM to follow. Advised pt to ask CM if any further question/concerns/needs arise, voices understanding. Pt Goal: Home with outpt therapy set up Plan: Home with outpt therapy set up
[2022-04-05] VITALS (18 sets, daily range): BP systolic 102–146; BP diastolic 45–72; PULSE 56–79; RESP 12–18; TEMP 36.2–36.6; O2SAT 45–99; BMI 33.3
--- NOTE | 2022-04-05 | KNEE_PTH ---
PATIENT: SUJATHA THORNTON LOC: MS3 U#:[id number] AGE/SX: 76/F ROOM: PR317 RE04/05/[address]: Dr. Alavro Del Castillo DO : 1945 BED: 1 DIS: 04/06/2022 SPEC #: [id number] RECD: 04/05/22 12:37 STATUS: TABITHA MANLEYGarrett #: [id number] NHUNG: 04/05/22 00:[address]: Alvaro Del Castillo DEPT: SURGICAL PATHOLOGY RECD BY: Fer Thompson ENTERED: 04/05/22 12:38 SP TYPE: TOTAL KNEE OTHR DR: Dr. Portillo Qureshi MD Tissues: Knee, NOS Procedures: Decalcification bone/plaque Surgery Specimen Level IV HEADER OPERATION: ERAS, total knee replacement robotic arm assist PRE-OP DIAGNOSIS: Primary osteoarthritis left knee TISSUE SUBMITTED: Bone and soft tissue left knee MICROSCOPIC DIAGNOSIS Bone and tissue of left knee, total knee resection: Severe degenerative joint disease. AM:tod 04/08/2022 MICROSCOPIC DESCRIPTION Slides are reviewed. GROSS DESCRIPTION Received is one container designated bone and tissue left knee. The specimen consists of multiple fragments of ybarra-yellow bone measuring in aggregate 15 x 11 x 2 cm. No soft tissue is identified. A number of bony fragments contain articular surfaces consistent with tibial plateau and femoral condyle and displaying prominent osteophyte formation, eburnation, and bone erosion. Tray Line Supervisor sections are submitted in one cassette after decalcification. / AM:tod 04/05/2022 TC:5 CPT: 55729, 32822
[2022-04-05] MEDS: Magnesium 1 GM over 15 mins IV (06:15)
[2022-04-05] MEDS: Lactated Ringers 1,000 ML 15 ML IV (06:27)
[2022-04-05] MEDS: Acetaminophen 500 MG Tablet 1000 MG PO ×2 (06:27→21:15)
[2022-04-05] MEDS: Gabapentin 600 MG Tablet PO (06:28)
[2022-04-05] MEDS: Insulin Lispro 100 UNIT/ML INSULN.PEN SC (06:39)
--- NOTE | 2022-04-05 06:40 | SUR.PREOP ---
pt's blood glucose was 205 at 0620, administered 1 unit of Humalog per ERAS protocol
[2022-04-05 06:51] LABS: Bedside Glucose 205 mg/dL (74-106)
[2022-04-05] MEDS: Clindamycin 900 MG/50 ML BAG 75 MG IV (07:36)
[2022-04-05] MEDS: TXA 1000mg in NS100 100ml (IVPB at Closure) 660 MG IV (08:41)
[2022-04-05] MEDS: TXA 1000mg in NS100 100ml (IVPB at Incision) 660 MG IV (08:41)
--- NOTE | 2022-04-05 09:01 | PCM.OPRPT ---
Report of Operation Date of Procedure: 04/05/22 Pre-Operative Diagnosis: OA left knee Post-Operative Diagnosis: same Surgery/Procedure Performed:: Left TKR Description of Surgical Findings:: Report of Operation Date of Procedure: 04/04/2022 Preoperative Diagnosis: [ left ] knee primary osteoarthritis Postoperative Diagnosis: [ left ] knee primary osteoarthritis Operation: Robotic Assisted Knee Total Arthroplasty, [ left ] knee Surgeon: Dr Alvaro Del Castillo DO Annual Greenhouse Manager: Alex Franz PA-C Anesthesia: general Anesthesiologist: Bernard Vail M.D. Findings: Stable knee with good patella tracking Specimen(s): Bony cuts Complications: No intraoperative complications Estimated Blood Loss: 30 cc IV Fluids: 1000 cc crystalloid Implants Used: 1. Patricia Triathlon press-fit CR sizze 3 femur 2. Patricia Triathlon size 4 tibia 3. 35 mm patella 4. 9 mm CS polyethylene Brief History Operative Indications: [ (76 y/o female) ] with history of [left ] knee osteoarthrosis with radiographic findings with loss of joint space, osteophyte formation and subchondral sclerosis. Failed conservative measures as mentioned in the H&P. Discussion of total knee arthroplasty as well as risk and benefits were discussed with the patient including but not limited to blood loss, DVTs, PEs, neurovascular damage, general risk of anesthesia including loss of life, and stiffness or instability were also discussed with the patient. Patient demonstrated understanding and was able to sign informed consent. Procedure: On the date of procedure, patient's [ left ] lower extremity was marked in the preoperative area. The patient was then taken back to the operating room where that patient was placed on the table in the supine position. All bony prominences were identified and well-padded. Anesthesia assumed control of the C-spine and airway throughout the remainder of the procedure. A tourniquet was placed on the [ left ] upper thigh and the leg was prepped in a sterile fashion. The surgeon then scrubbed at this time. Upon reentering the room, the [left] lower extremity was draped in a standard orthopedic fashion. A timeout was then called and everyone agreed upon the side, the site, the procedure to be performed, patient's identity and antibiotics given. Esmarch bandage was used to exsanguinate the extremity and the tourniquet was placed up to 250 mmHg with the knee in flexion. A midline skin incision was made and a sharp dissection was taken down through skin, subcutaneous tissue and fat. The standard medial parapatellar incision was made and the patella was subluxed laterally. An appropriate deep MCL release was done and the fat pad was resected. Our attention was then directed to the patella. The patella was everted and a flat resection was made. The knee was then flexed up and 2 femoral pins were placed inside the incision and 2 tibial pins were placed outside the incision in the medial tibia bicortically. Once this was completed, the 2 checkpoints in the femur and tibia were placed. Knee was then flexed up and the bony landmarks were registered. Once the was completed, the knee taken through range of motion and manually stressed allowing us to plan for an appropriate tibial cut. The robotic arm was brought into the field sterilely and checkpoint and saw were registered. Based on the patient's deformity, the tibial cut was made in [2 degrees varus ]. At this time, the tensioner was then placed in the joint and ligament tension was checked at 90 degrees and full extension. Based on the patient's ligamentous tension, appropriate adjustments were made to the operative plan and ligament releases were done. Once we were happy with our operative plan with balanced flexion and extension gaps, our attention was directed to the femur. The robot was brought into the field sterilely and registered. Posterior condylar cuts, anterior chamfer cuts and anterior cuts were appropriately made for a [size 3 ] femur. When these were completed, the saws were switched out in the distal femoral and posterior chamfer cuts were made. Protecting the soft tissue throughout this time. A [size 4 ] base plate was selected. The knee was flexed to 90 degrees and soft tissues and posterior osteophytes were removed from the joint. 40 cc of the periarticular injection was injected into the posterior medial corner of the joint. The appropriate trials were then placed on the femur and tibia. A trial polyethylene was trialed to ensure proper balancing and stability of the knee. The appropriate tibial internal rotation was then marked with a bovie. Our attention was then directed to the patella. The lug holes were drilled and the patella trial was placed. Patellar tracking was checked and deemed appropriate. Once we were happy, lug holes were drilled for the femur and trial components were removed. The tibia was subluxed and pinned into place and the keel was punched and drilled appropriately. Final components were verified and opened. The wound was copiously irrigated with normal saline. The components were impacted into place with the tibia, femur and finally the patella. The trial poly component was placed and the knee was placed in full extension. The tracking, alignment and balance were verified and a [ 9 mm CS ] polyethylene component was placed. Once the final components were placed an Irrisept lavage was performed and the wound was copiously irrigated with normal saline solution and the periarticular injection was given. the wound was closed in a layer-garcia fashion using #1 vicryl interrupted sutures for the arthrotomy, 2-0 interrupted vicryl suture for the subcuticular layer and bekah for final skin closure. A sterile compressive dressing was then placed. The patient was then awakened from anesthesia, transferred to the rgillespie and transferred to the PACU for recovery. My physician career services assistant was a vital part of this case. He was important in appropriate retraction during the case, and protection of soft tissues during bony cuts. His intimate knowledge of the case and my steps aided in safe and expedient completion of the procedure as well as appropriate position of the leg during the case. He was also vital in assisting with closure under my direct supervision. Due to the complexity of this case, robotic arm was used to assist in the surgery to improve accuracy and clinical outcomes. Post-op Plan: DVT ppx; ASA 81 mg BID, thigh high compression stockings Follow up: in office in 2 weeks for wound check PT: to start POD #0 at hospital, outpatient PT should be arranged. Preoperative antibiotic: Cleocin 900 mg IV Alvaro Del Castillo DO Surgeon: Alvaro Del Castillo hair worker: Alex Franz Type of Anesthesia: General Anesthesiologist: Bernard Vail Specimen's removed: bone Estimated Blood Loss (mL): 30 cc Fluids Replaced: 1000 cc crystalloid Admit VTE Documentation VTE Present on Admission: No VTE Mechan Device Prophylaxis: SCD's and Thigh High EUNICE Hose VTE Pharm Prophylaxis ordered?: Yes
[2022-04-05] MEDS: Lactated Ringers 1,000 ML 125 ML IV ×2 (09:30→17:17)
[2022-04-05] MEDS: Lactated Ringers 1,000 ML 999 ML IV (09:45)
--- NOTE | 2022-04-05 09:45 | RAD_ITS ---
STUDY: X-RAY - LEFT KNEE REASON FOR EXAM: Female, 76 years old. Post op -- AP and Lateral xray of operative knee in PACU TECHNIQUE: 2 view(s) of the knee. COMPARISON: None. FINDINGS: Normal visualized distal femur. Normal visualized proximal tibia and fibula. Normal proximal tibiofibular articulation. The patient is status post total knee replacement. There is good alignment. Postoperative soft tissue changes. RAD/Knee 1 or 2 Views IMPRESSION: Status post total knee replacement. There is good alignment. Postoperative soft tissue changes. Electronically Signed: Jarad Max MD at 10:02 EST ,
[2022-04-05 10:56] LABS: Bedside Glucose 131 mg/dL (74-106)
[2022-04-05] MEDS: Clindamycin 600 MG/50 ML BAG 100 MG IV ×2 (13:38→19:29)
[2022-04-05] MEDS: Senna/Docusate Sodium 1 Tablet 2 TABLET PO (21:14)
[2022-04-06 00:23] VITALS: BP 123/53; PULSE 65; RESP 16; TEMP 36.5; O2SAT 99
[2022-04-06] MEDS: Clindamycin 600 MG/50 ML BAG 100 MG IV (01:07)
[2022-04-06 04:23] VITALS: BP 125/60; PULSE 76; RESP 16; TEMP 36.5; O2SAT 98
[2022-04-06] MEDS: Acetaminophen 500 MG Tablet 1000 MG PO (05:08)
[2022-04-06] MEDS: Levothyroxine 125 MCG Tablet PO (05:09)
[2022-04-06 06:32] LABS: Hematocrit 33.1 % (37-47); Hemoglobin 9.8 g/dL (12.0-15.0); Mean Corp Hgb Conc 29.6 g/dL (32-36); Mean Corpuscular Hgb 24.7 pg (27.0-32.0); Mean Corpuscular Volume 83.6 fL (81-99); Mean Platelet Vol. 9.9 fl (6.2-12.0); Platelet Count 262 K/mm3 (150-450); RBC Distribution Width CV 13.9 % (11.6-14.6); RBC Distribution Width SD 42.4 fl (35.1-43.9); Red Blood Count 3.96 M/mm3 (4.2-5.4); White Blood Count 11.9 K/mm3 (4.4-11.0)
[2022-04-06 07:04] LABS: Anion Gap 8 (5-15); BUN 16 mg/dL (7-18); BUN/Creat Ratio 20.9 RATIO (10-20); Calcium,Total 8.5 mg/dL (8.5-10.1); Chloride 104 mmol/L (98-107); Creatinine, Serum 0.76 mg/dL (0.55-1.02); EST Glomerular Filtration Rate 78 mL/min (>60); Est Glom Filt Rate - Afr Amer 95 mL/min (>60); Estimated Creatinine Clearance 41.97 ml/min; Glucose 109 mg/dL (74-106); Potassium 4.5 mmol/L (3.5-5.1); Sodium Level 137 mmol/L (136-145)
--- NOTE | 2022-04-06 07:46 | PN.ORTHO_ITS ---
Subjective Subjective Patient sitting in chair at bedside. Patient states her pain has been very well managed. Patient denies chest pain, shortness of breath, calf pain, nausea vomiting. Patient states she is ready for discharge home. She has no other complaints at this time. Objective Data Objective Data Vital Signs: Vital Signs Temp Pulse Resp BP Pulse Ox O2 Del Method O2 Flow Rate 97.7 F L 76 16 125/60 H 98 Room Air 2 04/06/22 04:23 04/06/22 04:23 04/06/22 04:23 04/06/22 04:23 04/06/22 04:23 04/06/22 04:23 04/06/22 00:23 Oxygen Flow Rate (L/min) 2 Oxygen Delivery Method Room Air Weight: 88 kg Body Mass Index (BMI) 33.3 Intake & Output: Intake and Output for Last 24 Hours 04/04/22 04/05/22 04/06/22 23:59 23:59 23:59 Intake Total 3730.33 / 3730.33 699.33 / 699.33 Balance 3730.33 / 3730.33 699.33 / 699.33 Lab / Micro Data Result Diagrams: 04/06/22 06:00 04/06/22 06:00 Labs: Laboratory Results - last 24 hr 04/05/22 10:35: POC Glucose 131 H 04/06/22 06:00: WBC 11.9 H, RBC 3.96 L, Hgb 9.8 L, Hct 33.1 L, MCV 83.6, MCH 24.7 L, MCHC 29.6 L, RDW Std Deviation 42.4, RDW Coeff of Chad 13.9, Plt Count 26 2, MPV 9.9 04/06/22 06:00: Sodium 137, Potassium 4.5, Chloride 104, Carbon Dioxide 25.0, Anion Gap 8, BUN 16, Creatinine 0.76, Estim Creat Clear Calc 41.97, Est GFR (MDRD) Af Amer 95, Est GFR (MDRD) Non-Af 78, BUN/Creatinine Ratio 20.9 H, Glu cose 109 H, Calcium 8.5 Micro: Microbiology 03/24/22 12:09 Nasal Secretion Nasal Screen MRSA/MSSA - Final Radiography Diagnostic Testing: Radiology Impression Knee X-Ray 04/05/22 09:45 IMPRESSION: Status post total knee replacement. There is good alignment. Postoperative soft tissue changes. Electronically Signed: Jarad Max MD at 10:02 EST , Physical Exam Narrative Upon entering the room I found patient sitting comfortably in a chair at bedside. Patient no respiratory distress, speaking in full sentences. Patient is full range of motion of the upper extremities with good muscle tone and strength. Patient has full range of motion of bilateral hips and right knee. Exam of the left knee the dressing was clean dry intact. There was mild tenderness over the area of the proximal left thigh. There was no ecchymosis. No calf tenderness. Patient has good strength with plantar flexion dorsiflexion of bilateral feet. Neurovascular is otherwise intact. Const alert and oriented x3 General Appearance: cooperative Eyes PERRL Extremity normal capillary refill Neuro CN's II-XII intact bilaterally Psych mental status grossly normal and affect normal Assessment & Plan Assessment/Plan (1) Status post total left knee replacement not using cement: PLAN: 1. Continue all pain medications as prescribed 2. Resume Plavix 75 mg as patient was taking preoperatively for postop DVT prophylaxis 3. Encourage incentive spirometry 4. Continue ice to left knee 5. Begin physical therapy today, weight-bear as tolerated with walker 6. Patient will continue outpatient physical therapy at [facility] 7. Discharge home today after p.m. therapy 8. Follow-up as scheduled
--- NOTE | 2022-04-06 07:53 | DCINST_ITS ---
Discharge Instructions Diet Discharge Diet: No restrictions Activity Discharge Activity: May Not Drive, May Shower and Use Walker May shower in (days): 3 May resume sexual activity in: No Restrictions Ice area for (Minutes): 30 Weight Bearing Status: Weight bearing as tolerated and Full weight bearing Keep extremity elevated above heart level: Operative Extremity Dressing / Incision Call your doctor if your incision/area has: Continuous Slow Oozing, Sudden Increased Bleeding, Increased Pain/ Swelling and Increased Redness Call your doctor if you observe: Fever of 101 or Higher Change Dressing in: leave in place till F/U Remove Dressing in: leave in place till F/U Follow Up Care Please Follow Up With: Alex Franz PA-C Test Results: Test results from this visit will be discussed in further detail at your follow- up appointment, if applicable. Discharge Plan Admission Admit Date/Time: 04/05/22 09:59 Primary Reason for Your Visit: Left total knee arthroplasty Attending Provider: Alvaro Del Castillo Primary Care Provider: Portillo Qureshi Discharge Orders/Prescriptions Prescriptions: New acetaminophen 500 mg Tablet 1,000 mg PO Q8 30 Days Qty: 180 0RF oxycodone 5 mg Tablet 5 - 10 mg PO Q4H PRN PRN (Reason: Pain Score 4-10) 7 Days Qty: 84 0RF Continued atorvastatin 80 mg tablet 80 mg PO QDAY clopidogrel 75 mg tablet 75 mg PO QDAY Label Comments: LAST DAY PRIOR TO OR 11/25/21 lisinopril 5 mg tablet 5 mg PO QDAY levothyroxine 125 mcg tablet 125 mcg PO DAILY metoprolol succinate 50 mg tablet extended release 24 hr 50 mg PO DAILY PreserVision AREDS [id number],[id number] capsule 1 cap PO DAILY omeprazole 20 mg tablet,delayed release (DR/EC) 40 mg PO DAILY cholecalciferol (vitamin D3) 125 mcg (5,000 unit) capsule 125 mcg PO DAILY fluoxetine 20 mg tablet 40 mg PO DAILY Label Comments: DEPRESSION aspirin 81 MG tablet,chewable 81 mg PO DAILY@0800 Label Comments: HEART HEALTH Other Ambulatory Orders: 12 Lead EKG (Routine) Timeframe: 20220324 Location: None Selected Ordered By: Dr. Zane Bell Referrals / Follow Up: Portillo Qureshi MD [Primary Care Provider] - Disposition Disposition (needs filled in before D/C Order can be placed): Home, Self Care
[2022-04-06 08:00] VITALS: BP 125/60; PULSE 76; RESP 16; TEMP 36.5; O2SAT 98
--- NOTE | 2022-04-06 09:27 | NURSING ---
pt to be D/C, refusing all morning medications, states she just wants to take everything herself once she gets home.
--- NOTE | 2022-04-06 09:43 | PHA.DC.MR ---
Pharmacy Service has performed discharge medication reconciliation for this patient. The patient's discharge medication list was reviewed for discrepancies and discrepancies were resolved. Home Medications aspirin 81 mg chewable tablet 81 mg PO DAILY@0800 heart health 10/15/14 atorvastatin 80 mg tablet 80 mg PO QDAY cholesterol 08/16/17 clopidogrel 75 mg tablet 75 mg PO QDAY anti platelet 08/16/17 lisinopril 5 mg tablet 5 mg PO QDAY blood pressure 08/16/17 levothyroxine 125 mcg tablet 125 mcg PO DAILY thyroid 08/21/18 metoprolol succinate 50 mg tablet,extended release 24 hr 50 mg PO DAILY blood pressure 08/21/18 vitamins A,C,Y-uefy-qamhft 14,320 unit-226 mg-200 unit capsule (PreserVision AREDS) 1 cap PO DAILY vitamin 08/21/18 cholecalciferol (vitamin D3) 125 mcg (5,000 unit) capsule 125 mcg PO DAILY 10/08/21 fluoxetine 20 mg tablet 40 mg PO DAILY mental health 10/08/21 omeprazole 20 mg tablet,delayed release 40 mg PO DAILY 10/08/21 acetaminophen 500 mg tablet 1,000 mg PO Q8 30 days #180 tabs 04/06/22 oxycodone 5 mg tablet 5 - 10 mg PO Q4H PRN PRN Pain Score 4-10 7 days #84 tabs 04/06/22
[2022-04-06] MEDS: oxyCODONE 5 MG Tablet PO (10:19)
--- NOTE | 2022-04-06 10:59 | CASEMGMT ---
DIANE CM in to pt room, pt sitting up in chair. Pt states she has her outpt therapy set up on the at [facility]. Pt has FWW in room. Pt denies further homegoing needs. Pt would like to go back to bed, notified GOLF BALL INSPECTOR.
[2022-04-06 13:45] VITALS: BP 120/62; PULSE 70; RESP 16; TEMP 36.4; O2SAT 98
[2022-04-06 13:47] VITALS: BP 120/62; PULSE 70; RESP 16; TEMP 36.4; O2SAT 98
== END 2022-04-06 14:29 | disposition home or self-care (01) ==
LOC: MS3 11:00 → SDC 11:01 → MS3 11:01
PROVIDERS: Anesthesiology; Admitting Provider Orthopaedic Surgery; PCP Family Medicine; Referring Provider Orthopaedic Surgery; Visit Provider Orthopaedic Surgery
PROC: 0SRD0JZ Replacement of Left Knee Joint with Synthetic Substitute, Open Approach (ICD-10-PCS; CPT 27447; principal; 2022-04-05 07:00)
DX: M17.12 Unilateral primary osteoarthritis, left knee (principal); Z79.02 Long term (current) use of antithrombotics/antiplatelets; Z79.899 Other long term (current) drug therapy; Z79.82 Long term (current) use of aspirin; Z79.890 Hormone replacement therapy; E78.00 Pure hypercholesterolemia, unspecified; R00.2 Palpitations; R94.39 Abnormal result of other cardiovascular function study; I25.10 Atherosclerotic heart disease of native coronary artery without angina pectoris; Z95.5 Presence of coronary angioplasty implant and graft; R00.1 Bradycardia, unspecified; E07.9 Disorder of thyroid, unspecified; I10 Essential (primary) hypertension
CPT/HCPCS: 27447; 01402; S2900; 64447; 36415; 73560; 80048; 82040; 82962; 83036; 83735; 84443; 85025; 85027; 87081; 88305; 88311; 93005; 96361; 96365; 96366; 97110; 97116; 97162; 97166; 97530; 97535; 99218; 99251; C1776; J7120; G0378; G0463; J2405; J3475

== ENCOUNTER → 2022-09-21 | Outpatient (CLI) | payer MEDICARE, OTHER, SELFPAY ==
[2022-09-21 18:08] LABS: Absolute Lymphocyte Count 2.03 X10^3/uL (0.83-4.51); Absolute Neutrophil Count 3.9 X10^3/uL (2.0-7.7); Basophil# 0.09 X10^3/uL; Basophil% 1.3 % (0-1); Eosinophil# 0.35 X10^3/uL; Hematocrit 32.3 % (37-47); Hemoglobin 8.8 g/dL (12.0-15.0); Lymphocyte # 2.03 X10^3/ul (0.83-4.51); Mean Corp Hgb Conc 27.2 g/dL (32-36); Mean Corpuscular Hgb 19.1 pg (27.0-32.0); Mean Corpuscular Volume 70.2 fL (81-99); Mean Platelet Vol. 9.5 fl (6.2-12.0); Monocyte# 0.67 X10^3/uL; Monocyte% 9.6 % (0-10); NRBC Flagged by Analyzer 0 % (0-5); Neutrophil # 3.85 X10^3/uL (2.7-7.7); Neutrophil % 54.8 % (47-70); Platelet Count 394 K/mm3 (150-450); RBC Distribution Width CV 17.7 % (11.6-14.6); RBC Distribution Width SD 44.3 fl (35.1-43.9)
[2022-09-21 19:12] LABS: Vitamin D,25 Hydroxy 64.4 ng/mL
[2022-09-21 19:14] LABS: ALB/GLOB Ratio 0.9 RATIO (0.9-2.4); AST(SGOT) 27 U/L (15-37); Alanine Aminotransfer ALT/SGPT 27 U/L (13-56); Albumin, Serum 3.6 g/dL (3.2-5.0); Alkaline Phosphatase 117 U/L (45-117); Anion Gap 8 (5-15); BUN 17 mg/dL (7-18); BUN/Creat Ratio 19.1 RATIO (10-20); Calcium,Total 8.8 mg/dL (8.5-10.1); Chloride 108 mmol/L (98-107); Cholesterol 161 mg/dL (200); Creatinine, Serum 0.89 mg/dL (0.55-1.02); EST Glomerular Filtration Rate 66 mL/min (>60); Est Glom Filt Rate - Afr Amer 80 mL/min (>60); Globulin 3.9 g/dL (2.2-4.2); Glucose 92 mg/dL (74-106); High Density Lipoprotein 56 mg/dL; Potassium 4.3 mmol/L (3.5-5.1); Protein, Total 7.5 g/dL (6.4-8.2); Sodium Level 138 mmol/L (136-145); Thyroid Stim Hormone (TSH) 1.02 uIU/mL (0.358-3.74); Triglycerides 159 mg/dL; Very Low Density Lipoprotein 32 mg/dL (5-40)
[2022-09-21 20:20] LABS: Hemoglobin A1c 5.7 % (3.8-5.6)
== END | disposition home or self-care (01) ==
LOC: MFPLAB 16:18
PROVIDERS: PCP Family Medicine; Visit Provider Family Medicine
DX: E03.9 Hypothyroidism, unspecified (principal); E78.00 Pure hypercholesterolemia, unspecified; R73.03 Prediabetes; I25.10 Atherosclerotic heart disease of native coronary artery without angina pectoris; Z79.899 Other long term (current) drug therapy; R53.83 Other fatigue; E55.9 Vitamin D deficiency, unspecified
CPT/HCPCS: 36415; 80053; 80061; 82306; 83036; 84443; 85025

== ENCOUNTER → 2022-10-06 | Outpatient (CLI) | payer MEDICARE, OTHER, SELFPAY ==
--- NOTE | 2022-10-06 12:36 | BI_ITS ---
MAMMOGRAPHY - BILATERAL SCREENING REASON FOR EXAM: Female, 77 years old. Routine annual screening examination. PERTINENT HISTORY: Mother with breast cancer. TECHNIQUE: Digital bilateral breast casey (3D mammographic acquisition) in the CC and MLO projections. 2-D mediolateral oblique (MLO) and craniocaudad (CC) views of both breasts were obtained. CAD: Full Field Digital Mammography with Computer Added Detection was performed. COMPARISON: Comparison is made with prior examination July 27, 2021 and May 22, 2020. FINDINGS: Breast Composition: There are scattered areas of fibroglandular density. There are no dominant masses or suspicious calcifications. Stable benign-appearing bilateral axillary lymph nodes. No other significant abnormalities are identified. There has been no significant change since the prior study. BI/SCRN MAMM (CAD)W/CASEY BILAT IMPRESSION: Stable bilateral screening mammogram. Yearly follow-up mammogram recommended. (A) ASSESSMENT CATEGORY: BIRADS Category 2: Benign. A letter regarding these results will be sent to the patient by the facility within 30 days. Approximately 10% of breast cancers are not detected by mammography. A normal mammogram should not delay biopsy of a clinically suspicious abnormality. [id number] Electronically Signed: Jarad Max MD at 13:40 EDT ,
== END | disposition home or self-care (01) ==
LOC: OPBI 12:33
PROVIDERS: PCP Family Medicine; Referring Provider Family Medicine; Visit Provider Family Medicine
DX: Z12.31 Encounter for screening mammogram for malignant neoplasm of breast (principal)
CPT/HCPCS: 77063; 77067

== ENCOUNTER → 2022-11-23 | Outpatient (CLI) | payer MEDICARE, OTHER, SELFPAY ==
[2022-11-23 15:31] LABS: Absolute Lymphocyte Count 1.64 X10^3/uL (0.83-4.51); Absolute Neutrophil Count 3.3 X10^3/uL (2.0-7.7); Basophil% 1.7 % (0-1); Eosinophil# 0.37 X10^3/uL; Eosinophils% 6.3 % (0-5); Hematocrit 40.4 % (37-47); Lymphocyte # 1.64 X10^3/ul (0.83-4.51); Mean Corp Hgb Conc 27.2 g/dL (32-36); Mean Corpuscular Hgb 21.3 pg (27.0-32.0); Mean Corpuscular Volume 78.3 fL (81-99); Mean Platelet Vol. 9.5 fl (6.2-12.0); Monocyte# 0.46 X10^3/uL; Monocyte% 7.8 % (0-10); NRBC Flagged by Analyzer 0 % (0-5); Neutrophil # 3.28 X10^3/uL (2.7-7.7); POSITIVE MORPHOLOGY YES; Platelet Count 329 K/mm3 (150-450); RBC Distribution Width CV 26.4 % (11.6-14.6); RBC Distribution Width SD 71.8 fl (35.1-43.9); Red Blood Count 5.16 M/mm3 (4.2-5.4); White Blood Count 5.9 K/mm3 (4.4-11.0)
[2022-11-23 15:58] LABS: Vitamin B12 401 pg/mL (211-911)
[2022-11-23 16:02] LABS: Ferritin 39 ng/mL (8-252); Iron 43 ug/dL (50-170); Iron Binding Capacity,Total 323 ug/dL (250-450); PERCENT IRON SATURATION 13.3 % (15.0-55.0)
[2022-11-23 16:40] LABS: Differential Indicated SCAN CRITERIA MET
[2022-11-23 16:41] LABS: Anisocytosis 1+; Differential Comment SCANNED
== END | disposition home or self-care (01) ==
PROVIDERS: PCP Family Medicine; Referring Provider Family Medicine; Visit Provider Family Medicine
DX: D64.9 Anemia, unspecified (principal)
CPT/HCPCS: 36415; 82607; 82728; 82746; 83540; 83550; 85025

== ENCOUNTER → 2023-05-24 | Outpatient (CLI) | payer MEDICARE, OTHER, SELFPAY ==
--- OUTSIDE RECORDS SUMMARY | 2023-05-24 12:21 | XMS RPT_ITS | CCD ---
Author Name Unknown Address [address] [place] [address] Organization [facility] Care Team Providers Care Sterile Processing Technician Name Role Phone Ashleigh Rangel Unavailable Unavailable Fide Dominguez Unavailable Unavailable Yoni HANNON, Ermias Carbajal Unavailable Ashleigh Rangel Unavailable Unavailable Lino Calles MD) Primary Care Provider Kiera HANNON, Portillo Miles Primary Care Provider Allergies Allergy Classification Reported Allergen(s) Allergy Type Date of Onset Reaction(s) Facility (4 sources) penicillin drug allergy 08-30-2013 [facility] Work Phone: (1 source) Penicillins Propensity to adverse reactions to drug 10-17-2014 [facility] Work Phone: Medications Completed/Discontinued Medications Medication Drug Class(es) Dates Sig (Normalized) Sig (Original) ascorbic acid 113 mg / copper gluconate 0.4 mg / docosahexaenoic acid 87.5 mg / eicosapentaenoic acid 163 mg / lutein 2.5 mg / tocopherol acetate 100 unt / zeaxanthin 0.5 mg / zinc oxide 17.4 mg oral capsule (2 sources) Vitamin C take 1 tablet by mouth once daily PRESERVISION AREDS 2 CAPS One tablet by mouth daily MULTIPLE VITAMINS-MINERALS [id number] Mac Joiner aspirin 81 mg oral tablet (8 sources) Platelet Aggregation Inhibitor, Nonsteroidal Anti-inflammatory Drug Start: 10-14-2014 take 1 tablet by mouth once daily ASPIRIN 81 MG TABS One tablet by mouth daily ASPIRIN [id number] Ermias Vallejo MD Problems Active Problems Problem Classification Problem Date Documented Date Episodic/Chronic Cardiac dysrhythmias (4 sources) Sinus bradycardia; Translations: [Bradycardia, unspecified] Onset: 12-17-2015 12-17-2015 Chronic Coronary atherosclerosis and other heart disease (5 sources) Atherosclerotic heart disease of [place] coronary artery without angina pectoris; Translations: [Preinfarction syndrome] Onset: 10-17-2014 10-22-2014 Chronic Disorders of lipid metabolism (4 sources) Hyperlipidemia; Translations: [Hyperlipidemia, unspecified] Onset: 12-03-2014 12-03-2014 Chronic Esophageal disorders (1 source) Gastroesophageal reflux disease; Translations: [Gastro-esophageal reflux disease without esophagitis] Onset: 10-17-2014 04-27-2021 Chronic Essential hypertension (4 sources) Hypertensive disorder; Translations: [Essential (primary) hypertension] Onset: 12-17-2015 12-17-2015 Chronic Mood disorders (1 source) Depressive disorder; Translations: [Depression] Onset: 10-17-2014 04-27-2021 Chronic Other nutritional; endocrine; and metabolic disorders (3 sources) Body mass index (BMI) 30.0-30.9, adult; Translations: [Body mass index (BMI) 30.0-30.9, adult] Onset: 12-03-2014 12-06-2016 Chronic Thyroid disorders (5 sources) Iatrogenic hypothyroidism; Translations: [Hypothyroidism] Onset: 10-17-2014 12-03-2014 Chronic Unclassified (2 sources) Screening for malignant neoplasm of colon ; Translations: [Encounter for screening for malignant neoplasm of colon] 08-30-2013 Unclassified (2 sources) Long-term drug therapy; Translations: [Other emt intermediate (current) drug therapy] Onset: 12-03-2014 12-03-2014 Unclassified (1 source) FXM SUMMARY Onset: 10-17-2014 04-27-2021 Past or Other Problems Problem Classification Problem Date Documented Date Episodic/Chronic Abdominal pain (8 sources) Epigastric discomfort; Translations: [Epigastric pain] Resolved: 5 12-03-2014 Episodic Conditions associated with dizziness or vertigo (4 sources) Dizziness and giddiness; Translations: [Dizziness and giddiness] Onset: 5 12-03-2014 Episodic Coronary atherosclerosis and other heart disease (4 sources) Coronary angioplasty status; Translations: [Coronary angioplasty status] Onset: 5 10-22-2014 Episodic Nonspecific chest pain (8 sources) Chest pain, unspecified; Translations: [Chest pain, unspecified] Onset: 5 Resolved: 5 10-10-2014 Episodic Other aftercare (2 sources) Other fpc (current) drug therapy; Translations: [Other emt intermediate (current) drug therapy] Onset: 5 12-03-2014 Episodic Other aftercare (1 source) Drug therapy finding; Translations: [Other fpc (current) drug therapy] Onset: 5 04-27-2021 Episodic Other nutritional; endocrine; and metabolic disorders (6 sources) Body mass index (BMI) 29.0-29.9, adult; Translations: [Body mass index (BMI) 27.0-27.9, adult] Onset: 5 12-03-2014 Episodic Other nutritional; endocrine; and metabolic disorders (2 sources) Body mass index (BMI) 27.0-27.9, adult; Translations: [Body mass index (BMI) 27.0-27.9, adult] Onset: 5 03-14-2015 Episodic Other screening for suspected conditions (not mental disorders or infectious disease) (12 sources) Electrocardiogram abnormal; Translations: [Abnormal result of cardiovascular function study, unspecified] Onset: 5 Resolved: 5 10-14-2014 Episodic Other screening for suspected conditions (not mental disorders or infectious disease) (4 sources) Abnormal result of cardiovascular function study, unspecified; Translations: [Abnormal result of cardiovascular function study, unspecified] Onset: 5 10-14-2014 Episodic Residual codes; unclassified (6 sources) Family history of ischemic heart disease and other diseases of the circulatory system; Translations: [FH: Hypertension] 10-10-2014 Episodic Residual codes; unclassified (2 sources) FH: Hypertension; Translations: [Family history of ischemic heart disease and other diseases of the circulatory system] 12-03-2014 Episodic Results Test Name Value Interpretation Reference Range Facil ity Vital Signs Date Time Vital Sign Value Performing Clinician Angelo chatterjee 12-06-2016 15:17-0400 BMI (Body Mass Index) 30.19 kg/m2 Fide [facility] Work Phone: 12-06-2016 15:17-0400 BP Diastolic 74 mm[Hg] Fide Dominguez [facility] Work Phone: 12-06-2016 15:17-0400 BP Systolic 120 mm[Hg] Fide Dominguez [facility] Work Phone: 12-06-2016 15:17-0400 Height 162.56 cm [facility] Work Phone: 12-06-2016 15:17-0400 Pulse (Heart Rate) 56 /min [facility] Work Phone: 12-06-2016 15:17-0400 Respiratory Rate 20 /min [facility] Work Phone: 12-06-2016 15:17-0400 Weight 79.79 kg [facility] Work Phone: 06-14-2016 16:11-0500 BMI (Body Mass Index) 29.35 kg/m2 Ermias Vallejo MD [facility] Work Phone: 06-14-2016 16:11-0500 BP Diastolic 64 mm[Hg] Ermias Vallejo MD [facility] Work Phone: 06-14-2016 16:11-0500 BP Systolic 118 mm[Hg] Ermias Vallejo MD [facility] Work Phone: 06-14-2016 16:11-0500 BSA (Body Surface Area) 1.83 m2 Ermias Vallejo MD [facility] Work Phone: 06-14-2016 16:11-0500 Pulse (Heart Rate) 52 /min [facility] Work Phone: 06-14-2016 16:11-0500 Respiratory Rate 16 /min Ermias Vallejo MD [facility] Work Phone: 06-14-2016 16:11-0500 Weight 77.57 kg Ermias [facility] Work Phone: 12-17-2015 10:29-0400 Heart rate 50 /min Ermias Vallejo MD [facility] Work Phone: 10-16-2014 06:07-0400 Body surface area Derived from formula 58.12 mL/min Ermias Vallejo MD [facility] Work Phone: 08-30-2013 11:48-0400 Body Temperature 98 [degF] Ermias Vallejo MD [facility] Work Phone: 08-30-2013 11:48-0400 Height 162.56 cm Ermias Vallejo MD [facility] Work Phone: Encounters Encounter Date Encounter Type Care Provider Facility Start: 07-12-2006 Documentation procedure Pat Payne MD Work Phone: [facility] Start: 07-12-2006 Historic EMR Enrique doyle MD Work Phone: [facility] Procedures Date Procedure Procedure Detail Performing Clinician Start: 12-06-2016 End: 12-06-2016 *Hepatic Function Panel Ermias Vallejo MD Start: 12-06-2016 End: 12-06-2016 Follow Up Appt 6 months Nova mcintyre PA-C Work Phone: Start: 12-06-2016 End: 12-06-2016 Lipid panel [AGGREGATE] Ermias Vallejo MD Start: 12-06-2016 End: 12-06-2016 PFM Nova Hussein PA-C Work Phone: Start: 06-14-2016 End: 06-14-2016 Dietary management education, guidance, and counseling Ermias Vallejo MD Start: 06-14-2016 End: 11-24-2016 *Hepatic Function Panel Ermias Vallejo MD Start: 06-14-2016 End: 06-14-2016 Follow Up Appt 6 months Ermias Vallejo MD Start: 06-14-2016 End: 11-24-2016 Lipid panel [AGGREGATE] Ermias Vallejo MD Start: 06-14-2016 End: 06-14-2016 MMM Ermias Vallejo MD Start: 06-07-2016 End: 06-08-2016 *Hepatic Function Panel Ermias Vallejo MD Start: 06-07-2016 End: 06-08-2016 Lipid panel [AGGREGATE] Ermias Vallejo MD Start: 12-17-2015 End: 12-17-2015 Follow Up Appt 6 months Nova mcintyre PA-C Work Phone: Start: 12-17-2015 End: 11-24-2016 Follow Up Appt Other Nova gomez PA-C Work Phone: Start: 12-17-2015 End: 12-17-2015 PFM Nova Hussein PA-C Work Phone: Start: 12-03-2015 End: 12-12-2015 *Hepatic Function Panel Ermias Vallejo MD Start: 12-03-2015 End: 12-12-2015 Lipid panel [AGGREGATE] Ermias Vallejo MD Start: 06-18-2015 End: 06-18-2015 Follow Up Appt 6 months Ermias Vallejo MD Start: 06-18-2015 End: 06-18-2015 MM Ermias Vallejo MD Start: 06-04-2015 End: 06-04-2015 *Hepatic Function Panel Nova mcintyre PA-C Work Phone: Start: 06-04-2015 End: 06-04-2015 Lipid panel [AGGREGATE] Nova mcintyre PA-C Work Phone: Start: 03-14-2015 End: 03-14-2015 Follow Up Appt Other Nova gomez PA-C Work Phone: Start: 12-03-2014 End: 12-03-2014 *Hepatic Function Panel Nova mcintyre PA-C Work Phone: Start: 12-03-2014 End: 12-04-2014 Documentation of current medications Nova Hussein PA-C Work Phone: Start: 12-03-2014 End: 12-03-2014 Electrocardiogram, complete Nova Ortiz PA-C Work Phone: Start: 12-03-2014 End: 12-03-2014 Follow Up Appt 3 months Nova mcintyre PA-C Work Phone: Start: 12-03-2014 End: 12-03-2014 Follow Up Appt 6 months Nova mcintyre PA-C Work Phone: Start: 12-03-2014 End: 12-03-2014 Lipid panel [AGGREGATE] Nova mcintyre PA-C Work Phone: Start: 12-03-2014 End: 12-03-2014 MMM Nova Hussein PA-C Work Phone: Start: 12-03-2014 End: 12-03-2014 PFM Nova Hussein PA-C Work Phone: Start: 12-03-2014 End: 12-03-2014 Thyroid stimulating hormone (TSH) Nova Hussein PA-C Work Phone: Start: 11-20-2014 History of placement of stent for coronary artery disease S/P coronary artery stent placement Enrique Payne MD Work Phone: Start: 10-14-2014 End: 10-14-2014 *BMP Ermias Vallejo MD Start: 10-14-2014 End: 10-14-2014 *CBC with Differential Ermias Vallejo MD Start: 10-14-2014 End: 10-14-2014 aPTT Ermias Vallejo MD Start: 10-14-2014 End: 11-25-2014 Chest x-ray Ermias Vallejo MD Start: 10-14-2014 End: 10-14-2014 Coagulation factor induced.INR assay in platelet poor plasma Ermias Vallejo MD Start: 10-14-2014 End: 10-15-2014 Documentation of current medications Ermias Vallejo MD Start: 10-14-2014 End: 11-25-2014 Echocardiography Ermias Vallejo MD Start: 10-14-2014 End: 10-14-2014 Follow Up Appt 6 weeks Ermias Vallejo MD Start: 10-14-2014 End: 11-25-2014 Left Heart Cath Ermias Vallejo MD Start: 10-14-2014 End: 10-14-2014 MMM Ermias Vallejo MD Start: 08-30-2013 End: 11-24-2016 Echo exam of abdomen Angelic Ruelas Fausto Work Phone: Start: 07-11-2006 CYTOLOGY STERILE PROCESSING TECHNICIAN, CONVERTED Enrique marquez MD Work Phone: Screening for malign ant neoplasm of colon SCREENING, COLON CANCER Ermias Vallejo MD Plan of Treatment Date Care Activity Detail Author Start: 12-31-2022 Influenza vaccination Influenza Vaccine (#1) [facility] Start: 05-02-2022 Advance Directive Discussion Advance Directive Discussion [facility] Start: 05-02-2022 Depression Assessment Depression Assessment [facility] Start: 10-18-2017 Diabetes Screening Diabetes Screening [facility] Start: 07-18-2017 End: 07-18-2017 Appointment Appointment [facility] Work Phone: Start: 06-08-2017 End: 12-06-2016 *Hepatic Function Panel *Hepatic Function Panel [facility] Work Phone: Start: 06-08-2017 End: 12-06-2016 Lipid panel [AGGREGATE] *Lipid Profile CC PCP [facility] Work Phone: Start: 12-06-2016 End: 12-06-2016 Appointment Appointment [facility] Work Phone: Start: 12-06-2016 End: 12-06-2016 *Hepatic Function Panel *Hepatic Function Panel [facility] Work Phone: Start: 12-06-2016 End: 12-06-2016 Follow Up Appt 6 months Follow Up Appt 6 months [facility] Work Phone: Start: 12-06-2016 End: 12-06-2016 Lipid panel [AGGREGATE] *Lipid Profile CC PCP [facility] Work Phone: Start: 12-06-2016 End: 12-06-2016 PFM PFM [facility] Work Phone: Start: 06-14-2016 End: 11-24-2016 *Hepatic Function Panel *Hepatic Function Panel [facility] Work Phone: Start: 06-14-2016 End: 06-14-2016 Follow Up Appt 6 months Follow Up Appt 6 months [facility] Work Phone: Start: 06-14-2016 End: 11-24-2016 Lipid panel [AGGREGATE] *Lipid Profile CC PCP [facility] Work Phone: Start: 06-14-2016 End: 06-14-2016 MMM MMM [facility] Work Phone: Start: 12-17-2015 End: 12-17-2015 Follow Up Appt 6 months Follow Up Appt 6 months [facility] Work Phone: Start: 12-17-2015 End: 11-24-2016 Follow Up Appt Other Follow Up Appt Other [facility] Work Phone: Start: 12-17-2015 End: 12-17-2015 PFM PFM [facility] Work Phone: Start: 12-03-2015 End: 12-12-2015 *Hepatic Function Panel *Hepatic Function Panel [facility] Work Phone: Start: 12-03-2015 End: 12-12-2015 Lipid panel [AGGREGATE] *Lipid Profile CC PCP [facility] Work Phone: Start: 06-18-2015 End: 06-18-2015 Follow Up Appt 6 months Follow Up Appt 6 months [facility] Work Phone: Start: 06-18-2015 End: 06-18-2015 MMM MMM [facility] Work Phone: Start: 06-04-2015 End: 06-04-2015 *Hepatic Function Panel *Hepatic Function Panel [facility] Work Phone: Start: 06-04-2015 End: 06-04-2015 Lipid panel [AGGREGATE] *Lipid Profile CC PCP [facility] Work Phone: Start: 03-14-2015 End: 03-14-2015 Follow Up Appt Other Follow Up Appt Other [facility] Work Phone: Start: 12-03-2014 End: 12-03-2014 *Hepatic Function Panel *Hepatic Function Panel [facility] Work Phone: Start: 12-03-2014 End: 12-03-2014 Electrocardiogram, complete EKG (In office) [facility] Work Phone: Start: 12-03-2014 End: 12-03-2014 Follow Up Appt 3 months Follow Up Appt 3 months [facility] Work Phone: Start: 12-03-2014 End: 12-03-2014 Follow Up Appt 6 months Follow Up Appt 6 months [facility] Work Phone: Start: 12-03-2014 End: 12-03-2014 Lipid panel [AGGREGATE] *Lipid Profile CC PCP [facility] Work Phone: Start: 12-03-2014 End: 12-03-2014 MMM MMM [facility] Work Phone: Start: 12-03-2014 End: 12-03-2014 PFM PFM [facility] Work Phone: Start: 12-03-2014 End: 12-03-2014 Thyroid stimulating hormone (TSH) *TSH [facility] Work Phone: Start: 10-14-2014 End: 10-14-2014 *BMP *BMP [facility] Work Phone: Start: 10-14-2014 End: 10-14-2014 *CBC with Differential *CBC with Differential [facility] Work Phone: Start: 10-14-2014 End: 10-14-2014 aPTT *PTT-Partial Thromboplastin Time [facility] Work Phone: Start: 10-14-2014 End: 10-14-2014 aPTT Coag time (PPP) *PTT-Partial Thromboplastin Time [facility] Work Phone: Start: 10-14-2014 End: 11-25-2014 Chest x-ray X-Ray, Chest, PA & Lateral [facility] Work Phone: Start: 10-14-2014 End: 10-14-2014 Coagulation factor induced.INR assay in platelet poor plasma *PT/INR [facility] Work Phone: Start: 10-14-2014 End: 10-14-2014 Echocardiography Echocardiogram (complete) [facility] Work Phone: Start: 10-14-2014 End: 10-14-2014 Follow Up Appt 6 weeks Follow Up Appt 6 weeks [facility] Work Phone: Start: 10-14-2014 End: 10-14-2014 Left Heart Cath Left Heart Cath [facility] Work Phone: Start: 10-14-2014 End: 10-14-2014 MMM MMM [facility] Work Phone: Start: 08-30-2013 End: 11-24-2016 Echo exam of abdomen US Gallbladder [facility] Work Phone: Start: 07-23-2011 Bone Density Screening Bone Density Screening [facility] Start: 07-23-2011 Pneumococcal Vaccine: 65+ (1 - PCV) Pneumococcal Vaccine: 65+ (1 - PCV) [facility] Start: 1996 Shingrix Vaccine (1 of 2) Shingrix Vaccine (1 of 2) [facility] Start: 1965 Urine microalbumin profile DTaP,Tdap,Td Vaccine (1 - Tdap) [facility] Start: 1964 Hepatitis C Screening Hepatitis C Screening [facility] Start: 01-22-1946 Covid-19 Vaccine (#1) Covid-19 Vaccine (#1) [facility] Patient Education [facility] Work Phone: Social History Date Type Detail Facility Tobacco smoking stat [facility] Tobacco smoking consumption unknown [facility] Start: 04-11-2019 End: 04-06-2020 History of Social function [facility] Start: 04-11-2019 End: 04-06-2020 Tobacco use panel [facility] National Score (1-10 0), lower number is lower risk Not on file [facility] Start: 1945 Sex Assigned At Not on file [facility] Summary Purpose Family History No Family History Records Found Advance Directives No Advanced Directives Records Found Additional Source Comments INFORMATION SOURCE (unrecogn ized section and content) Source Comments (unrecognize d section and content) In the event this informatio n is protected by the Federal Confidentiality of Alcohol and Drug Abuse Patient Records regulations: The Federal rules restrict any use of the information to criminally investigate or prosecute any alcohol or drug abuse patient.[facility] Care Teams (unrecognized sec tion and content) FOR RECORDS PERTAINING TO PATIENTS WHO ARE OR HAVE BEEN ENROLLED IN A CHEMICAL DEPENDENCY/SUBSTANCEABUSE PROGRAM, SOME INFORMATION MAY BE OMITTED. This clinical summary was aggregated from multiple sources. Caution should be exercised in using it in the provision of clinical care. This summary normalizes information from multiple sources, and as a consequence, information in this document may materially change the coding, format and clinical context of patient data. In addition, data may be omitted in some cases. CLINICAL DECISIONS SHOULD BE BASED ON THE PRIMARY CLINICAL RECORDS. [facility]. provides no warranty or guarantee of the accuracy or completeness of information in this document.
[2023-05-24 15:55] LABS: Absolute Lymphocyte Count 1.56 X10^3/uL (0.83-4.51); Absolute Neutrophil Count 3.5 X10^3/uL (2.0-7.7); Basophil# 0.08 X10^3/uL; Basophil% 1.3 % (0-1); Eosinophil# 0.44 X10^3/uL; Eosinophils% 7.2 % (0-5); Hematocrit 44.3 % (37-47); Hemoglobin 14.5 g/dL (12.0-15.0); Lymphocyte # 1.56 X10^3/ul (0.83-4.51); Lymphocyte % 25.6 % (19-41); Mean Corp Hgb Conc 32.7 g/dL (32-36); Mean Corpuscular Hgb 30.1 pg (27.0-32.0); Mean Corpuscular Volume 92.1 fL (81-99); Monocyte% 8.2 % (0-10); NRBC Flagged by Analyzer 0 % (0-5); Neutrophil # 3.51 X10^3/uL (2.7-7.7); Neutrophil % 57.5 % (47-70); Platelet Count 252 K/mm3 (150-450); RBC Distribution Width SD 41.3 fl (35.1-43.9); Red Blood Count 4.81 M/mm3 (4.2-5.4); White Blood Count 6.1 K/mm3 (4.4-11.0)
[2023-05-24 16:24] LABS: Hemoglobin A1c 5.6 % (3.8-5.6)
[2023-05-24 16:32] LABS: AST(SGOT) 26 U/L (15-37); Alanine Aminotransfer ALT/SGPT 40 U/L (13-56); Albumin, Serum 3.6 g/dL (3.2-5.0); Alkaline Phosphatase 119 U/L (45-117); Anion Gap 6 (5-15); BUN 20 mg/dL (7-18); BUN/Creat Ratio 23.9 RATIO (10-20); Calcium,Total 9.1 mg/dL (8.5-10.1); Chloride 109 mmol/L (98-107); Cholesterol 184 mg/dL (200); Creatinine, Serum 0.84 mg/dL (0.55-1.02); EST Glomerular Filtration Rate 70 mL/min (>60); Est Glom Filt Rate - Afr Amer 85 mL/min (>60); Globulin 3.7 g/dL (2.2-4.2); Glucose 115 mg/dL (74-106); High Density Lipoprotein 53 mg/dL; Potassium 4.3 mmol/L (3.5-5.1); Protein, Total 7.3 g/dL (6.4-8.2); Sodium Level 138 mmol/L (136-145); Thyroid Stim Hormone (TSH) 1.75 uIU/mL (0.358-3.74); Triglycerides 147 mg/dL; Very Low Density Lipoprotein 29 mg/dL (5-40)
== END | disposition home or self-care (01) ==
LOC: MTLAB 12:00
PROVIDERS: PCP Family Medicine; Referring Provider Family Medicine; Visit Provider Family Medicine
DX: I10 Essential (primary) hypertension (principal); E03.9 Hypothyroidism, unspecified; R73.03 Prediabetes
CPT/HCPCS: 36415; 80053; 80061; 83036; 84443; 85025

== ENCOUNTER → 2023-11-09 | Outpatient (CLI) | payer MEDICARE, OTHER, SELFPAY ==
--- NOTE | 2023-11-09 11:34 | RAD_ITS ---
STUDY: X-RAY - LEFT WRIST REASON FOR EXAM: Female, 78 years old. Left wrist swelling radiating to forearm. TECHNIQUE: 3 view(s) of the wrist were obtained. COMPARISON: None. FINDINGS: Osteopenia. Mild arthrosis of the radiocarpal articulation. Moderate to marked arthrosis of the radial carpal row of the wrist. Moderate to marked arthrosis of the first CMC joint with substantial osteophyte formation. Small ossicle distal to the ulnar styloid, representing normal variation or the sequelae of remote injury. Normal soft tissues. RAD/Wrist min 3 Views IMPRESSION: Osteopenia with osteoarthritic changes as described. No other abnormality. Electronically Signed: Alex Arambula MD at 15:30 EDT ,
[2023-11-09 16:04] LABS: Rheumatoid Factor < 10.0 IU/mL (<15)
== END | disposition home or self-care (01) ==
LOC: MTLAB 11:30
PROVIDERS: PCP Family Medicine; Referring Provider Family Medicine; Visit Provider Family Medicine
DX: M25.432 Effusion, left wrist (principal)
CPT/HCPCS: 36415; 73110; 86431

== ENCOUNTER → 2024-08-17 | Outpatient (CLI) | payer MEDICARE, OTHER, SELFPAY ==
[2024-08-17 13:55] LABS: Thyroid Stim Hormone (TSH) 0.222 uIU/mL (0.300-4.200); Vitamin D,25 Hydroxy 44.3 ng/mL (30-100)
== END | disposition home or self-care (01) ==
LOC: LAB 11:43
PROVIDERS: PCP Family Medicine; Referring Provider Student in an Organized Health Care Education/Training Program; Visit Provider Student in an Organized Health Care Education/Training Program
DX: E55.9 Vitamin D deficiency, unspecified (principal); R53.83 Other fatigue
CPT/HCPCS: 36415; 82306; 84443

== ENCOUNTER → 2024-08-20 | Outpatient (CLI) | payer MEDICARE, OTHER, SELFPAY ==
[2024-08-20 11:04] LABS: Absolute Lymphocyte Count 1.66 X10^3/uL (0.83-4.51); Absolute Neutrophil Count 2.7 X10^3/uL (2.0-7.7); Basophil# 0.09 X10^3/uL; Basophil% 1.7 % (0-1); Eosinophil# 0.49 X10^3/uL; Eosinophils% 9.1 % (0-5); Hematocrit 34.6 % (37-47); Hemoglobin 10.1 g/dL (12.0-15.0); Lymphocyte # 1.66 X10^3/ul (0.83-4.51); Lymphocyte % 30.9 % (19-41); Mean Corp Hgb Conc 29.2 g/dL (32-36); Mean Corpuscular Hgb 21.2 pg (27.0-32.0); Mean Corpuscular Volume 72.5 fL (81-99); Monocyte# 0.42 X10^3/uL; Monocyte% 7.8 % (0-10); NRBC Flagged by Analyzer 0 % (0-5); Neutrophil % 50.3 % (47-70); Platelet Count 310 K/mm3 (150-450); RBC Distribution Width SD 41.1 fl (35.1-43.9); Red Blood Count 4.77 M/mm3 (4.2-5.4); White Blood Count 5.4 K/mm3 (4.4-11.0)
[2024-08-20 11:39] LABS: Hemoglobin A1c 5.9 % (<=5.6)
[2024-08-20 22:36] LABS: ALB/GLOB Ratio 1.4 RATIO (0.9-2.4); AST(SGOT) 30 U/L (<=31); Alanine Aminotransfer ALT/SGPT 22 U/L (<=34); Albumin, Serum 3.9 g/dL (3.4-4.8); Alkaline Phosphatase 92 U/L (35-104); Anion Gap 12 (5-15); BUN 18 mg/dL (4-19); BUN/Creat Ratio 20.4 RATIO (10-20); Bilirubin, Direct 0.14 mg/dL (0.00-0.30); Calcium,Total 8.7 mg/dL (7.6-11.0); Carbon Dioxide 18.1 mmol/L (21.0-32.0); Chloride 108 mmol/L (98-108); Creatinine, Serum 0.88 mg/dL (0.70-1.20); EST Glomerular Filtration Rate 67 (>60); Globulin 2.8 g/dL (2.2-4.2); Glucose 111 mg/dL (70-99); Potassium 4.6 mmol/L (3.3-5.1); Protein, Total 6.7 g/dL (5.9-8.4); Sodium Level 138 mmol/L (133-145); Total Bilirubin 0.35 mg/dL (0.00-1.30)
[2024-08-20 23:08] LABS: Cholesterol 170 mg/dL (<=200); High Density Lipoprotein 53 mg/dL; Low Density Lipoprotein Calc. 90 mg/dL; Triglycerides 134 mg/dL; Very Low Density Lipoprotein 27 mg/dL (5-40); cholesterol:hdl ratio screen 3.21
== END | disposition home or self-care (01) ==
LOC: MTLAB 08:41
PROVIDERS: PCP Family Medicine; Referring Provider Student in an Organized Health Care Education/Training Program; Visit Provider Student in an Organized Health Care Education/Training Program
DX: E11.9 Type 2 diabetes mellitus without complications (principal); R53.83 Other fatigue; I10 Essential (primary) hypertension; E78.00 Pure hypercholesterolemia, unspecified
CPT/HCPCS: 36415; 80053; 80061; 82248; 83036; 85025

== ENCOUNTER → 2024-09-06 | Outpatient (CLI) | payer MEDICARE, OTHER, SELFPAY ==
--- NOTE | 2024-09-06 12:48 | STRESSREP ---
Stress Test Report Pharmacologic myocardial perfusion stress test. 79-year-old lady with a history of chest pain Resting EKG demonstrates sinus bradycardia with a rate of 57 bpm. Resting blood pressure is 122/74 mmHg. 0.4 mg of regadenoson was infused per usual protocol followed by rapid intravenous saline flush injection. Continuous EKG monitoring was performed. The maximum heart rate was 66 bpm which was 46% of max impacted heart rate the maximum workload was 1 metabolic equivalent. At rest there were no ST or T wave changes noted to suggest ischemia and at peak infusion nonspecific ST changes were noted which did not meet the criteria for ischemia. No clinical angina is noted. The final blood pressure was 122/64 mmHg. Myocardial perfusion protocol. 11.9 mCi of technetium 99m sestamibi was injected at rest. 0.4 mg of regadenoson was infused per usual protocol. At peak infusion 33.1 mCi of technetium 99m sestamibi was injected stress images were obtained stress and rest images were reconstructed and compared in the short axis vertical long and horizontal long axis. Gated images were also obtained. Perfusion SPECT analysis: Review of the stress images demonstrate normal uptake of tracer noted in all areas of the myocardium. The resting images similar demonstrated normal uptake of tracer noted in all areas of the myocardium. No areas of reversibility are noted to suggest ischemia and no previous infarct is noted. Gated SPECT analysis: The gated ejection fraction is 83%. Conclusion: Normal pharmacologic myocardial perfusion stress test. Preserved ejection fraction.
== END | disposition home or self-care (01) ==
PROVIDERS: PCP Family Medicine; Referring Provider Student in an Organized Health Care Education/Training Program; Visit Provider Student in an Organized Health Care Education/Training Program
DX: R07.9 Chest pain, unspecified (principal); R53.83 Other fatigue
CPT/HCPCS: 78452; 93017; A9500; A4216; J2785

== ENCOUNTER → 2024-11-01 | Outpatient (CLI) | payer MEDICARE, OTHER, SELFPAY ==
[2024-11-01 10:20] LABS: Hematocrit 40.7 % (37-47); Hemoglobin 11.8 g/dL (12.0-15.0); Immature Granulocytes Count 0.010 X10^3/uL (0.0-0.0); Mean Corp Hgb Conc 29.0 g/dL (32-36); Mean Corpuscular Volume 76.8 fL (81-99); Mean Platelet Vol. 9.6 fl (6.2-12.0); NRBC Flagged by Analyzer 0 % (0-5); POSITIVE MORPHOLOGY YES; Platelet Count 306 K/mm3 (150-450); RBC Distribution Width CV 23.8 % (11.6-14.6); RBC Distribution Width SD 63.6 fl (35.1-43.9); Red Blood Count 5.30 M/mm3 (4.2-5.4); White Blood Count 5.5 K/mm3 (4.4-11.0)
[2024-11-01 10:24] LABS: Differential Indicated SCAN CRITERIA MET
[2024-11-01 10:47] LABS: AST(SGOT) 25 U/L (<=31); Alanine Aminotransfer ALT/SGPT 16 U/L (<=34); Albumin, Serum 4.0 g/dL (3.4-4.8); Alkaline Phosphatase 96 U/L (35-104); Anion Gap 9 (5-15); BUN 21 mg/dL (4-19); BUN/Creat Ratio 23.9 RATIO (10-20); Calcium,Total 9.2 mg/dL (7.6-11.0); Carbon Dioxide 20.3 mmol/L (21.0-32.0); Chloride 110 mmol/L (98-108); Globulin 3.0 g/dL (2.2-4.2); Glucose 115 mg/dL (70-99); Potassium 4.9 mmol/L (3.3-5.1)
[2024-11-01 10:58] LABS: AST(SGOT) 25 U/L (<=31); Alanine Aminotransfer ALT/SGPT 17 U/L (<=34); Albumin, Serum 4.0 g/dL (3.4-4.8); Alkaline Phosphatase 96 U/L (35-104); Bilirubin, Direct 0.11 mg/dL (0.00-0.30); Cholesterol 147 mg/dL (<=200); Globulin 3.1 g/dL (2.2-4.2); Low Density Lipoprotein Calc. 65 mg/dL; Triglycerides 141 mg/dL; Very Low Density Lipoprotein 28 mg/dL (5-40); cholesterol:hdl ratio screen 2.73
[2024-11-01 11:00] LABS: Anisocytosis 2+; Differential Comment SCANNED
== END | disposition home or self-care (01) ==
LOC: MTLAB 08:23
PROVIDERS: PCP Family Medicine; Referring Provider Family Medicine; Visit Provider Student in an Organized Health Care Education/Training Program
DX: R73.03 Prediabetes (principal); D64.9 Anemia, unspecified; I10 Essential (primary) hypertension; E78.00 Pure hypercholesterolemia, unspecified
CPT/HCPCS: 36415; 80053; 80061; 80076; 83036; 85025

== ENCOUNTER → 2025-02-04 | Outpatient (CLI) | payer MEDICARE, OTHER, SELFPAY ==
--- NOTE | 2025-02-04 09:31 | MRI_ITS ---
PROCEDURE: UPPER EXT JOINT ONLY W/WO CONT 02/04/2025 REASON FOR EXAM: LOCALIZED SWELLING, MASS AND LUMP, LEFT UPPER LIMB TECHNIQUE: Procedure Code: [id number] Modality: MR Procedure: UPPER EXT JOINT ONLY W/WO CONT CONTRAST: Clariscan VOLUME: 17 mL COMPARISON: None FINDINGS: There is a large complex cystic lesion arising within the radial volar aspect of the wrist measuring 31 x 32 by 46 mm. This demonstrates no internal enhancement and likely reflects a large ganglion cyst. This causes localized mass effect. Flexor and extensor tendons appear normal. The carpal tunnel has a normal signal with normal signal in the median nerve. There is no destructive osseous lesion. Degenerative cystic changes seen within the navicular bone and osteoarthritic changes of the basal joint and STT joint present. There is degenerative changes present in the radiocarpal joint and distal radioulnar joint. A degenerative tear is present throughout the TFCC. Underlying musculature is intact. No solid mass seen. MRI/Upper Ext Joint Only W/WO Cont IMPRESSION: Complex tear of the triangular fibrocartilage. Degenerative changes of the radiocarpal joint, STT joint and basal joint. The area of palpable concern in the wrist corresponds to a large complex gangli on cyst Reading Location: [id number]
== END | disposition home or self-care (01) ==
LOC: MRI 09:25
PROVIDERS: PCP Family Medicine; Referring Provider Orthopaedic Surgery; Visit Provider Orthopaedic Surgery
DX: R22.32 Localized swelling, mass and lump, left upper limb (principal)
CPT/HCPCS: 73223; A9575; A4216

== ENCOUNTER → 2025-02-21 | Outpatient (CLI) | payer MEDICARE, OTHER, SELFPAY ==
[2025-02-21 15:15] LABS: Hematocrit 44.2 % (37-47); Hemoglobin 14.2 g/dL (12.0-15.0); Mean Corp Hgb Conc 32.1 g/dL (32-36); Mean Corpuscular Volume 85.3 fL (81-99); Mean Platelet Vol. 9.9 fl (6.2-12.0); Platelet Count 264 K/mm3 (150-450); RBC Distribution Width CV 16.8 % (11.6-14.6); RBC Distribution Width SD 51.9 fl (35.1-43.9); Red Blood Count 5.18 M/mm3 (4.2-5.4); White Blood Count 6.3 K/mm3 (4.4-11.0)
== END | disposition home or self-care (01) ==
LOC: MFPLAB 11:33
PROVIDERS: PCP Family Medicine; Visit Provider Family Medicine
DX: D64.9 Anemia, unspecified (principal); E03.9 Hypothyroidism, unspecified; R73.03 Prediabetes
CPT/HCPCS: 36415; 83036; 84443; 85027